=== PATIENT | female | born 1945 | race Two or more races ===

== ENCOUNTER 2024-09-23 14:14 | Inpatient (IN) | payer MEDICARE, OTHER ==
[~2024-09-23] VITALS: Ht 162.6 cm; Wt 120.1 kg
--- NOTE | 2024-09-23 14:26 | ED.PDOC ---
Altered Mental Status HPI Comments 79Y F presents to ED via EMS with chief complaint ALOC x today. Per EMS, pt has been experiencing worsening confusion today. Pt received call from PCP stating her UA showed a UTI and the culture showed that it was resistant to oral abx. Pt was referred to ED for IV abx. No other symptoms or history reported. Time Seen by MD: 14:20 Reviewed Notes: Nurses Notes, Heel Pricker Notes, Medications, Allergies Allergies: Coded Allergies: Codeine (Verified Allergy, Unknown, 09/23/24) Gabapentin (Verified Allergy, Unknown, 09/23/24) Uncoded Allergies: OPIATES (Allergy, Unknown, 09/23/24) Information Source: Patient, Emergency Med Personnel Mode of Arrival: EMS Brought in by: EMS Severity: Moderate Timing: Hours Duration: Since onset Prehospital treatment: None Quality: Confusion Recent: None History of: None Associated Signs and Symptoms: None Past Medical History PAST MEDICAL HISTORY: Unobtainable Surgical History: Unobtainable 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 Family History Family History: Unknown Social History Smoker: Non-Smoker Alcohol: Denies ETOH Use Drugs: Denies Drug Use Lives In: Home Constitutional: denies: chills, diaphoresis, fatigue, fever, malaise, sweats, weakness, others EENTM: denies: blurred vision, double vision, ear bleeding, ear discharge, ear drainage, ear pain, ear ringing, eye pain, eye redness, hearing loss, mouth pain, mouth swelling, nasal discharge, nose bleeding, nose congestion, nose pain, photophobia, tearing, throat pain, throat swelling, voice changes, others Respiratory: denies: cough, hemoptysis, orthopnea, SOB at rest, shortness of breath, SOB with excertion, stridor, wheezing, others Cardiovascular: denies: chest pain, dizzy spells, diaphoresis, Dyspnea on exertion, edema, irregular heart beat, left arm pain, lightheadedness, palpitations, PND, syncope, others Gastrointestinal: denies: abdomen distended, abdominal pain, blood streaked bowels, constipated, diarrhea, dysphagia, difficulty swallowing, hematemesis, melena, nausea, poor appetite, poor fluid intake, rectal bleeding, rectal pain, vomiting, others Genitourinary: denies: abnormal vagina bleeding, burning, dyspareunia, dysuria, flank pain, frequency, hematuria, incontinence, pain, , vagina discharge, urgency, others Neurological: reports: others (confused); denies: dizziness, fainting, headache, left sided numbness, left sided weakness, numbness, paresthesia, pre-existing deficit, right sided numbness, right sided weakness, seizure, speech problems, tingling, tremors, weakness Musculoskeletal: denies: back pain, gout, joint pain, joint swelling, muscle pain, muscle stiffness, neck pain, others Integumetry: denies: bruises, change in color, change in hair/nails, dryness, laceration, lesions, lumps, rash, wounds, others Allergic/Immunocompromised: denies: Difficulty Healing, Frequent Infections, Hives, Itching, others Hematologic/Lymphatic: denies: anemia, blood clots, easy bleeding, easy bruising, swollen glands, others Endocrine: denies: excessive hunger, excessive sweating, excessive thirst, excessive urination, flushing, intolerance to cold, intolerance to heat, unexplained weight gain, unexplained weight loss, others Psychiatric: denies: anxiety, bipolar disorder, depression, hopeless, panic disorder, schizophrenia, sleepless, suicidal, others All Other Systems: Reviewed and Negative Physical Exam General Appearance: No Apparent Distress, Normal, Other (confused) HEENT: Normal ENT Inspection, Pharynx Normal, TMs Normal Neck: Full Range of Motion, Non-Tender, Normal, Normal Inspection Respiratory: Chest Non-Tender, Lungs Clear, No Accessory Muscle Use, No Respiratory Distress, Normal Breath Sounds Cardiovascular: No Edema, No JVD, No Murmur, No Gallop, Normal Peripheral Pulses, Regular Rate/Rhythm Breast Exam: Deferred Gastrointestinal: No Organomegaly, Non Tender, No Pulsatile Mass, Normal Bowel Sounds, Soft Genitalia: Deferred Pelvic: Deferred Rectal: Deferred Extremities: No calf tenderness, Normal capillary refill, Normal inspection, Normal range of motion, Non-tender, No pedal edema Musculoskeletal : Apperance: Normal Neurologic: Alert, supervisor rubber covering II-XII nml as Tested, No Motor Deficits, Normal Affect, Normal Mood, No Sensory Deficits Cerebellar Function: NOT DONE Reflexes: NOT DONE Skin: Dry, Normal Color, Warm Lymphatic: No Adenopathy Was a procedure done? Was a procedure done?: No Differential Diagnosis (ALOC) Differential Diagnosis: Other (UTI) X-Ray, Labs, Meds, VS Vital Signs Date Time Temp Pulse Resp B/P (MAP) Pulse Ox O2 Delivery O2 Flow Rate FiO2 09/23/24 15:01 98.0 96 20 102/74 (83) 93 98.0 Lab Test 09/23/24 15:45 09/23/24 14:43 Range/Units White Blood Count 5.3 4.4-10.8 10^3/uL Red Blood Count 4.23 4.0-5.20 10^6/uL Hemoglobin 9.8 L 12.2-16.2 g/dL Hematocrit 33.6 L 36.0-46.0 % Mean Corpuscular Volume 79.5 L 80.0-100.0 fL Mean Corpuscular Hemoglobin 23.2 L 28.0-32.0 pg Mean Corpuscular Hemoglobin Concent 29.1 L 32.0-36.0 g/dL Red Cell Distribution Width 32.3 H 11.8-14.3 % Platelet Count 272 140-450 10^3/uL Mean Platelet Volume 8.1 6.9-10.8 fL Neutrophils (%) (Auto) 81.0 H 37.0-80.0 % Lymphocytes (%) (Auto) 8.8 L 10.0-50.0 % Monocytes (%) (Auto) 9.3 0.0-12.0 % Eosinophils (%) (Auto) 0.6 0.0-7.0 % Basophils (%) (Auto) 0.3 0.0-2.0 % Neutrophils # (Auto) 4.3 1.6-8.6 10 ^3/uL Lymphocytes # (Auto) 0.5 0.4-5.4 10 ^3/uL Monocytes # (Auto) 0.5 0-1.3 10 ^3/uL Eosinophils # (Auto) 0 0-0.8 10 ^3/uL Basophils # (Auto) 0 0-0.2 10 ^3/uL Nucleated Red Blood Cells 0.4 % Platelet Estimate Adequate Hypochromasia (manual) Moderate Anisocytosis (manual) Marked Microcytosis Slight Target Cells Moderate Tear Drop Cells Few Schistocytes Few Troponin I High Sensitivity 11 12 </=34 ng/L Sodium Level 137 136-145 mmol/L Potassium Level 5.7 *H 3.5-5.1 mmol/L Chloride Level 105 98-107 mmol/L Carbon Dioxide Level 24 20-31 mmol/L Anion Gap 8 5-15 Blood Urea Nitrogen 23 9-23 mg/dL Creatinine 1.46 H 0.550-1.02 mg/dL Glomerular Filtration Rate Calc 37 >90 mL/min BUN/Creatinine Ratio 15.8 10.0-20.0 Serum Glucose 75 74-106 mg/dL Lactic Acid Level 1.8 0.4-2.0 mmol/L Calcium Level 9.1 8.7-10.4 mg/dL B-Type Natriuretic Peptide 929.08 0-100 pg/mL Current Medications Medications (Trade) Dose Ordered Sig/Rj Route Start Time Stop Time Status Last Admin Sodium Bicarbonate 100 ml ONCE ONCE IV 09/23/24 16:00 09/23/24 16:33 DC 09/23/24 17:09 Calcium Gluconate/ Sodium Chloride 50 ml @ 100 mls/hr Q30M IV 09/23/24 16:00 09/23/24 16:59 DC 09/23/24 17:07 Dextrose 50 ml ONCE ONCE IV 09/23/24 16:00 09/23/24 16:33 DC 09/23/24 17:09 Insulin Human Regular (InsuLIN R) 10 units ONCE ONCE IV 09/23/24 16:00 09/23/24 16:33 DC 09/23/24 17:11 [place] [address] Ph: [phone] DIAGNOSTIC IMAGING Diagnostic Imaging Report : [id number] Signed PATIENT: LEESA ONEILL ACCT: [id number] UNIT: [id number] : 1945 LOC: ER ROOM / BED: / AGE / SEX: 79 / F ADM STATUS: REG ER SERVICE 1452 ORDERING PHYSICIAN: LATIA COHN MD PROCEDURE(s): CXRP - CHEST PORTABLE REASON: FEVER ORDER NUMBER(s): [id number], ACCESSION NUMBER(s): [id number] CHEST RADIOGRAPH Indication: FEVER Technique: Single frontal view of the chest was obtained COMPARISON: None FINDINGS: Lines and Tubes: None Lungs: Congestion Pleura: No effusion. No pneumothorax. Cardiomediastinal contours: Unremarkable Bones: Unremarkable IMPRESSION: Congestion ATED BY: LIAM GOEL MD DICTATED DATE/TIME: 09/23/241541 SIGNED BY: LIAM GOEL MD SIGNED DATE/TIME: 09/23/241541 CC: Time of 1ST Reevaluation: 14:50 Reevaluation 1ST: Unchanged Patient Education/Counseling: Diagnosis, Treatment Family Education/Counseling: No Family Present Departure 1 Departure Time of Disposition: 17:32 (Patient has a urinary tract infection that is sensitive to meropenem, Zosyn, ertapenem. Resistant to all other antibiotics and was tested against. We will start patient on Zosyn and admit patient for further workup) Impression: Primary Impression: Complicated UTI (urinary tract infection) Additional Impression: Metabolic encephalopathy Disposition: ADMITTED INPATIENT Admit to: Med Surg Condition: Serious Critical Care Note Critical Care Time?: Yes Critical care comment: Altered mental status Authorized and Performed by: Latia Cohn MD Total critical care time: Approximately 33 minutes Due to a high probability of clinically significant, life threatening deterioration, the patient required my highest level of preparedness to intervene emergently and I personally spent this critical care time directly and personally managing the patient. This critical care time included obtaining a history; examining the patient; pulse oximetry; ordering and review of studies; arranging urgent treatment with development of a management plan; evaluation of patient's response to treatment; frequent reassessment; and, discussions with other providers. This critical care time was performed to assess and manage the high probability of imminent, life-threatening deterioration that could result in multi-organ failure. It was exclusive of separately billable procedures and treating other patients and teaching time. Please see my other sections and the rest of the note for further information on patient assessment and treatment. Stability Stability form required: No Heart Score Heart Score: Heart Score Response (Comments) Value History N/A 0 EKG N/A 0 Age N/A 0 Risk Factors N/A 0 Troponin N/A 0 Total 0 I personally scribed for LATIA COHN MD ([email or web address]) on 09/23/24 at 14:26. Electronically submitted by Karyn Wheat ([facility]). I personally scribed for LATIA COHN MD ([facility] on 09/23/24 at 16:54. Electronically submitted by Karyn Wheat ([email or web address]). LATIA COHN MD Sep 23, 2024 14:26
[2024-09-23 15:00] VITALS: PULSE 83; RESP 14; O2SAT 95
[2024-09-23 15:24] LABS: Chloride 105 mmol/L (98-107); Sodium 137 mmol/L (136-145)
[2024-09-23 15:25] LABS: Anion Gap 8 (5-15); Carbon Dioxide 24 mmol/L (20-31)
[2024-09-23 15:26] LABS: Calcium 9.1 mg/dL (8.7-10.4)
[2024-09-23 15:30] LABS: BUN/Creatinine Ratio 15.8 (10.0-20.0); Blood Urea Nitrogen 23 mg/dL (9-23); Glucose 75 mg/dL (74-106)
[2024-09-23 15:40] LABS: Potassium 5.7 mmol/L (3.5-5.1)
--- NOTE | 2024-09-23 15:44 | DVH ---
CHEST RADIOGRAPH Indication: FEVER Technique: Single frontal view of the chest was obtained COMPARISON: None FINDINGS: Lines and Tubes: None Lungs: Congestion Pleura: No effusion. No pneumothorax. Cardiomediastinal contours: Unremarkable Bones: Unremarkable IMPRESSION: Congestion
[2024-09-23 16:10] LABS: Basophils # (auto) 0 10 ^3/uL (0-0.2); Basophils % (auto) 0.3 % (0.0-2.0); Eosinophils # (auto) 0 10 ^3/uL (0-0.8); Eosinophils % (auto) 0.6 % (0.0-7.0); Hemoglobin 9.8 g/dL (12.2-16.2); Lymphocytes # (auto) 0.5 10 ^3/uL (0.4-5.4); Lymphocytes % (auto) 8.8 % (10.0-50.0); Monocytes # (auto) 0.5 10 ^3/uL (0-1.3); Neutrophils # (auto) 4.3 10 ^3/uL (1.6-8.6); Nucleated Red Blood Cells % 0.4 %
[2024-09-23 16:13] LABS: Hematocrit 33.6 % (36.0-46.0); Mean Corpuscular Hemoglobin 23.2 pg (28.0-32.0); Mean Corpuscular Hgb Conc. 29.1 g/dL (32.0-36.0); Mean Corpuscular Volume 79.5 fL (80.0-100.0); Monocytes % (auto) 9.3 % (0.0-12.0); Platelet Count (auto) 272 10^3/uL (140-450); Red Blood Cells 4.23 10^6/uL (4.0-5.20); Red Cell Distribution Width 32.3 % (11.8-14.3); White Blood Cell 5.3 10^3/uL (4.4-10.8)
[2024-09-23 16:51] LABS: Anisocytosis Marked; Hypochromia Moderate; Platelet Estimate Adequate
[2024-09-23 16:52] LABS: Target Cell MODERATE; Tear Drop Cells FEW
[2024-09-23] MEDS: CALCIUM GLUC 1,000mg/50ml-NS 50 ML IV SCH (16:59)
[2024-09-23] MEDS: DEXTROSE (50%) 50ML SYRG IV ONE (17:09)
[2024-09-23] MEDS: SODIUM BICARB 8.4% 50Meq/50ml SYR Vial IV ONE (17:09)
[2024-09-23] MEDS: InsuLIN REG 1unit/0.01ml Soln (100units/ml) IV ONE (17:11)
[2024-09-23] MEDS: diphenhdrAMINE HCL 50 MG/1 ML VL IV ONE ×2 (17:44→17:46)
[2024-09-23] MEDS: PIPERACILLIN-TAZO 4.5GM 100 ML IV ONE (17:45)
[2024-09-23 19:47] VITALS: PULSE 84; RESP 16; O2SAT 99
[2024-09-23] MEDS: SODIUM CHLORIDE 0.9% 500 ML IV ONE (21:06)
--- NOTE | 2024-09-23 23:04 | DVHHPRES ---
History of Present Illness Resident Creating Document: LAURA NEVILLE RESIDENT History of Present Illness Patient is a 79-year-old female with unknown past medical history, who was brought in by ambulance due to patient experiencing increasing confusion over the last few days. According to the patient's daughter, patient was being treated for UTI on oral antibiotics, however, they received a call from patient's PCP earlier today on 09/23/2024 stating that patient has a resistant UTI not responding to oral antibiotics, requested patient to go to the nearest ER for IV antibiotic therapy. At the time of my assessment, patient is AO x2 and unable to provide accurate past medical history, past surgical history, social history or home medications. On review of systems patient does note fatigue, chills, shortness of breath, palpitations, nausea, vomiting and diarrhea. Past Medical History Unobtainable Past Surgical History Unobtainable Past Social History Unobtainable Review of Systems Constitutional: Yes: Chills, Malaise; No: Fever, Sweats, Weakness, Other Eyes: No: Pain, Vision change, Conjunctivae inflammation, Eyelid inflammation, Other, Redness ENT: No: Ear pain, Ear discharge, Nose pain, Nose discharge, Nose congestion, Mouth pain, Mouth swelling, Throat pain, Throat swelling, Other Respiratory: Shortness of breath; No: Cough, Dry, SOB with excertion, Wheezing, Hemoptysis, Pleuritic Pain, Sputum, Wheezing, Other Cardiovascular: Palpitations; No: Chest Pain, Orthopnea, Paroxysmal Noc. Dyspnea, Edema, Lt Headedness, Other Gastrointestinal: Nausea, Vomiting, Diarrhea; No: Abdominal Pain, Constipation, Melena, Hematochezia, Other Genitourinary: No Dysuria, No Frequency, No Incontinence, No Hematuria, No Retention, No Other Musculoskeletal: No: other, neck pain, shoulder pain, arm pain, back pain, hand pain, leg pain, foot pain Skin: No: Rash, Lesions, Jaundice, Bruising, Other Neurological: No: Weakness, Numbness, Incoordination, Change in speech, Confusion, Seizures, Other Allergies: Coded Allergies: Codeine (Verified Allergy, Unknown, 09/23/24) Gabapentin (Verified Allergy, Unknown, 09/23/24) Uncoded Allergies: OPIATES (Allergy, Unknown, 09/23/24) Exam Vital Signs Vital Signs Date Time Temp Pulse Resp B/P (MAP) Pulse Ox O2 Delivery O2 Flow Rate FiO2 09/23/24 20:00 93 09/23/24 19:47 98.4 16 95/64 (74) 99 98.4 09/23/24 15:00 Nasal Cannula* 2 28 General Appearance: Alert, Cooperative, No acute distress, Other (AO x2) HEENT: Atraumatic, PERRLA, EOMI Respiratory: Clear to auscultation, Normal air movement, Other (Decreased bilateral breath sounds) Cardiovascular: Regular rate, No murmurs Abdominal: Normal bowel sounds, No tenderness Extremities: Other (2+ lower extremity edema) Skin: No rashes Neuro: Normal speech Psych/Mental Status: Mood NL Labs/Xrays Labs Test 09/23/24 18:25 09/23/24 15:45 09/23/24 14:43 Range/Units Troponin I High Sensitivity 12 </=34 ng/L White Blood Count 5.3 4.4-10.8 10^3/uL Red Blood Count 4.23 4.0-5.20 10^6/uL Hemoglobin 9.8 L 12.2-16.2 g/dL Hematocrit 33.6 L 36.0-46.0 % Mean Corpuscular Volume 79.5 L 80.0-100.0 fL Mean Corpuscular Hemoglobin 23.2 L 28.0-32.0 pg Mean Corpuscular Hemoglobin Concent 29.1 L 32.0-36.0 g/dL Red Cell Distribution Width 32.3 H 11.8-14.3 % Platelet Count 272 140-450 10^3/uL Mean Platelet Volume 8.1 6.9-10.8 fL Neutrophils (%) (Auto) 81.0 H 37.0-80.0 % Lymphocytes (%) (Auto) 8.8 L 10.0-50.0 % Monocytes (%) (Auto) 9.3 0.0-12.0 % Eosinophils (%) (Auto) 0.6 0.0-7.0 % Basophils (%) (Auto) 0.3 0.0-2.0 % Neutrophils # (Auto) 4.3 1.6-8.6 10 ^3/uL Lymphocytes # (Auto) 0.5 0.4-5.4 10 ^3/uL Monocytes # (Auto) 0.5 0-1.3 10 ^3/uL Eosinophils # (Auto) 0 0-0.8 10 ^3/uL Basophils # (Auto) 0 0-0.2 10 ^3/uL Nucleated Red Blood Cells 0.4 % Platelet Estimate Adequate Hypochromasia (manual) Moderate Anisocytosis (manual) Marked Microcytosis Slight Target Cells Moderate Tear Drop Cells Few Schistocytes Few Sodium Level 137 136-145 mmol/L Potassium Level 5.7 *H 3.5-5.1 mmol/L Chloride Level 105 98-107 mmol/L Carbon Dioxide Level 24 20-31 mmol/L Anion Gap 8 5-15 Blood Urea Nitrogen 23 9-23 mg/dL Creatinine 1.46 H 0.550-1.02 mg/dL Glomerular Filtration Rate Calc 37 >90 mL/min BUN/Creatinine Ratio 15.8 10.0-20.0 Serum Glucose 75 74-106 mg/dL Lactic Acid Level 1.8 0.4-2.0 mmol/L Calcium Level 9.1 8.7-10.4 mg/dL B-Type Natriuretic Peptide 929.08 0-100 pg/mL Assessment/Plan Assessment/Plan Acute metabolic encephalopathy, improving Probable acute complicated UTI - CXR: Congestion - head CT: No acute intracranial abnormality - ordered serum ammonia - IV Zosyn - IV NS 500 cc bolus History of AFib, on Xarelto at home Secondary hypercoagulable state due to above Congestive heart failure can not be ruled out - therapeutic Lovenox b.i.d., currently holding - ordered serum BNP - ordered echocardiogram Anemia, likely microcytic with MCV 79.5; chronic versus blood loss - ordered stool occult blood - holding Lovenox - ordered CT abdomen pelvis - patient noted to have multiple bruises on bilateral lower extremities and bilateral upper extremities, however, unable to provide accurate history regarding any recent falls [place], hemodynamically mediated/VMN on possible CKD stage III Hyperkalemia due to above, now improved - renal USG: No hydronephrosis or other renal abnormality demonstrated - IV calcium gluconate - insulin dextrose, sodium bicarb Hyperbilirubinemia Hypoalbuminemia - ordered liver ultrasound - monitor Morbid obesity - counseled Goals of care: Full code Plan discussed with patient Plan discussed with Dr. Weems Plan discussed with: Patient, Other (RN) My Orders Orders - LAURA NEVILLE RESIDENT Procedure Category Date Status Time Admit ADMIT 09/23/24 Verified 22:56 Allergies MEGAN 09/23/24 Verified 22:56 Code Status CODE 09/23/24 Verified 22:56 Acetaminophen Tablet PHA 09/23/24 Verified (Tylenol Tablet) 23:00 Enoxaparin Sodium PHA 09/24/24 Verified (Lovenox) 10:00 Complete Blood Count LAB 09/24/24 Verified 04:00 Comprehensive LAB 09/24/24 Verified Metabolic Panel 04:00 Npo (Nothing By DIET 09/24/24 Verified Mouth) Diet Breakfast Pt Request For Service PT 09/23/24 Verified 22:56 * Swallow Request ST 09/23/24 Verified 22:56 Condition: Unstable MEGAN 09/23/24 Verified 22:56 Notify Md Of Changes MEGAN 09/23/24 Verified From Base 22:56 Electrocardigram EKG 09/23/24 Verified 22:[address] 09/23/24 Verified 22:56 Stool Occult Blood LAB 09/23/24 Verified 22:56 Echo 2d Mode Cardiac US 09/23/24 Verified DOP 22:56 Comprehensive LAB 09/23/24 Verified Metabolic Panel 22:56 Complete Blood Count LAB 09/23/24 Verified 22:56 Zosyn Extended PHA 09/24/24 Verified Infusion 06:00 Kidney US 09/23/24 Verified 22:56 Date of Service: Sep 23, 2024 Billing Provider: ZOHAIB WEEMS MD Common Visit Codes: 79531-VQSDIFH INP/OBS CARE (HIGH) Secondary Visit Codes: 29629-[id number] CARE PLAN 30 MINUTES LAURA NEVILLE RESIDENT Sep 23, 2024 23:04 ZOHAIB WEEMS MD Sep 24, 2024 19:03
[2024-09-23 23:36] LABS: Basophils # (auto) 0 10 ^3/uL (0-0.2); Basophils % (auto) 0.2 % (0.0-2.0); Eosinophils # (auto) 0 10 ^3/uL (0-0.8); Eosinophils % (auto) 0.4 % (0.0-7.0); Hematocrit 30.2 % (36.0-46.0); Hemoglobin 8.9 g/dL (12.2-16.2); Lymphocytes # (auto) 0.4 10 ^3/uL (0.4-5.4); Lymphocytes % (auto) 6.8 % (10.0-50.0); Mean Corpuscular Hemoglobin 23.1 pg (28.0-32.0); Mean Corpuscular Hgb Conc. 29.4 g/dL (32.0-36.0); Mean Corpuscular Volume 78.5 fL (80.0-100.0); Monocytes # (auto) 0.6 10 ^3/uL (0-1.3); Monocytes % (auto) 11.1 % (0.0-12.0); Neutrophils # (auto) 4.6 10 ^3/uL (1.6-8.6); Neutrophils % (auto) 81.5 % (37.0-80.0); Nucleated Red Blood Cells % 0.1 %; Platelet Count (auto) 284 10^3/uL (140-450); Red Blood Cells 3.85 10^6/uL (4.0-5.20); Red Cell Distribution Width 32.2 % (11.8-14.3); White Blood Cell 5.7 10^3/uL (4.4-10.8)
[2024-09-23 23:56] LABS: Alanine Aminotransferase 23 U/L (7-40); Alkaline Phosphatase 99 U/L (46-116); Anion Gap 6 (5-15); BUN/Creatinine Ratio 14.4 (10.0-20.0); Blood Urea Nitrogen 19 mg/dL (9-23); Calcium 9.3 mg/dL (8.7-10.4); Carbon Dioxide 30 mmol/L (20-31); Chloride 105 mmol/L (98-107); Potassium 4.5 mmol/L (3.5-5.1); Sodium 141 mmol/L (136-145)
[2024-09-24] VITALS (7 sets, daily range): BP systolic 86–118; BP diastolic 47–98; PULSE 70–86; RESP 16–20; TEMP 97.3–98.6; O2SAT 91–100
[2024-09-24 00:14] LABS: Albumin 2.9 g/dL (3.2-4.8); Aspartate Aminotransferase 46 U/L (13-40); Bilirubin, Total 1.9 mg/dL (0.2-1.0); Glucose 62 mg/dL (74-106); Total Protein 5.6 g/dL (5.7-8.2)
--- NOTE | 2024-09-24 00:20 | DVH ---
EXAM: CT HEAD WITHOUT CONTRAST INDICATION: ALOC TECHNIQUE: CT of the head without intravenous contrast. Radiation Dose : 1. Head: CT Dose: CTDI volume is 58 mGy. Dose-length product is 1142 mGy*cm The dose indicators for CT are the volume Computed Tomography (CT) Dose Index (CTDIvol) and the Dose Length Product (DLP), and are measured in units of mGy and mGy-cm, respectively. These indicators are not patient dose, but values generated from the CT scanner acquisition factors. The report includes radiation exposure data for exposures received during this examination. COMPARISON: None FINDINGS: There is no evidence of acute intracranial hemorrhage, extra-axial collection, mass effect, midline s hift, herniation or hydrocephalus. The ventricles, sulci and cisterns are age appropriate. The martin-white differentiation is intact. Patchy periventricular and subcortical white matter hypoattenuation is nonspecific but may be related to small vessel ischemic disease. The visualized paranasal sinuses and mastoid air cells are clear. The surrounding soft tissues and osseous structures are unremarkable. IMPRESSION: 1. No acute intracranial abnormality. Radiation optimization: All CT scans at this facility use at least one of these dose optimization reynaldo hniques: automated exposure control mA and/or kV adjustment per patient size (includes targeted exam s where dose is matched to clinical indication) or iterative reconstruction.
--- NOTE | 2024-09-24 00:25 | DVH ---
INDICATION: hydronephrosis TECHNIQUE: Multiple real-time sonographic images of the kidneys and bladder were obtained. COMPARISON: None FINDINGS: Right kidney measures approximately 9.2 cm in length and the left 9.1 cm. Both kidneys are within nor mal limits in size, contour, echogenicity, and cortical thickness. No hydronephrosis. Castillo catheter present in a non distended urinary bladder. IMPRESSION: No hydronephrosis or other renal abnormality demonstrated.
[2024-09-24 01:35] LABS: Anisocytosis Marked; Hypochromia Moderate; Target Cell MODERATE
[2024-09-24 01:36] LABS: Platelet Estimate Adequate
[2024-09-24 01:56] LABS: Urine Bacteria None Seen /hpf (None Seen)
[2024-09-24 02:43] LABS: Urine Blood 1+ /uL (Negative); Urine Clarity Clear (Clear); Urine Color Yellow (Yellow); Urine Protein, UAD TRACE (Negative); Urine Specific Gravity 1.035 (1.001-1.035); Urine Squamous Epithelial Cell FEW /hpf (<5); Urine Urobilinogen Normal (Negative); Urine pH 5.5 (5.0-9.0)
[2024-09-24 02:47] LABS: Urine WBC < 1 /HPF (0-5)
[2024-09-24] MEDS: PIPERACILLIN-TAZOB 3.375GM 100 ML IV SCH (05:56)
--- NOTE | 2024-09-24 08:08 | DVH ---
INDICATION: ELEVATED STAR TECHNIQUE: Multiple real-time sonographic images of the abdomen were obtained. COMPARISON: None FINDINGS: Evaluation technically limited by patient body habitus. The liver is homogenous in echogenicity. The liver measures 11.8 cm. No intrahepatic biliary ductal dilatation is noted. The gallbladder wall measures 0.2 cm and is unremarkable. No gallstones or sludge is seen. The com mon duct measures 0.5 cm and is unremarkable. No pericholecystic fluid is noted. Negative sonographic Randall's sign. The right kidney measures 8.5 cm. No hydronephrosis. The pancreas is not well visualized due to obscuration from bowel gas. The visualized portions of the IVC and aorta are grossly unremarkable. There are bilateral pleural effusions. Bilateral pleural effusions. IMPRESSION: 1. No acute sonographic abnormality in the right upper quadrant. 2. Bilateral pleural effusions.
--- NOTE | 2024-09-24 08:13 | DVH ---
CLINICAL INFORMATION: 79 years old, Female; rule out intraabdominal bleed. No other clinical informa tion provided. TECHNIQUE: Axial CT images of the abdomen and pelvis were obtained without IV contrast. Coronal and s agittal reformatted images were obtained, reviewed, and stored. Evaluation of the parenchymal organs is limited without IV contrast. Evaluation of the bowel and mesentery is limited without oral contras t. All CT scans at this medical facility are performed using dose modulation techniques as appropriat e to a performed exam including the following: Automated exposure control was utilized; adjustment of the MA and/or KV according to patient size; and use of iterative reconstruction technique. CTDIvol = 27.28 mGy DLP = 1447.1 mGy-cm COMPARISON: None FINDINGS: Lung bases: Moderate right pleural effusion with overlying atelectasis and/or consolidation. Small le ft pleural effusion with mild overlying atelectasis. Moderate cardiomegaly with small pericardial eff usion. Dense coronary artery calcification. Liver: Grossly unremarkable in its noncontrast enhanced appearance. No abnormal density or focal lesi on identified. Biliary: No calcified gallstones or biliary ductal dilatation. Spleen: Unremarkable. Pancreas: Atrophic pancreas. Adrenal glands: Unremarkable. No mass. Kidneys: No hydronephrosis. No renal or ureteral calculi. Aorta/Vascular: Moderate atherosclerotic calcification. No abdominal aortic aneurysm. Retroperitoneum: No lymphadenopathy. No retroperitoneal fluid collection to suggest hematoma. Bowel/mesentery: No small bowel obstruction. Appendix is visualized and appears unremarkable. Scatte red colonic diverticula without adjacent inflammatory changes to suggest diverticulitis. Pelvic organs: Grossly unremarkable. Bladder: Unremarkable. No mass. Abdominal wall: Diffuse anasarca. Bones: Chronic appearing compression fractures involving the superior endplates of the L2 and L4 vert ebral bodies with associated sclerosis. There is up to 30% loss of height associated with both compre ssion fractures. Bilateral total hip arthroplasties with associated beam hardening artifact which bhatia its evaluation of adjacent structures. IMPRESSION: 1. Moderate right pleural effusion with overlying atelectasis and/or consolidation. Small left pleura l effusion with overlying atelectasis. 2. Moderate cardiomegaly with small pericardial effusion dense coronary artery calcification. 3. No intra-abdominal fluid collection identified to suggest hematoma. 4. Scattered colonic diverticula without adjacent inflammatory changes to suggest diverticulitis. 5. Anasarca. 6. Chronic appearing compression fractures of the L2 and L4 vertebral bodies as described above. Valeria elate with clinical findings. If there is clinical concern for an acute component of the compression fractures, MRI could be obtained.
[2024-09-24 08:30] LABS: Basophils # (auto) 0 10 ^3/uL (0-0.2); Basophils % (auto) 0.3 % (0.0-2.0); Eosinophils # (auto) 0 10 ^3/uL (0-0.8); Eosinophils % (auto) 0.7 % (0.0-7.0); Hematocrit 30.6 % (36.0-46.0); Lymphocytes # (auto) 0.4 10 ^3/uL (0.4-5.4); Lymphocytes % (auto) 7.8 % (10.0-50.0); Mean Corpuscular Hemoglobin 23.2 pg (28.0-32.0); Mean Corpuscular Hgb Conc. 29.5 g/dL (32.0-36.0); Mean Corpuscular Volume 78.8 fL (80.0-100.0); Monocytes # (auto) 0.5 10 ^3/uL (0-1.3); Monocytes % (auto) 9.3 % (0.0-12.0); Neutrophils % (auto) 81.9 % (37.0-80.0); Nucleated Red Blood Cells % 0.3 %; Platelet Count (auto) 254 10^3/uL (140-450); Red Blood Cells 3.88 10^6/uL (4.0-5.20); White Blood Cell 4.9 10^3/uL (4.4-10.8)
[2024-09-24 08:45] LABS: Alanine Aminotransferase 25 U/L (7-40); Alkaline Phosphatase 101 U/L (46-116); Anion Gap 7 (5-15); BUN/Creatinine Ratio 17.1 (10.0-20.0); Blood Urea Nitrogen 21 mg/dL (9-23); Calcium 9.2 mg/dL (8.7-10.4); Carbon Dioxide 28 mmol/L (20-31); Chloride 105 mmol/L (98-107); Potassium 4.5 mmol/L (3.5-5.1); Sodium 140 mmol/L (136-145)
[2024-09-24 08:49] LABS: Albumin 2.9 g/dL (3.2-4.8); Aspartate Aminotransferase 52 U/L (13-40); Glucose 62 mg/dL (74-106); Total Protein 5.5 g/dL (5.7-8.2)
[2024-09-24 09:34] LABS: COVID19 ANTIGEN SOFIA FIA NEGATIVE (NEGATIVE); Rapid Influenza A Negative (Negative); Rapid Influenza B Negative (Negative)
[2024-09-24] MEDS ORDERED: ENOXAPARIN SOD 120 MG/0.8 ML SYRINGE SC SCH (10:00)
[2024-09-24] MEDS ORDERED: ENOXAPARIN SOD 40 MG/0.4 ML SYRINGE SC SCH (10:00)
--- NOTE | 2024-09-24 11:16 | DVHPNRES ---
Progress Note Date Seen: Sep 24, 2024 Resident Creating Document: JAIDEN RICE RESIDENT Has the PT tested + for MRSA If YES, has PT been informed?: No Medical Necessity Reason Pt with a Central, PICC or Fol: No Subjective Review of Systems This is a 79-year-old female with unknown past medical history, patient was brought by ambulance due to patient experiencing increasing confusion over the last few days. Per patient's daughter, patient was being treated for UTI and was taking oral antibiotics however they received a call from patient's PCP earlier today on 09/23/2024 stating that the patient has a resistant UTI not responding to oral antibiotics and requested to low to the nearest ER for IV antibiotic therapy. Upon admission, the patient was alert but disoriented unable to provide accurate past medical history, social or surgical history. Upon my examination, patient was alert and disoriented. Patient was having severe bilateral peripheral edema extending to bilateral hips, 3+ pitting edema and anasarca even involving the abdomen. Initial chest x-ray showed mild pulmonary congestion, CT scan of the head was performed and came back unremarkable. We performed an abdominal CT scan which showed moderate right- sided pleural effusion and small left-sided pleural effusion associated with anasarca. Stool bacterial culture, blood culture and urine culture were ordered. Echocardiogram was ordered as well. Patient was admitted for further assessment and management. Patient seen and examined at bedside. Patient was alert but disoriented not able to provide a pertinent medical history. Grandson was hold at [phone] unable to talk to him. Upon my examination, the patient was having severe bilateral peripheral edema extending to bilateral hips, 3+ pitting edema involving also the abdomen. Start the patient on IV furosemide [address] scan of the chest due to severe right-sided pleural effusion to completely rule out pneumonia. We will try to contact family once again. ROS unable to obtain due to patient being disoriented Objective vital signs Vital Sign Date Time Temp Pulse Resp B/P (MAP) Pulse Ox O2 Delivery O2 Flow Rate FiO2 09/24/24 08:00 81 09/24/24 07:45 97.6 16 122/70 (87) 100 97.6 09/24/24 07:35 Nasal Cannula* 4 36 Total Intake and Output 09/23/24 09/23/24 09/24/24 15:00 23:00 07:00 Intake Total 100 ml Balance 100 ml medications Current Medications Medications Dose Ordered Sig/Rj Route Start Time Stop Time Status Last Admin Dose Admin Acetaminophen 325 mg Q4HP PRN PO 09/23/24 23:00 Piperacillin Sod/ Tazobactam Sod 100 ml @ 25 mls/hr Q8HR IV 09/24/24 06:00 09/24/24 05:56 25 MLS/HR Enoxaparin Sodium 110 mg Q12HR SC 09/24/24 10:00 Hold Furosemide 40 mg BIDD IV 09/24/24 18:00 Examination Physical Examination General: Patient alert but disoriented. HEENT: Normocephalic, atraumatic, moist mucous membranes Respiratory/pulmonary: There are bilateral crackles on both lung marie with decreased breath sounds significantly in the right lower lobe. No wheezes at this time. Cardiovascular: Normal heart sounds S1 and S2 with no associated murmurs Abdomen: Abdomen nondistended, there is no pain to palpation in any of the abdominal quadrants, no palpable masses. There is anasarca with abdominal edema. Extremities: There is severe bilateral peripheral edema extending to both hips, 3+ pitting edema. Peripheral Pulses: 3+ Radial (R). 3+ Radial (L). 3+ Dorsalis pedis (R). 3+ Dorsalis pedis(L) Skin: No rashes or pruritus, there is no sacral edema present at this time. Neurological: Patient seems disoriented and not providing coherent story. laboratory and microbiology Laboratory Tests 09/24/24 08:15 Test 09/24/24 08:15 Range/Units Serum Glucose 62 L 74-106 mg/dL Problem List/Assessment/Plan Problem List/Assessment/Plan Assessment/Plan Acute metabolic encephalopathy likely in the setting of sepsis -Ammonia was elevated at 33 -start lactulose 30cc daily -Correct underlying infection, currently on IV Zosyn Sepsis due to UTI due to multi drug resistant microorganism -daughter states that received a call from her PCP regarding urine culture showing a multidrug resistant microorganism requiring IV antibiotic -Ordered UA, Urine cultures -discontinue zosyn -Start meropenem -Awaiting for cultures with specific microoganism History of AFib, on Xarelto at home -therapeutic Lovenox b.i.d., currently holding -ordered serum BNP, came back at 995 -ordered echocardiogram, pending -Start furosemide 40mg IV BID Acute on chronic microcytic hypochromic anemia -ordered stool occult blood -holding Lovenox -Ordered iron panel and ferritin -ordered CT abdomen pelvis which is showing moderate right-sided pleural effusion and small left-sided pleural effusion associated with anasarca [place], hemodynamically mediated/VMN on possible CKD stage III Hyperkalemia due to above, now improved -renal USG: No hydronephrosis or other renal abnormality demonstrated Hyperbilirubinemia Hypoalbuminemia -ordered liver ultrasound which showed no sonographic abnormalities in the right upper quadrant -monitor Morbid obesity -personal financial counselor on lifestyle modifications and diet Goals of care discussed with the patient and daughter at bedside for >25min, FULL CODE Plan discussed with Dr. Carias Plan discussed with: Patient, Daughter My Orders My Orders Orders - JAIDEN RICE Procedure Category Date Status Time Urine Bacterial TANYA 09/24/24 In Process Culture 06:51 Stool Occult Blood LAB 09/24/24 Logged 06:52 Stool Wbc LAB 09/24/24 Logged 06:52 Stool Bacterial TANYA 09/24/24 Logged Culture 06:52 Furosemide Injection PHA 09/24/24 In Process (Lasix Injection) 18:[address] 09/24/24 Taken 09:31 Free T4 (Free LAB 09/24/24 Transmitted Thyroxine) 10:58 Date of Service: Sep 24, 2024 Billing Provider: ZHOAIB CARIAS MD Common Visit Codes: [id number] INP/OBS CARE(HIGH) JAIDEN RICE RESIDENT Sep 24, 2024 11:16 ZOHAIB CARIAS MD Sep 24, 2024 19:24
--- NOTE | 2024-09-24 11:18 | DVH ---
Procedure: CT CHEST WITHOUT CONTRAST Reason for study/Clinical History: PLEURAL EFFUSIONS/ PNA Comparison Study: None available at time of dictation. Exam Date: 09/24/2024 09:36 AM TECHNIQUE: Multidetector CT of the chest was performed from the lung apices to the upper abdomen with out the use of intravenous contract. Axial, coronal and sagittal multiplanar reformats were performed . Radiation Dose Information: CT Dose: CTDI volume is 29.85 mGy. Dose-length product is 1003.43 mGy*cm The dose indicators for CT are the volume Computed Tomography (CT) Dose Index (CTDIvol) and the Dose Length Product (DLP), and are measured in units of mGy and mGy-cm, respectively. These indicators are not patient dose, but values generated from the CT scanner acquisition factors. The report includes radiation exposure data for exposures received during this examination. FINDINGS: Lower neck: Normal thyroid. Lungs: Large right pleural effusion. Small left pleural effusion. Increased interstitial opacities. Heart/Vascular Structures: Cardiomegaly. Coronary artery calcifications. Lymph Nodes: No adenopathy Pleura: No pleural effusion or significant pneumothorax. Musculoskeletal: No acute osseous abnormality. Soft tissues: Normal. Upper abdomen: Limited portions of the upper abdomen are unremarkable. IMPRESSION: Cardiomegaly with CHF. Large right pleural effusion. Small left pleural effusion. Radiation optimization: All CT scans at this facility use at least one of these dose optimization reynaldo hniques: automated exposure control mA and/or kV adjustment per patient size (includes targeted exam s where dose is matched to clinical indication) or iterative reconstruction.
[2024-09-24 12:48] LABS: % Iron Saturation 8.8 % (15-50)
[2024-09-24 13:23] LABS: INR 1.42 (0.9-1.15); Partial Thromboplastin Time 31.9 SEC (24.5-34.5); Prothrombin Time 14.5 sec (9.3-11.8)
[2024-09-24] MEDS: ACETAMINOPHEN 325 MG TAB PO PRN (13:30)
[2024-09-24] MEDS: LEVOTHYROXINE SODIUM 50 MCG TAB PO SCH (13:30)
[2024-09-24] MEDS: LACTULOSE 20Gm/30ML SOLN PO SCH (14:22)
[2024-09-24] MEDS: MEROPENEM 1GM IVPB 50 ML IV SCH (14:22)
[2024-09-24] MEDS ORDERED: COEN400C8 OR (15:40)
[2024-09-24] MEDS ORDERED: ASCO500W PO (15:40)
[2024-09-24] MEDS ORDERED: LEVO112T4 PO (15:40)
[2024-09-24] MEDS ORDERED: LORA-1123 PO (15:40)
[2024-09-24] MEDS ORDERED: CHOL135C10 OR (15:40)
[2024-09-24] MEDS ORDERED: OMEG-20 PO (15:40)
[2024-09-24] MEDS ORDERED: MAGN400S25 PO (15:40)
[2024-09-24] MEDS ORDERED: BUDE1AER16 IN (15:40)
[2024-09-24] MEDS ORDERED: POTA-36 PO (15:40)
[2024-09-24] MEDS ORDERED: ACET250T20 PO (15:40)
[2024-09-24] MEDS ORDERED: FLAX100024 PO (15:40)
[2024-09-24] MEDS ORDERED: MELO7.5T7 PO (15:40)
[2024-09-24] MEDS ORDERED: DIGO0.12 PO (15:40)
[2024-09-24] MEDS ORDERED: RIVA20TA PO (15:40)
[2024-09-24] MEDS ORDERED: CYAN100060 PO (15:40)
[2024-09-24] MEDS ORDERED: FURO20TA3 PO (15:40)
[2024-09-24] MEDS ORDERED: BISA10SU45 RE (15:40)
[2024-09-24] MEDS ORDERED: IPRAAER6 IN (15:40)
[2024-09-24] MEDS ORDERED: CRAN600T OR (15:40)
[2024-09-24] MEDS ORDERED: [UNRECOGNIZED DRUG - CODE] PO (15:40)
[2024-09-24] MEDS ORDERED: CALC-509 PO (15:40)
[2024-09-24 15:56] LABS: Band Neutrophils % (manual) 0; Basophils % (manual) 0 (0.0-2.0); Blast Cells 0; Eosinophils % (manual) 0 (0-7); Metamyelocytes % 0; Myelocytes % 0; Promyelocytes % 0; Reactive Lymphocytes 0
--- NOTE | 2024-09-24 16:11 | DVH ---
CHEST RADIOGRAPH Indication: POST THORACENTESIS Technique: Single frontal view of the chest was obtained COMPARISON: XY CHEST PORTABLE on DOS: 09/23/24 FINDINGS: Lines and Tubes: None Lungs: Clear Pleura: No effusion. No pneumothorax. Cardiomediastinal contours: Unremarkable Bones: Unremarkable IMPRESSION: No appreciable pneumothorax.
[2024-09-24 16:40] LABS: Body Fluid Red Blood Cells 93 CUMM (0-2000); Body Fluid White Blood Cells 290 CUMM (0-200)
--- NOTE | 2024-09-24 16:42 | DVH ---
PROCEDURE: ULTRASOUND GUIDED THORACENTESIS USING TEMPORARY CATHETER HISTORY: 79 Female with requiring thoracentesis. DOCUMENTATION: Informed consent was obtained and a procedural time out was performed. TECHNIQUE: Ultrasound was used to locate the right pleural fluid collection with an image archived in the PACS. The skin over the right posterior hemithorax was sterilely prepped, draped, and infiltrate d with 1% lidocaine. Under real time ultrasound guidance, the right pleural space was accessed with a 19-gauge Yueh needle and connected to Vacutainers. The Yueh catheter was advanced, the needle was re moved and the temporary catheter was advanced and connected to the Vacutainer. Approximately 1.05 lit ers of right fluid was removed. The temporary catheter was removed and sterile dressings were applied . FINDINGS: Ultrasound demonstrates a right pleural effusion. Imaging confirms the needle tip within th e fluid. IMPRESSION: SUCCESSFUL ULTRASOUND GUIDED THORACENTESIS. Performed by Dr. James.
[2024-09-24] MEDS ORDERED: FUROSEMIDE 40 MG/4 ML VIAL IV SCH (18:00)
[2024-09-24] MEDS: ALBUMIN 25% 100 ML IV ONE (18:04)
[2024-09-24 18:16] LABS: Platelet Count (auto) 245 10^3/uL (140-450)
[2024-09-24 18:17] LABS: Anisocytosis Moderate; Lymphocytes % (manual) 11 (10.0-50.0); Monocytes % (manual) 9 (0-12); Platelet Estimate Adequate
[2024-09-24 18:18] LABS: Hypochromia Moderate; Large Platelets FEW; Stomatocytes Few
[2024-09-24 18:19] LABS: Target Cell MODERATE
[2024-09-25] VITALS (8 sets, daily range): BP systolic 87–155; BP diastolic 42–85; PULSE 64–98; RESP 16–20; TEMP 97.1–98.9; O2SAT 93–98
[2024-09-25 08:27] LABS: Basophils # (auto) 0.1 10 ^3/uL (0-0.2); Basophils % (auto) 1.4 % (0.0-2.0); Eosinophils # (auto) 0 10 ^3/uL (0-0.8); Eosinophils % (auto) 0.7 % (0.0-7.0); Hematocrit 30.2 % (36.0-46.0); Hemoglobin 8.6 g/dL (12.2-16.2); Lymphocytes # (auto) 0.5 10 ^3/uL (0.4-5.4); Lymphocytes % (auto) 8.7 % (10.0-50.0); Mean Corpuscular Hemoglobin 23.5 pg (28.0-32.0); Mean Corpuscular Hgb Conc. 28.5 g/dL (32.0-36.0); Mean Corpuscular Volume 82.6 fL (80.0-100.0); Monocytes # (auto) 0.6 10 ^3/uL (0-1.3); Monocytes % (auto) 11.1 % (0.0-12.0); Neutrophils # (auto) 4.1 10 ^3/uL (1.6-8.6); Neutrophils % (auto) 78.1 % (37.0-80.0); Nucleated Red Blood Cells % 0.6 %; Platelet Count (auto) 215 10^3/uL (140-450); Red Blood Cells 3.66 10^6/uL (4.0-5.20); Red Cell Distribution Width 31.9 % (11.8-14.3); White Blood Cell 5.3 10^3/uL (4.4-10.8)
[2024-09-25 08:28] LABS: Chloride 104 mmol/L (98-107); Potassium 4.6 mmol/L (3.5-5.1); Sodium 140 mmol/L (136-145)
[2024-09-25 08:29] LABS: Anion Gap 8 (5-15); Calcium 9.3 mg/dL (8.7-10.4); Carbon Dioxide 28 mmol/L (20-31)
[2024-09-25 08:34] LABS: BUN/Creatinine Ratio 15.3 (10.0-20.0); Blood Urea Nitrogen 21 mg/dL (9-23)
[2024-09-25 08:36] LABS: Glucose 68 mg/dL (74-106)
[2024-09-25 09:04] LABS: Anisocytosis Slight; Hypochromia Moderate; Target Cell MODERATE
[2024-09-25 09:05] LABS: Platelet Estimate Adequate
[2024-09-25 13:07] LABS: Protein, Body Fluid 1.9 g/dL (.)
[2024-09-25] MEDS: HALOPERIDOL 1 MG TAB PO ONE (13:53)
--- NOTE | 2024-09-25 13:55 | DVHPNRES ---
Progress Note Date Seen: Sep 25, 2024 Resident Creating Document: JAIDEN RICE RESIDENT Has the PT tested + for MRSA If YES, has PT been informed?: No Medical Necessity Reason Pt with a Central, PICC or Fol: No Subjective Review of Systems This is a 79-year-old female with unknown past medical history, patient was brought by ambulance due to patient experiencing increasing confusion over the last few days. Per patient's daughter, patient was being treated for UTI and was taking oral antibiotics however they received a call from patient's PCP earlier today on 09/23/2024 stating that the patient has a resistant UTI not responding to oral antibiotics and requested to low to the nearest ER for IV antibiotic therapy. Upon admission, the patient was alert but disoriented unable to provide accurate past medical history, social or surgical history. Upon my examination, patient was alert and disoriented. Patient was having severe bilateral peripheral edema extending to bilateral hips, 3+ pitting edema and anasarca even involving the abdomen. Initial chest x-ray showed mild pulmonary congestion, CT scan of the head was performed and came back unremarkable. We performed an abdominal CT scan which showed moderate right- sided pleural effusion and small left-sided pleural effusion associated with anasarca. Stool bacterial culture, blood culture and urine culture were ordered. Echocardiogram was ordered as well. Patient was admitted for further assessment and management. Patient seen and examined at bedside. The patient is alert and slightly more oriented in person but not in place or time. Per family, they think that she is very near to her baseline mentallywise but still disoriented. Patient had a panic attack and odd thoughts "that they are trying to poison her" we gave one dose of haloperidol since she was agitated and ripped her IVs. We place a consult for tele psych and physical therapy. We will continue IV meropenem at this time since the patient is having E coli with ESBL in the urine culture when they did as an outpatient. Preliminary urine culture at this hospitalization is showing no growth so far. We will continue antibiotics at this time and wait for psych evaluation. ROS unable to obtain due to patient is slightly disoriented. Objective vital signs Vital Sign Date Time Temp Pulse Resp B/P (MAP) Pulse Ox O2 Delivery O2 Flow Rate FiO2 09/25/24 09:00 97.9 90 18 155/83 (107) 95 97.9 09/25/24 08:00 Nasal Cannula* 2 28 Total Intake and Output 09/24/24 09/24/24 09/25/24 15:00 23:00 07:00 Intake Total 236 ml 275 ml Output Total 400 ml 175 ml Balance -164 ml 100 ml medications Current Medications Medications Dose Ordered Sig/Rj Route Start Time Stop Time Status Last Admin Dose Admin Acetaminophen 325 mg Q4HP PRN PO 09/23/24 23:00 09/24/24 20:13 325 MG Enoxaparin Sodium 110 mg Q12HR SC 09/24/24 10:00 Hold Lactulose 30 ml DAILY PO 09/24/24 16:00 09/25/24 10:39 30 ML Meropenem 50 ml @ 17 mls/hr Q12HR IV 09/24/24 12:30 09/25/24 10:39 17 MLS/HR Levothyroxine Sodium 75 mcg QAM@0600 PO 09/26/24 06:00 Examination Physical Examination General: Patient alert but disoriented. HEENT: Normocephalic, atraumatic, moist mucous membranes Respiratory/pulmonary: There are bilateral crackles on both lung marie with decreased breath sounds significantly in the right lower lobe. No wheezes at this time. Cardiovascular: Normal heart sounds S1 and S2 with no associated murmurs Abdomen: Abdomen nondistended, there is no pain to palpation in any of the abdominal quadrants, no palpable masses. There is anasarca with abdominal edema. Extremities: There is severe bilateral peripheral edema extending to both hips, 3+ pitting edema. Peripheral Pulses: 3+ Radial (R). 3+ Radial (L). 3+ Dorsalis pedis (R). 3+ Dorsalis pedis(L) Skin: No rashes or pruritus, there is no sacral edema present at this time. Neurological: Patient seems disoriented and not providing coherent story. laboratory and microbiology Laboratory Tests 09/25/24 07:07 Test 09/25/24 07:07 Range/Units Serum Glucose 68 L 74-106 mg/dL Microbiology Date/Time Source Procedure Growth Status 09/24/24 15:30 Pleural Fluid Gram Stain - Final Resulted 09/24/24 15:30 Pleural Fluid Aerobic Culture - Preliminary Resulted 09/24/24 01:45 Voided Urine Urine Culture - Preliminary Resulted 09/23/24 14:43 Blood Blood Culture - Preliminary NO GROWTH AFTER 24 HOURS OF INCUBATION. Resulted Problem List/Assessment/Plan Problem List/Assessment/Plan Assessment/Plan Acute metabolic encephalopathy likely in the setting of sepsis -Ammonia was elevated at 33 -Continue lactulose 30cc daily -Correct underlying infection, currently on IV Meropenem Sepsis due to UTI due to multi drug resistant microorganism -daughter states that received a call from her PCP regarding urine culture showing a multidrug resistant microorganism requiring IV antibiotic -Urine cultures as outpatient showed E.coli ESBL -Ordered UA, Urine cultures -Continue meropenem -Prelim cultures showing no growth so far History of AFib, on Xarelto at home -therapeutic Lovenox b.i.d., currently holding -ordered serum BNP, came back at 995 -ordered echocardiogram, pending -Continue furosemide 40mg IV BID Acute on chronic microcytic hypochromic anemia -ordered stool occult blood -holding Lovenox -Ordered iron panel and ferritin -ordered CT abdomen pelvis which is showing moderate right-sided pleural effusion and small left-sided pleural effusion associated with anasarca [place], hemodynamically mediated/VMN on possible CKD stage III Hyperkalemia due to above, now improved -renal USG: No hydronephrosis or other renal abnormality demonstrated Hyperbilirubinemia Hypoalbuminemia -ordered liver ultrasound which showed no sonographic abnormalities in the right upper quadrant -monitor Morbid obesity -primary counselor on lifestyle modifications and diet We have extensive discussion of >40min regarding patients care and plan Goals of care discussed with the patient and daughter at bedside for >25min, FULL CODE Plan discussed with Dr. Weems Plan discussed with: Patient, Daughter, Other My Orders My Orders Orders - JAIDEN IRCE Procedure Category Date Status Time Levothyroxine Tablet PHA 09/26/24 In Process (Synthroid Tablet) 06:00 Pt Request For Service PT 09/25/24 Logged 12:49 *Tele Psych Consult CONS 09/25/24 Transmitted 13:33 JAIDEN RICE RESIDENT Sep 25, 2024 13:55
--- NOTE | 2024-09-25 18:07 | DVHINCON2 ---
Date of Service if different f: Sep 25, 2024 Consultation ([facility]) Consulting Physician: NINA LANDON MD Labs Laboratory Tests Test 09/23/24 14:43 09/23/24 15:45 09/23/24 18:25 09/23/24 23:21 Lactic Acid Level 1.8 mmol/L (0.4-2.0) Tear Drop Cells Few Troponin I High Sensitivity 12 ng/L (</=34) Schistocytes Few Test 09/24/24 01:45 09/24/24 06:52 09/24/24 08:15 09/24/24 08:30 Urine Color Yellow (Yellow) Urine Clarity Clear (Clear) Urine pH 5.5 (5.0-9.0) Urine Specific [place] 1.035 (1.001-1.035) Urine Protein Trace (Negative) Urine Ketones Negative (Negative) Urine Blood 1+ /uL (Negative) Urine Nitrite Negative (Negative) Urine Bilirubin Negative (Negative) Urine Urobilinogen Normal mg/dL (Negative) Urine Leukocyte Esterase Negative /uL (Negative) Urine RBC 29 /hpf (0 - 4) Urine Microscopic WBC < 1 /HPF (0-5) Urine Squamous Epithelial Cells Few /hpf (<5) Urine Calcium Oxalate Crystals Few (None Seen) Urine Bacteria None seen /hpf (None Seen) Urine Glucose Normal mg/dL (Normal) Differential Total Cells Counted 100.0 (100) Neutrophils % (Manual) 80 (37.0-80.0) Band Neutrophils % (Manual) 0 Lymphocytes % (Manual) 11 (10.0-50.0) Monocytes % (Manual) 9 (0-12) Eosinophils % (Manual) 0 (0-7) Basophils % (Manual) 0 (0.0-2.0) Metamyelocytes % (manual) 0 Myelocytes % (Manual) 0 Promyelocytes % (Manual) 0 Blast Cells % (Manual) 0 Reactive Lymphocytes 0 Large Platelets Few Microcytosis Slight Stomatocytes Few Prothrombin Time 14.5 sec (9.3-11.8) Prothromb Time International Ratio 1.42 (0.9-1.15) Activated Partial Thromboplast Time 31.9 SEC (24.5-34.5) Iron Level 31 ug/dL (50-170) Total Iron Binding Capacity 354 ug/dL (250-425) Percent Iron Saturation 8.8 % (15-50) Ferritin 97.6 ng/mL (10-291) Total Bilirubin 2.0 mg/dL (0.2-1.0) Aspartate Amino Transf (AST/SGOT) 52 U/L (13-40) Alanine Aminotransferase (ALT/SGPT) 25 U/L (7-40) Alkaline Phosphatase 101 U/L (46-116) Ammonia 33 umol/L (11-32) B-Type Natriuretic Peptide 995.41 pg/mL (0-100) Total Protein 5.5 g/dL (5.7-8.2) Albumin 2.9 g/dL (3.2-4.8) Carcinoembryonic Antigen 4.39 ng/mL (<=5.0) Vitamin B12 Level 2466 pg/mL (211-911) Thyroid Stimulating Hormone (TSH) 14.28 uIU/mL (0.55-4.78) Free Thyroxine (T4) Calculated 0.77 ng/dL (0.89-1.76) Influenza Type A Antigen Negative (Negative) Influenza Type B Antigen Negative (Negative) SARS-CoV-2 Antigen (Rapid) Negative (NEGATIVE) Test 09/24/24 15:30 09/24/24 17:57 09/24/24 18:40 09/25/24 07:07 Body Fluid Source Pleural fluid Body Fluid pH 8.0 Body Fluid WBC (Manual) 290 CUMM (0-200) Body Fluid RBC (Manual) 93 CUMM (0-2000) Body Fluid Mononuclear Cells 25 % Body Fluid Polymorphonuclear Cells 75 % (0-25) Body Fluid Glucose 88 mg/dL (.) Body Fluid Total Protein 1.9 g/dL (.) Body Fluid Lactate Dehydrogenase 110 IU/L (.) White Blood Count 5.3 10^3/uL (4.4-10.8) Red Blood Count 3.66 10^6/uL (4.0-5.20) Hemoglobin 8.6 g/dL (12.2-16.2) Hematocrit 30.2 % (36.0-46.0) Mean Corpuscular Volume 82.6 fL (80.0-100.0) Mean Corpuscular Hemoglobin 23.5 pg (28.0-32.0) Mean Corpuscular Hemoglobin Concent 28.5 g/dL (32.0-36.0) Red Cell Distribution Width 31.9 % (11.8-14.3) Platelet Count 215 10^3/uL (140-450) Mean Platelet Volume 6.6 fL (6.9-10.8) Neutrophils (%) (Auto) 78.1 % (37.0-80.0) Lymphocytes (%) (Auto) 8.7 % (10.0-50.0) Monocytes (%) (Auto) 11.1 % (0.0-12.0) Eosinophils (%) (Auto) 0.7 % (0.0-7.0) Basophils (%) (Auto) 1.4 % (0.0-2.0) Neutrophils # (Auto) 4.1 10 ^3/uL (1.6-8.6) Lymphocytes # (Auto) 0.5 10 ^3/uL (0.4-5.4) Monocytes # (Auto) 0.6 10 ^3/uL (0-1.3) Eosinophils # (Auto) 0 10 ^3/uL (0-0.8) Basophils # (Auto) 0.1 10 ^3/uL (0-0.2) Nucleated Red Blood Cells 0.6 % Platelet Estimate Adequate Hypochromasia (manual) Moderate Anisocytosis (manual) Slight Target Cells Moderate Sodium Level 140 mmol/L (136-145) Potassium Level 4.6 mmol/L (3.5-5.1) Chloride Level 104 mmol/L (98-107) Carbon Dioxide Level 28 mmol/L (20-31) Anion Gap 8 (5-15) Blood Urea Nitrogen 21 mg/dL (9-23) Creatinine 1.37 mg/dL (0.550-1.02) Glomerular Filtration Rate Calc 40 mL/min (>90) BUN/Creatinine Ratio 15.3 (10.0-20.0) Serum Glucose 68 mg/dL (74-106) Calcium Level 9.3 mg/dL (8.7-10.4) Microbiology Date/Time Source Procedure Growth Status 09/24/24 15:30 Pleural Fluid Gram Stain - Final Resulted 09/24/24 15:30 Pleural Fluid Aerobic Culture - Preliminary Resulted 09/24/24 01:45 Voided Urine Urine Culture - Preliminary Resulted 09/23/24 14:43 Blood Blood Culture - Preliminary NO GROWTH AFTER 48 HOURS OF INCUBATION. Resulted Appetite: Fair Appearance: Stated age, Groomed Psychomotor activity: Agitated Behavioral: Uncooperative, Impulsive Eye contact: Limited Speech: Pressured, Confused Affect: Mood Congruent Mood: Depressed, Dysphoric Thought processes: Preservative Suicidal ideations: Present (passive) Homicidal ideations: Absent Orientation: Person, Place, Confused Memory intact: Poor Intellect: Marginal Abstractability: [place] Concentration: Limited Attention: Limited Judgement: Limited Insight: Limited Vitals Vital Signs Date Time Temp Pulse Resp B/P (MAP) Pulse Ox O2 Delivery O2 Flow Rate FiO2 09/25/24 16:45 97.3 95 18 93/47 (62) 93 97.3 09/25/24 08:00 Nasal Cannula* 2 28 Current medications Current Medications Medications Dose Ordered Sig/Rj Route Start Time Stop Time Status Last Admin Dose Admin Acetaminophen 325 mg Q4HP PRN PO 09/23/24 23:00 09/24/24 20:13 325 MG Enoxaparin Sodium 110 mg Q12HR SC 09/24/24 10:00 Hold Lactulose 30 ml DAILY PO 09/24/24 16:00 09/25/24 10:39 30 ML Meropenem 50 ml @ 17 mls/hr Q12HR IV 09/24/24 12:30 09/25/24 10:39 17 MLS/HR Levothyroxine Sodium 75 mcg QAM@0600 PO 09/26/24 06:00 Enoxaparin Sodium 40 mg DAILY SC 09/26/24 10:00 UNV Treatment plan discussed: Family Medication adjusted: Yes Diagnosis: unspecified mood disorder, delirium r/o dementia Plan : patient reports suicidal thoughts, no plan reported but depressed and tearful on exam Recommend 1:1 sitter for safety and re-evaluation Recommend zoloft 25mg, 1 tab po daily for mood History of Present Illness Reason for Consult : per report, asking for family that have HPI : This is 79-year-old female presents here for evaluation of resistant UTI and treatment. Patient was evaluated via telepsychiatry with family at bedside. Patient was labile on exam. She had periods of being calm while son fed her snacks and then yelling and crying that she wants to and be with Lisa. Per family, daughter, Lisa one year ago via accident and patient is still grieving. Family does report frequent UTI and this being here usually behavior with UTIs. She reports admission here due to fall and not UTI. per family, pt did have a fall and behavior also changed with fall, she is more confused and trouble with remembering. She could not recall current date. Patient reports mood as "not very good" at times. She reports feeling depressed and was tearful on exam. She reports thoughts to and go be with daughter. She did not report any plan or intent but also replies "who knows." she refused to elaborate. Family denies reports of suicidal ideation in the past. She denies homicidal thoughts. She denies auditory/visual hallucinations or paranoid thoughts. She did not answer about sleeping pattern. Appetite is intact per family. Past Psychiatric History : Per family, no hx of psych admissions, holds or suicide attempts. She did seek therapy after daughter's passing but no current outpatient follow up. Family denies trials of psychotropic medications in the past. Past Medical History : family denies Social History : She lives with family. No known family history. No known substance use history. ZITA SANTIAGO DNP Sep 25, 2024 18:07
[2024-09-25] MEDS: SODIUM CHLORIDE 0.9% 1,000 ML IV ONE (21:23)
[2024-09-26] VITALS (8 sets, daily range): BP systolic 93–115; BP diastolic 49–99; PULSE 72–125; RESP 16–20; TEMP 97.4–98.6; O2SAT 88–99
[2024-09-26] MEDS: LEVOTHYROXINE SODIUM 25 MCG TAB PO SCH (05:35)
[2024-09-26 08:07] LABS: AFP Serum Tumor Marker 1.8 ng/mL (0.0-9.2); Cancer Antigen (CA) 125 57.1 U/mL (0.0-38.1); Cancer Antigen (CA) 15-3 31.5 U/mL (0.0-25.0); Carbohydrate Antigen 19-9 22 U/mL (0-35)
[2024-09-26] MEDS ORDERED: ENOXAPARIN SOD 40 MG/0.4 ML SYRINGE SC SCH (10:00)
--- NOTE | 2024-09-26 13:19 | DVHPN2 ---
Subjective The patient is seen and examined at bedside. Complain of severe pain. Patient had multiple wounds and just had bandage and dressing change Reviewed: Care Plan, H&P, Labs, Medications, Previous Orders, Radiology Changes from previous H/P or p: No Changes Eyes: No Pain, No Vision change, No Conjunctivae inflammation, No Eyelid inflammation, No Other, No Redness ENT: No Ear pain, No Ear discharge, No Nose pain, No Nose discharge, No Nose congestion, No Mouth pain, No Mouth swelling, No Throat pain, No Throat swelling, No Other Cardiovascular: No Chest Pain; Palpitations; No Orthopnea, No Paroxysmal Noc. Dyspnea, No Edema, No Lt Headedness, No Other Respiratory: No Cough, No Dry; Shortness of breath; No SOB with excertion, No Wheezing, No Hemoptysis, No Pleuritic Pain, No Sputum, No Other Gastrointestinal: Nausea, Vomiting; No Abdominal Pain; Diarrhea; No Constipation, No Melena, No Hematochezia, No Other Genitourinary: No Dysuria, No Frequency, No Incontinence, No Hematuria, No Retention, No Other Musculoskeletal: No other, No neck pain, No shoulder pain, No arm pain, No back pain, No hand pain, No leg pain, No foot pain Skin: No Rash, No Lesions, No Jaundice, No Bruising, No Other Objective Vitals Vital Signs Date Time Temp Pulse Resp B/P (MAP) Pulse Ox O2 Delivery O2 Flow Rate FiO2 09/26/24 08:00 81 18 97 Nasal Cannula* 2 28 09/26/24 05:00 97.7 102/61 (75) 97.7 Intake/Output Intake and Output 09/26/24 07:00 Intake Total 621 ml Output Total 375 ml Balance 246 ml Intake Oral 504 ml IV Total 117 ml Output Urine Total 375 ml Medications Current Medications Medications Dose Ordered Sig/Rj Route Start Time Stop Time Status Last Admin Dose Admin Acetaminophen 325 mg Q4HP PRN PO 09/23/24 23:00 09/26/24 10:33 325 MG Enoxaparin Sodium 110 mg Q12HR SC 09/24/24 10:00 Hold Lactulose 30 ml DAILY PO 09/24/24 16:00 09/25/24 10:39 30 ML Meropenem 50 ml @ 17 mls/hr Q12HR IV 09/24/24 12:30 09/26/24 10:23 17 MLS/HR Levothyroxine Sodium 75 mcg QAM@0600 PO 09/26/24 06:00 Laboratory Results Laboratory Tests 09/25/24 07:07 Urinalysis Test 09/24/24 01:45 Urine Color Yellow (Yellow) Urine Clarity Clear (Clear) Urine pH 5.5 (5.0-9.0) Urine Specific [place] 1.035 (1.001-1.035) Urine Protein Trace (Negative) H Urine Ketones Negative (Negative) Urine Blood 1+ /uL (Negative) H Urine Nitrite Negative (Negative) Urine Bilirubin Negative (Negative) Urine Urobilinogen Normal mg/dL (Negative) Urine Leukocyte Esterase Negative /uL (Negative) Urine RBC 29 /hpf (0 - 4) Urine Microscopic WBC < 1 /HPF (0-5) Urine Squamous Epithelial Cells Few /hpf (<5) Urine Calcium Oxalate Crystals Few (None Seen) Urine Bacteria None seen /hpf (None Seen) Urine Glucose Normal mg/dL (Normal) Microbiology Microbiology Date/Time Source Procedure Growth Status 09/24/24 15:30 Pleural Fluid Gram Stain - Final Resulted 09/24/24 15:30 Pleural Fluid Aerobic Culture - Preliminary Resulted 09/24/24 01:45 Voided Urine Urine Culture - Final Complete 09/23/24 14:43 Blood Blood Culture - Preliminary NO GROWTH AFTER 48 HOURS OF INCUBATION. Resulted Assessment/Plan Assessment/Plan Acute metabolic encephalopathy likely in the setting of sepsis -Ammonia was elevated at 33 -Continue lactulose 30cc daily -Correct underlying infection, currently on IV Meropenem Sepsis due to UTI due to multi drug resistant microorganism -daughter states that received a call from her PCP regarding urine culture showing a multidrug resistant microorganism requiring IV antibiotic -Urine cultures as outpatient showed E.coli ESBL -Ordered UA, Urine cultures -Continue meropenem -Prelim cultures showing no growth so far History of AFib, on Xarelto at home -therapeutic Lovenox b.i.d., currently holding -ordered serum BNP, came back at 995 -ordered echocardiogram, pending -Continue furosemide 40mg IV BID Acute on chronic microcytic hypochromic anemia -ordered stool occult blood -holding Lovenox -Ordered iron panel and ferritin -ordered CT abdomen pelvis which is showing moderate right-sided pleural effusion and small left-sided pleural effusion associated with anasarca [place], hemodynamically mediated/VMN on possible CKD stage III Hyperkalemia due to above, now improved -renal USG: No hydronephrosis or other renal abnormality demonstrated Hyperbilirubinemia Hypoalbuminemia -ordered liver ultrasound which showed no sonographic abnormalities in the right upper quadrant -monitor Morbid obesity -scholarship counselor on lifestyle modifications and diet Severe pain Agree with morphine and [place] today. Severe protein calorie malnutrition Recommend supplement such as boost, patient declined. Anxiety We will give Ativan 1 mg IV q.4 PRN for anxious This medical document was created using an electronic medical record system with [employer] direct computerized dictation system. Although this document has been carefully reviewed, there may still be some phonetic and typographical errors. These areas are purely typographical due to imperfections of the software programs, and do not reflect any compromise in the patient's medical care. Plan discussed with: Patient, Daughter, Son Date of Service: Sep 26, 2024 Billing Provider: EZEKIEL ROGERS MD Common Visit Codes: [id number] INP/OBS CARE(HIGH) EZEKIEL ROGERS MD Sep 26, 2024 13:19
[2024-09-26] MEDS: SERTRALINE HCL 50 MG TAB PO SCH (16:05)
[2024-09-26] MEDS: LORazepam 2MG/ML-1ML VIAL IV PRN (16:05)
[2024-09-26 19:06] LABS: CA 27.29 37.4 U/mL (0.0-38.6)
[2024-09-27] VITALS (9 sets, daily range): BP systolic 100–124; BP diastolic 42–104; PULSE 86–115; RESP 15–20; TEMP 97.2–97.8; O2SAT 92–100
[2024-09-27 06:43] LABS: Basophils # (auto) 0 10 ^3/uL (0-0.2); Basophils % (auto) 0.8 % (0.0-2.0); Eosinophils # (auto) 0 10 ^3/uL (0-0.8); Lymphocytes # (auto) 0.5 10 ^3/uL (0.4-5.4); Mean Corpuscular Hemoglobin 23.8 pg (28.0-32.0); Monocytes # (auto) 0.8 10 ^3/uL (0-1.3); Neutrophils # (auto) 4.1 10 ^3/uL (1.6-8.6); Neutrophils % (auto) 74.3 % (37.0-80.0); Nucleated Red Blood Cells % 0.4 %; White Blood Cell 5.5 10^3/uL (4.4-10.8)
[2024-09-27 06:44] LABS: Eosinophils % (auto) 0.8 % (0.0-7.0); Hematocrit 30.1 % (36.0-46.0); Hemoglobin 8.7 g/dL (12.2-16.2); Lymphocytes % (auto) 9.5 % (10.0-50.0); Mean Corpuscular Hgb Conc. 28.8 g/dL (32.0-36.0); Mean Corpuscular Volume 82.6 fL (80.0-100.0); Monocytes % (auto) 14.6 % (0.0-12.0); Platelet Count (auto) 196 10^3/uL (140-450); Red Blood Cells 3.65 10^6/uL (4.0-5.20); Red Cell Distribution Width 32.6 % (11.8-14.3)
[2024-09-27 06:49] LABS: Anion Gap 6 (5-15); Carbon Dioxide 28 mmol/L (20-31); Chloride 104 mmol/L (98-107); Potassium 4.8 mmol/L (3.5-5.1); Sodium 138 mmol/L (136-145)
[2024-09-27 06:50] LABS: Calcium 9.6 mg/dL (8.7-10.4)
[2024-09-27 06:55] LABS: BUN/Creatinine Ratio 15.7 (10.0-20.0); Blood Urea Nitrogen 20 mg/dL (9-23); Glucose 90 mg/dL (74-106)
--- NOTE | 2024-09-27 13:59 | DVHPNRES ---
Progress Note Date Seen: Sep 27, 2024 Resident Creating Document: JAIDEN RICE RESIDENT Has the PT tested + for MRSA If YES, has PT been informed?: No Medical Necessity Reason Pt with a Central, PICC or Fol: No Subjective Review of Systems This is a 79-year-old female with unknown past medical history, patient was brought by ambulance due to patient experiencing increasing confusion over the last few days. Per patient's daughter, patient was being treated for UTI and was taking oral antibiotics however they received a call from patient's PCP earlier today on 09/23/2024 stating that the patient has a resistant UTI not responding to oral antibiotics and requested to low to the nearest ER for IV antibiotic therapy. Upon admission, the patient was alert but disoriented unable to provide accurate past medical history, social or surgical history. Upon my examination, patient was alert and disoriented. Patient was having severe bilateral peripheral edema extending to bilateral hips, 3+ pitting edema and anasarca even involving the abdomen. Initial chest x-ray showed mild pulmonary congestion, CT scan of the head was performed and came back unremarkable. We performed an abdominal CT scan which showed moderate right- sided pleural effusion and small left-sided pleural effusion associated with anasarca. Stool bacterial culture, blood culture and urine culture were ordered. Echocardiogram was ordered as well. Patient was admitted for further assessment and management. Patient seen and examined at bedside. Patient was sleepy this morning, but alert, slightly disoriented as previously. Tele psych was consulted for odd thoughts which recommended to start the patient on sertraline 25 mg daily. Patient mental status still same as before, for sure periods of time patient is alert and responding to questions pertinently but then start fluctuating or talking about random topics. We will continue IV meropenem for UTI due to E coli ESBL. We will hold any anticoagulants or antiplatelet agents since the patient hemoglobin has been chronically low. Patient we will be scheduled for inferior vena cava filter placement tomorrow. ROS Constitutional: Denies weight loss, fever and chills. HEENT: Denies changes in vision and hearing. Respiratory: Denies shortness of breath and cough Cardiovascular: Denies chest discomfort or palpitations GI: Denies abdominal pain, nausea, vomiting and diarrhea. : Denies dysuria and urinary frequency. Musculoskeletal: Denies myalgias and joint pain Skin: Denies rash and pruritus. Neurological: Denies dizziness, headache, vision or hearing problems Objective vital signs Vital Sign Date Time Temp Pulse Resp B/P (MAP) Pulse Ox O2 Delivery O2 Flow Rate FiO2 09/27/24 09:00 97.5 106 15 103/66 (78) 99 97.5 09/26/24 20:00 Nasal Cannula* 2 28 Total Intake and Output 09/26/24 09/26/24 09/27/24 15:00 23:00 07:00 Intake Total 558 ml 820 ml 350 ml Output Total 300 ml 120 ml Balance 558 ml 520 ml 230 ml medications Current Medications Medications Dose Ordered Sig/Rj Route Start Time Stop Time Status Last Admin Dose Admin Acetaminophen 325 mg Q4HP PRN PO 09/23/24 23:00 09/26/24 15:07 325 MG Enoxaparin Sodium 110 mg Q12HR SC 09/24/24 10:00 Hold Lactulose 30 ml DAILY PO 09/24/24 16:00 09/25/24 10:39 30 ML Meropenem 50 ml @ 17 mls/hr Q12HR IV 09/24/24 12:30 09/27/24 10:31 17 MLS/HR Levothyroxine Sodium 75 mcg QAM@0600 PO 09/26/24 06:00 09/27/24 05:22 75 MCG Lorazepam 0.5 mg Q4HPRN PRN IV 09/26/24 15:00 09/26/24 20:34 0.5 MG Sertraline HCl 25 mg DAILY PO 09/26/24 15:29 09/27/24 10:36 25 MG Examination Physical Examination General: Patient alert but disoriented. HEENT: Normocephalic, atraumatic, moist mucous membranes Respiratory/pulmonary: There are bilateral crackles on both lung marie with decreased breath sounds significantly in the right lower lobe. No wheezes at this time. Cardiovascular: Normal heart sounds S1 and S2 with no associated murmurs Abdomen: Abdomen nondistended, there is no pain to palpation in any of the abdominal quadrants, no palpable masses. There is anasarca with abdominal edema. Extremities: There is severe bilateral peripheral edema extending to both hips, 3+ pitting edema. Peripheral Pulses: 3+ Radial (R). 3+ Radial (L). 3+ Dorsalis pedis (R). 3+ Dorsalis pedis(L) Skin: No rashes or pruritus, there is no sacral edema present at this time. Neurological: Patient seems disoriented and not providing coherent story. laboratory and microbiology Laboratory Tests 09/27/24 06:12 Test 09/27/24 06:12 Range/Units Serum Glucose 90 74-106 mg/dL Microbiology Date/Time Source Procedure Growth Status 09/24/24 15:30 Pleural Fluid Gram Stain - Final Resulted 09/24/24 15:30 Pleural Fluid Aerobic Culture - Preliminary Resulted 09/24/24 01:45 Voided Urine Urine Culture - Final Complete 09/23/24 14:43 Blood Blood Culture - Preliminary NO GROWTH AFTER 72 HOURS OF INCUBATION. Resulted Problem List/Assessment/Plan Problem List/Assessment/Plan Assessment/Plan Acute metabolic encephalopathy likely in the setting of sepsis -Ammonia was elevated at 33 -Continue lactulose 30cc daily -Correct underlying infection, currently on IV Meropenem Sepsis due to UTI due to multi drug resistant microorganism -daughter states that received a call from her PCP regarding urine culture showing a multidrug resistant microorganism requiring IV antibiotic -Urine cultures as outpatient showed E.coli ESBL -Ordered UA, Urine cultures, both came back showing no evidence of growth. -Continue meropenem -urine culture showing no growth at more than 48 hours. History of AFib, on Xarelto at home -therapeutic Lovenox b.i.d., currently holding -ordered serum BNP, came back at 995 -ordered echocardiogram, pending -hold Lasix at this time due to low blood pressure. -IR consulted for inferior vena cava filter placement, tomorrow Acute on chronic microcytic hypochromic anemia -ordered stool occult blood -holding Lovenox -Ordered iron panel and ferritin -ordered CT abdomen pelvis which is showing moderate right-sided pleural effusion and small left-sided pleural effusion associated with anasarca -IR consulted for inferior vena cava filter placement, tomorrow -CA-125 came back elevated [place], hemodynamically mediated/VMN on possible CKD stage III Hyperkalemia due to above, now improved -renal USG: No hydronephrosis or other renal abnormality demonstrated Hyperbilirubinemia Hypoalbuminemia -ordered liver ultrasound which showed no sonographic abnormalities in the right upper quadrant -monitor Morbid obesity -certified credit counselor on lifestyle modifications and diet We have extensive discussion of >30min regarding patients care and plan Goals of care discussed with the patient and daughter at bedside for >25min, FULL CODE Plan discussed with Dr. Santiago Plan discussed with: Patient, Daughter, Other Dietary Evaluation Review Comments: 1) MVI 1 tab daily 2) Continue liberalizing diet 3) ensure enlive 240ml BID & sj 1 pk BID(ordered per protocol) 4) Continue current plan of care Expected Outcomes/Goals: PO intake meet 75% estimated needs Fu 3-5 days Date of Service: Sep 27, 2024 Billing Provider: EZEKIEL SANTIAGO MD Common Visit Codes: [id number] INP/OBS CARE(HIGH) JAIDEN RICE RESIDENT Sep 27, 2024 13:59 EZEKIEL SANTIAGO MD Sep 28, 2024 11:05
[2024-09-28] VITALS (12 sets, daily range): BP systolic 92–140; BP diastolic 54–95; PULSE 62–113; RESP 12–20; TEMP 96.3–98; O2SAT 85–99
[2024-09-28] MEDS: DEXTROSE 50% SYRINGE 50 ML IV ONE (03:05)
[2024-09-28] MEDS: DEXTROSE (25%) 10 ML SYRG IV ONE (03:23)
[2024-09-28 07:36] LABS: INR 1.58 (0.9-1.15); Partial Thromboplastin Time 30.2 SEC (24.5-34.5)
--- NOTE | 2024-09-28 10:09 | DVHPNRES ---
Progress Note Date Seen: Sep 28, 2024 Resident Creating Document: JAIDEN RICE RESIDENT Has the PT tested + for MRSA If YES, has PT been informed?: No Medical Necessity Reason Pt with a Central, PICC or Fol: No Subjective Review of Systems This is a 79-year-old female with unknown past medical history, patient was brought by ambulance due to patient experiencing increasing confusion over the last few days. Per patient's daughter, patient was being treated for UTI and was taking oral antibiotics however they received a call from patient's PCP earlier today on 09/23/2024 stating that the patient has a resistant UTI not responding to oral antibiotics and requested to low to the nearest ER for IV antibiotic therapy. Upon admission, the patient was alert but disoriented unable to provide accurate past medical history, social or surgical history. Upon my examination, patient was alert and disoriented. Patient was having severe bilateral peripheral edema extending to bilateral hips, 3+ pitting edema and anasarca even involving the abdomen. Initial chest x-ray showed mild pulmonary congestion, CT scan of the head was performed and came back unremarkable. We performed an abdominal CT scan which showed moderate right- sided pleural effusion and small left-sided pleural effusion associated with anasarca. Stool bacterial culture, blood culture and urine culture were ordered. Echocardiogram was ordered as well. Patient was admitted for further assessment and management. Patient seen and examined at bedside. Patient was sleepy this morning not responding to many questions at this time. Patient looks tired and weak but overall is hemodynamically stable. Tele psych saw the patient and recommended starting the patient on sertraline 25 mg daily. Spoke with family for 20 minutes regarding patient care and plan of inferior vena cava filter placement today. Patient will go to the OR for IVC filter placement today in the afternoon. CA 125 came back slightly elevated but other tumor markers came back negative. We will continue IV meropenem for UTI due to E coli ESBL. Patient needs to do physical therapy. ROS (patient has slightly underlying dementia) Constitutional: Denies weight loss, fever and chills. HEENT: Denies changes in vision and hearing. Respiratory: Denies shortness of breath and cough Cardiovascular: Denies chest discomfort or palpitations GI: Denies abdominal pain, nausea, vomiting and diarrhea. : Denies dysuria and urinary frequency. Musculoskeletal: Denies myalgias and joint pain Skin: Denies rash and pruritus. Neurological: Denies dizziness, headache, vision or hearing problems Objective vital signs Vital Sign Date Time Temp Pulse Resp B/P (MAP) Pulse Ox O2 Delivery O2 Flow Rate FiO2 09/28/24 08:39 96.4 81 20 92/67 (75) 96 96.4 09/27/24 20:00 Nasal Cannula* 1 24 Total Intake and Output 09/27/24 09/27/24 09/28/24 15:00 23:00 07:00 Intake Total 50 ml 117 ml 208 ml Output Total 150 ml 300 ml Balance 50 ml -33 ml -92 ml medications Current Medications Medications Dose Ordered Sig/Rj Route Start Time Stop Time Status Last Admin Dose Admin Acetaminophen 325 mg Q4HP PRN PO 09/23/24 23:00 09/26/24 15:07 325 MG Enoxaparin Sodium 110 mg Q12HR SC 09/24/24 10:00 Hold Lactulose 30 ml DAILY PO 09/24/24 16:00 09/25/24 10:39 30 ML Meropenem 50 ml @ 17 mls/hr Q12HR IV 09/24/24 12:30 09/27/24 21:13 17 MLS/HR Levothyroxine Sodium 75 mcg QAM@0600 PO 09/26/24 06:00 09/27/24 05:22 75 MCG Lorazepam 0.5 mg Q4HPRN PRN IV 09/26/24 15:00 09/26/24 20:34 0.5 MG Sertraline HCl 25 mg DAILY PO 09/26/24 15:29 09/27/24 10:36 25 MG Examination Physical Examination General: Patient alert but disoriented. HEENT: Normocephalic, atraumatic, moist mucous membranes Respiratory/pulmonary: There are bilateral crackles on both lung marie with decreased breath sounds significantly in the right lower lobe. No wheezes at this time. Cardiovascular: Normal heart sounds S1 and S2 with no associated murmurs Abdomen: Abdomen nondistended, there is no pain to palpation in any of the abdominal quadrants, no palpable masses. There is anasarca with abdominal edema. Extremities: There is severe bilateral peripheral edema extending to both hips, 3+ pitting edema. Peripheral Pulses: 3+ Radial (R). 3+ Radial (L). 3+ Dorsalis pedis (R). 3+ Dorsalis pedis(L) Skin: No rashes or pruritus, there is no sacral edema present at this time. Neurological: Patient seems disoriented and not providing coherent story. laboratory and microbiology Laboratory Tests 09/27/24 06:12 Test 09/27/24 06:12 Range/Units Serum Glucose 90 74-106 mg/dL Microbiology Date/Time Source Procedure Growth Status 09/24/24 15:30 Pleural Fluid Gram Stain - Final Resulted 09/24/24 15:30 Pleural Fluid Aerobic Culture - Preliminary Resulted 09/24/24 01:45 Voided Urine Urine Culture - Final Complete 09/23/24 14:43 Blood Blood Culture - Preliminary NO GROWTH AFTER 72 HOURS OF INCUBATION. Resulted Problem List/Assessment/Plan Problem List/Assessment/Plan Assessment/Plan Acute metabolic encephalopathy likely in the setting of sepsis -Ammonia was elevated at 33 -Continue lactulose 30cc daily -Correct underlying infection, currently on IV Meropenem Sepsis due to UTI due to multi drug resistant microorganism -daughter states that received a call from her PCP regarding urine culture showing a multidrug resistant microorganism requiring IV antibiotic -Urine cultures as outpatient showed E.coli ESBL -Ordered UA, Urine cultures, both came back showing no evidence of growth. -Continue meropenem -urine culture showing no growth at more than 48 hours. History of AFib, on Xarelto at home -therapeutic Lovenox b.i.d., currently holding -ordered serum BNP, came back at 995 -ordered echocardiogram, pending -Start furosemide 20mg daily po -IR consulted for inferior vena cava filter placement which will be done today Acute on chronic microcytic hypochromic anemia -ordered stool occult blood -holding Lovenox -Ordered iron panel and ferritin -ordered CT abdomen pelvis which is showing moderate right-sided pleural effusion and small left-sided pleural effusion associated with anasarca -IR consulted for inferior vena cava filter placement today 09/28/24 -CA-125 came back elevated [place], hemodynamically mediated/VMN on possible CKD stage III Hyperkalemia due to above, now improved -renal USG: No hydronephrosis or other renal abnormality demonstrated Hyperbilirubinemia Hypoalbuminemia -ordered liver ultrasound which showed no sonographic abnormalities in the right upper quadrant -monitor Morbid obesity -counsellors on lifestyle modifications and diet We have extensive discussion of >30min regarding patients care and plan Goals of care discussed with the patient and daughter at bedside for >25min, FULL CODE Plan discussed with Dr. Carias Plan discussed with: Patient, Daughter, Other My Orders My Orders Orders - JAIDEN RICE Procedure Category Date Status Time Complete Blood Count LAB 09/28/24 Logged 04:00 Basic Metabolic Panel LAB 09/28/24 Logged 04:00 Dietary Evaluation Review Comments: 1) MVI 1 tab daily 2) Continue liberalizing diet 3) ensure enlive 240ml BID & sj 1 pk BID(ordered per protocol) 4) Continue current plan of care Expected Outcomes/Goals: PO intake meet 75% estimated needs Fu 3-5 days Date of Service: Sep 28, 2024 Billing Provider: ZOHAIB CARIAS MD Common Visit Codes: [id number] INP/OBS CARE(MOD) JAIDEN RICE RESIDENT Sep 28, 2024 10:09 ZOHAIB CARIAS MD Sep 28, 2024 16:50
[2024-09-28] MEDS: FUROSEMIDE 20 MG TAB PO ONE (10:30)
--- NOTE | 2024-09-28 11:55 | ECG ---
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
[2024-09-28] MEDS: IODIXANOL 320MG/ML 100ML BTL IV ONE (12:13)
[2024-09-28] MEDS: fentaNYL CITRATE 100 MCG/2 ML VL ONE (13:34)
[2024-09-28] MEDS: LIDOCAINE 2%HCL (LOCAL ANESTH.) INJ 20ML MDV ONE (13:35)
[2024-09-28] MEDS: MIDAZOLAM HCL 2MG/2ML 2ml VIAL (1mg/ml) ONE (13:35)
--- NOTE | 2024-09-28 14:48 | DVH ---
XY INFERIOR VENA CAVA FILTER, HISTORY: 79 F with history of A. Fib on anticoagulation and chronic anemia with high risk for develop ing DVT and complications with bleeding. Here for a prophylatic IVC filter placement so that she will be taken off anticoagulation medication. PROCEDURE: Informed consent was obtained. The patient was placed on the fluoroscopic table in supine position. The right groin was prepped with chlorhexidine which was allowed to dry and draped in the u sual sterile fashion. Time out was performed. Following administration of 1% local lidocaine, the com mon femoral vein was accessed with a micropuncture set under ultrasound guidance, and an image docume nting patency sent to PACS. A 6 Mong[place] sheath was placed into the upper iliac vein. A cavogram was pe rformed and the level of the renal veins were identified. The sheath was exchanged for a 9.6 Mong[place]ian i ntroducer sheath, and a Bard G2 Fiona IVC filter was deployed in an infrarenal location. The introdu cer sheath was removed and the venotomy closed with manual compression. Post-deployment image was obt ained. No immediate complication was identified. DAP 1130 FLUOROSCOPY TIME: 1.3 minutes. CONTRAST USED: 25 mL Isovue 300. SEDATION: Dr. Nomi James was personally responsible for the administration of moderate sedation during the procedure performed, including the use of an independent trained observer who had no other duties during the procedure. The drugs utilized were IV fentanyl and versed (see nursing log for details). The total time of supervision by the attending physician was approximately 40 minutes. FINDINGS: There is a patent single IVC visualized without intraluminal filling defect. No renal venou s anomaly is noted. Post-procedure image demonstrates good positioning of the IVC filter in an infrar enal position. IMPRESSION: Infrarenal IVC filter placement. PLAN: Consideration should be made for removal of this retrievable filter after and if medical necess ity for caval filtration is no longer present. If we in IR are unable to contact the patient in a annalee [place] fashion, please contact our office, and we will attempt to arrange for filter retrieval at the ea rliest convenience.
[2024-09-28 16:00] LABS: Hematocrit 32.4 % (36.0-46.0); Hemoglobin 9.6 g/dL (12.2-16.2); Mean Corpuscular Hemoglobin 24.2 pg (28.0-32.0); Mean Corpuscular Hgb Conc. 29.6 g/dL (32.0-36.0); Mean Corpuscular Volume 81.8 fL (80.0-100.0); Platelet Count (auto) 227 10^3/uL (140-450); Red Blood Cells 3.96 10^6/uL (4.0-5.20); White Blood Cell 7.5 10^3/uL (4.4-10.8)
[2024-09-28 16:05] LABS: Chloride 106 mmol/L (98-107); Sodium 140 mmol/L (136-145)
[2024-09-28 16:06] LABS: Anion Gap 6 (5-15); Calcium 9.6 mg/dL (8.7-10.4); Carbon Dioxide 28 mmol/L (20-31)
[2024-09-28 16:11] LABS: BUN/Creatinine Ratio 22.5 (10.0-20.0); Glucose 77 mg/dL (74-106)
[2024-09-28 16:15] LABS: Red Cell Distribution Width 33.3 % (11.8-14.3)
[2024-09-28 16:16] LABS: Blood Urea Nitrogen 25 mg/dL (9-23); Potassium 5.3 mmol/L (3.5-5.1)
[2024-09-28 16:17] LABS: Basophils % (manual) 0 (0.0-2.0); Blast Cells 0; Eosinophils % (manual) 0 (0-7); Metamyelocytes % 0; Myelocytes % 0; Promyelocytes % 0; Reactive Lymphocytes 0
[2024-09-28 17:09] LABS: Band Neutrophils % (manual) 3; Lymphocytes % (manual) 14 (10.0-50.0); Monocytes % (manual) 9 (0-12); Platelet Estimate Adequate
[2024-09-28 17:10] LABS: Anisocytosis Marked; Hypochromia Slight; Target Cell FEW; Tear Drop Cells FEW
[2024-09-29] VITALS (7 sets, daily range): BP systolic 113–135; BP diastolic 62–88; PULSE 66–102; RESP 18–19; TEMP 98.2–98.6; O2SAT 95–98
[2024-09-29] MEDS: DEXTROSE (25%) 10 ML SYRG IV ONE (02:30)
[2024-09-29] MEDS: DEXTROSE (50%) 50ML SYRG IV ONE (04:43)
--- NOTE | 2024-09-29 07:57 | DVHDSRES ---
Discharge Summary Date of Admission Resident Creating Document: JAIDEN RICE RESIDENT Sep 23, 2024 at 22:56 Date of Discharge: Sep 29, 2024 Admitting Diagnosis Urinary tract infection and altered level of consciousness Wounds: No wounds present at this time. Labs/Diagnostic Data: Laboratory Results Test 09/29/24 03:31 09/28/24 15:39 09/28/24 07:04 09/27/24 06:12 POC Glucose 57 mg/dl (70-106) White Blood Count 7.5 10^3/uL (4.4-10.8) Red Blood Count 3.96 10^6/uL (4.0-5.20) Hemoglobin 9.6 g/dL (12.2-16.2) Hematocrit 32.4 % (36.0-46.0) Mean Corpuscular Volume 81.8 fL (80.0-100.0) Mean Corpuscular Hemoglobin 24.2 pg (28.0-32.0) Mean Corpuscular Hemoglobin Concent 29.6 g/dL (32.0-36.0) Red Cell Distribution Width 33.3 % (11.8-14.3) Platelet Count 227 10^3/uL (140-450) Mean Platelet Volume 8.1 fL (6.9-10.8) Neutrophils (%) (Auto) % (37.0-80.0) Lymphocytes (%) (Auto) % (10.0-50.0) Monocytes (%) (Auto) % (0.0-12.0) Basophils (%) (Auto) % (0.0-2.0) Neutrophils # (Auto) 10 ^3/uL (1.6-8.6) Lymphocytes # (Auto) 10 ^3/uL (0.4-5.4) Monocytes # (Auto) 10 ^3/uL (0-1.3) Differential Total Cells Counted 100.0 (100) Neutrophils % (Manual) 74 (37.0-80.0) Band Neutrophils % (Manual) 3 Lymphocytes % (Manual) 14 (10.0-50.0) Monocytes % (Manual) 9 (0-12) Eosinophils % (Manual) 0 (0-7) Basophils % (Manual) 0 (0.0-2.0) Metamyelocytes % (manual) 0 Myelocytes % (Manual) 0 Promyelocytes % (Manual) 0 Blast Cells % (Manual) 0 Reactive Lymphocytes 0 Platelet Estimate Adequate Hypochromasia (manual) Slight Anisocytosis (manual) Marked Target Cells Few Tear Drop Cells Few Schistocytes Few Sodium Level 140 mmol/L (136-145) Potassium Level 5.3 mmol/L (3.5-5.1) Chloride Level 106 mmol/L (98-107) Carbon Dioxide Level 28 mmol/L (20-31) Anion Gap 6 (5-15) Blood Urea Nitrogen 25 mg/dL (9-23) Creatinine 1.11 mg/dL (0.550-1.02) Glomerular Filtration Rate Calc 51 mL/min (>90) BUN/Creatinine Ratio 22.5 (10.0-20.0) Serum Glucose 77 mg/dL (74-106) Calcium Level 9.6 mg/dL (8.7-10.4) Ammonia 36 umol/L (11-32) Prothrombin Time 16.0 sec (9.3-11.8) Prothrombin Time INR 1.58 (0.9-1.15) Activated Partial Thromboplast Time 30.2 SEC (24.5-34.5) Eosinophils (%) (Auto) 0.8 % (0.0-7.0) Eosinophils # (Auto) 0 10 ^3/uL (0-0.8) Basophils # (Auto) 0 10 ^3/uL (0-0.2) Nucleated Red Blood Cells 0.4 % Test 09/24/24 18:40 09/24/24 17:57 09/24/24 15:30 09/24/24 08:30 Tumor Marker Alpha Fetoprotein 1.8 ng/mL (0.0-9.2) CA 15-3 Antigen 31.5 U/mL (0.0-25.0) CA 19-9 Antigen 22 U/mL (0-35) CA 27.29 37.4 U/mL (0.0-38.6) CA 125 Antigen 57.1 U/mL (0.0-38.1) Body Fluid Source Pleural fluid Body Fluid pH 8.0 Body Fluid WBC (Manual) 290 CUMM (0-200) Body Fluid RBC (Manual) 93 CUMM (0-2000) Body Fluid Mononuclear Cells 25 % Body Fluid Polymorphonuclear Cells 75 % (0-25) Body Fluid Glucose 88 mg/dL (.) Body Fluid Total Protein 1.9 g/dL (.) Body Fluid Lactate Dehydrogenase 110 IU/L (.) Influenza Type A Antigen Negative (Negative) Influenza Type B Antigen Negative (Negative) SARS-CoV-2 Antigen (Rapid) Negative (NEGATIVE) Test 09/24/24 08:15 09/24/24 06:52 09/24/24 01:45 09/23/24 18:25 Large Platelets Few Microcytosis Slight Stomatocytes Few Iron Level 31 ug/dL (50-170) Total Iron Binding Capacity 354 ug/dL (250-425) Percent Iron Saturation 8.8 % (15-50) Ferritin 97.6 ng/mL (10-291) Total Bilirubin 2.0 mg/dL (0.2-1.0) Aspartate Amino Transferase (AST) 52 U/L (13-40) Alanine Aminotransferase (ALT) 25 U/L (7-40) Alkaline Phosphatase 101 U/L (46-116) B-Type Natriuretic Peptide 995.41 pg/mL (0-100) Total Protein 5.5 g/dL (5.7-8.2) Albumin 2.9 g/dL (3.2-4.8) Carcinoembryonic Antigen 4.39 ng/mL (<=5.0) Vitamin B12 Level 2466 pg/mL (211-911) Thyroid Stimulating Hormone (TSH) 14.28 uIU/mL (0.55-4.78) Free Thyroxine (T4) Calculated 0.77 ng/dL (0.89-1.76) Urine Color Yellow (Yellow) Urine Clarity Clear (Clear) Urine pH 5.5 (5.0-9.0) Urine Specific [place] 1.035 (1.001-1.035) Urine Protein Trace (Negative) Urine Ketones Negative (Negative) Urine Blood 1+ /uL (Negative) Urine Nitrite Negative (Negative) Urine Bilirubin Negative (Negative) Urine Urobilinogen Normal mg/dL (Negative) Urine Leukocyte Esterase Negative /uL (Negative) Urine RBC 29 /hpf (0 - 4) Urine Microscopic WBC < 1 /HPF (0-5) Urine Squamous Epithelial Cells Few /hpf (<5) Urine Calcium Oxalate Crystals Few (None Seen) Urine Bacteria None seen /hpf (None Seen) Urine Glucose Normal mg/dL (Normal) Troponin I High Sensitivity 12 ng/L (</=34) Test 4/16/25 14:43 Lactic Acid Level 1.8 mmol/L (0.4-2.0) Other Laboratory Tests 09/28/24 15:39 Brief Hx & Hospital Course: This is a 79-year-old female with unknown past medical history, patient was brought by ambulance due to patient experiencing increasing confusion over the last few days. Per patient's daughter, patient was being treated for UTI and was taking oral antibiotics however they received a call from patient's PCP earlier today on 09/23/2024 stating that the patient has a resistant UTI not responding to oral antibiotics and requested to low to the nearest ER for IV antibiotic therapy. Upon admission, the patient was alert but disoriented unable to provide accurate past medical history, social or surgical history. Upon my examination, patient was alert and disoriented. Patient was having severe bilateral peripheral edema extending to bilateral hips, 3+ pitting edema and anasarca even involving the abdomen. Initial chest x-ray showed mild pulmonary congestion, CT scan of the head was performed and came back unremarkable. We performed an abdominal CT scan which showed moderate right- sided pleural effusion and small left-sided pleural effusion associated with anasarca. Stool bacterial culture, blood culture and urine culture were ordered. Echocardiogram was ordered as well. The patient was started on IV meropenem for E coli ESBL. Patient seems to have an underlying degree of dementia which was acknowledged by family but they still think the patient is still more delirium and confused compared to her baseline. We did a tele psych consult for which they considered that the patient had severe depression associated with panic attacks and started the patient on sertraline 25 mg daily. Patient still seems confused which at this point looks more like dementia but has been trying to work with physical therapy. We placed a midline to be able to send the patient with IV meropenem 1 g q.8 hours for 10 additional days to SNF for IV antibiotic and physical therapy. MRI of the abdomen was unable to be performed due to difficulty and inability of patient lying completely flat. Patient might need to do an MRI of the abdomen as an outpatient in one week to rule out any possible source of malignancy. Patient and family agreed with the plan. ROS Constitutional: Denies weight loss, fever and chills. HEENT: Denies changes in vision and hearing. Respiratory: Denies shortness of breath and cough Cardiovascular: Denies chest discomfort or palpitations GI: Denies abdominal pain, nausea, vomiting and diarrhea. : Denies dysuria and urinary frequency. Musculoskeletal: Denies myalgias and joint pain Skin: Denies rash and pruritus. Neurological: Denies dizziness, headache, vision or hearing problems Physical Examination General: Patient alert but disoriented. HEENT: Normocephalic, atraumatic, moist mucous membranes Respiratory/pulmonary: There are bilateral crackles on both lung marie with decreased breath sounds significantly in the right lower lobe. No wheezes at this time. Cardiovascular: Normal heart sounds S1 and S2 with no associated murmurs Abdomen: Abdomen nondistended, there is no pain to palpation in any of the abdominal quadrants, no palpable masses. There is anasarca with abdominal edema. Extremities: There is severe bilateral peripheral edema extending to both hips, 3+ pitting edema. Peripheral Pulses: 3+ Radial (R). 3+ Radial (L). 3+ Dorsalis pedis (R). 3+ Dorsalis pedis(L) Skin: No rashes or pruritus, there is no sacral edema present at this time. Neurological: Patient seems disoriented and not providing coherent story. Consults/Reason for consult N/A Operations or Procedures CHEST RADIOGRAPH Indication: FEVER Technique: Single frontal view of the chest was obtained COMPARISON: None FINDINGS: Lines and Tubes: None Lungs: Congestion Pleura: No effusion. No pneumothorax. Cardiomediastinal contours: Unremarkable Bones: Unremarkable IMPRESSION: Congestion EXAM: CT HEAD WITHOUT CONTRAST INDICATION: ALOC TECHNIQUE: CT of the head without intravenous contrast. Radiation Dose : 1. Head: CT Dose: CTDI volume is 58 mGy. Dose-length product is 1142 mGy*cm The dose indicators for CT are the volume Computed Tomography (CT) Dose Index (CTDIvol) and the Dose Length Product (DLP), and are measured in units of mGy and mGy-cm, respectively. These indicators are not patient dose, but values generated from the CT scanner acquisition factors. The report includes radiation exposure data for exposures received during this examination. COMPARISON: None FINDINGS: There is no evidence of acute intracranial hemorrhage, extra-axial collection, mass effect, midline shift, herniation or hydrocephalus. The ventricles, sulci and cisterns are age appropriate. The martin-white differentiation is intact. Patchy periventricular and subcortical white matter hypoattenuation is nonspecific but may be related to small vessel ischemic disease. The visualized paranasal sinuses and mastoid air cells are clear. The surrounding soft tissues and osseous structures are unremarkable. IMPRESSION: 1. No acute intracranial abnormality. INDICATION: hydronephrosis TECHNIQUE: Multiple real-time sonographic images of the kidneys and bladder were obtained. COMPARISON: None FINDINGS: Right kidney measures approximately 9.2 cm in length and the left 9.1 cm. Both kidneys are within normal limits in size, contour, echogenicity, and cortical thickness. No hydronephrosis. Castillo catheter present in a non distended urinary bladder. IMPRESSION: No hydronephrosis or other renal abnormality demonstrated. PROCEDURE: ULTRASOUND GUIDED THORACENTESIS USING TEMPORARY CATHETER HISTORY: 79 Female with requiring thoracentesis. DOCUMENTATION: Informed consent was obtained and a procedural time out was performed. TECHNIQUE: Ultrasound was used to locate the right pleural fluid collection with an image archived in the PACS. The skin over the right posterior hemithorax was sterilely prepped, draped, and infiltrated with 1% lidocaine. Under real time ultrasound guidance, the right pleural space was accessed with a 19-gauge Yueh needle and connected to Vacutainers. The Yueh catheter was advanced, the needle was removed and the temporary catheter was advanced and connected to the Vacutainer. Approximately 1.05 liters of right fluid was removed. The temporary catheter was removed and sterile dressings were applied. FINDINGS: Ultrasound demonstrates a right pleural effusion. Imaging confirms the needle tip within the fluid. IMPRESSION: SUCCESSFUL ULTRASOUND GUIDED THORACENTESIS. INDICATION: ELEVATED STAR TECHNIQUE: Multiple real-time sonographic images of the abdomen were obtained. COMPARISON: None FINDINGS: Evaluation technically limited by patient body habitus. The liver is homogenous in echogenicity. The liver measures 11.8 cm. No intrahepatic biliary ductal dilatation is noted. The gallbladder wall measures 0.2 cm and is unremarkable. No gallstones or sludge is seen. The common duct measures 0.5 cm and is unremarkable. No pericholecystic fluid is noted. Negative sonographic Randall's sign. The right kidney measures 8.5 cm. No hydronephrosis. The pancreas is not well visualized due to obscuration from bowel gas. The visualized portions of the IVC and aorta are grossly unremarkable. There are bilateral pleural effusions. Bilateral pleural effusions. IMPRESSION: 1. No acute sonographic abnormality in the right upper quadrant. 2. Bilateral pleural effusions. CLINICAL INFORMATION: 79 years old, Female; rule out intraabdominal bleed. No other clinical information provided. TECHNIQUE: Axial CT images of the abdomen and pelvis were obtained without IV contrast. Coronal and sagittal reformatted images were obtained, reviewed, and stored. Evaluation of the parenchymal organs is limited without IV contrast. Evaluation of the bowel and mesentery is limited without oral contrast. All CT scans at this medical facility are performed using dose modulation techniques as appropriate to a performed exam including the following: Automated exposure control was utilized; adjustment of the MA and/or KV according to patient size; and use of iterative reconstruction technique. CTDIvol = 27.28 mGy DLP = 1447.1 mGy-cm COMPARISON: None FINDINGS: Lung bases: Moderate right pleural effusion with overlying atelectasis and/or consolidation. Small left pleural effusion with mild overlying atelectasis. Moderate cardiomegaly with small pericardial effusion. Dense coronary artery calcification. Liver: Grossly unremarkable in its noncontrast enhanced appearance. No abnormal density or focal lesion identified. Biliary: No calcified gallstones or biliary ductal dilatation. Spleen: Unremarkable. Pancreas: Atrophic pancreas. Adrenal glands: Unremarkable. No mass. Kidneys: No hydronephrosis. No renal or ureteral calculi. Aorta/Vascular: Moderate atherosclerotic calcification. No abdominal aortic aneurysm. Retroperitoneum: No lymphadenopathy. No retroperitoneal fluid collection to suggest hematoma. Bowel/mesentery: No small bowel obstruction. Appendix is visualized and appears unremarkable. Scattered colonic diverticula without adjacent inflammatory changes to suggest diverticulitis. Pelvic organs: Grossly unremarkable. Bladder: Unremarkable. No mass. Abdominal wall: Diffuse anasarca. Bones: Chronic appearing compression fractures involving the superior endplates of the L2 and L4 vertebral bodies with associated sclerosis. There is up to 30% loss of height associated with both compression fractures. Bilateral total hip arthroplasties with associated beam hardening artifact which limits evaluation of adjacent structures. IMPRESSION: 1. Moderate right pleural effusion with overlying atelectasis and/or consolidation. Small left pleural effusion with overlying atelectasis. 2. Moderate cardiomegaly with small pericardial effusion dense coronary artery calcification. 3. No intra-abdominal fluid collection identified to suggest hematoma. 4. Scattered colonic diverticula without adjacent inflammatory changes to suggest diverticulitis. 5. Anasarca. 6. Chronic appearing compression fractures of the L2 and L4 vertebral bodies as described above. Correlate with clinical findings. If there is clinical concern for an acute component of the compression fractures, MRI could be obtained. Procedure: CT CHEST WITHOUT CONTRAST Reason for study/Clinical History: PLEURAL EFFUSIONS/ PNA Comparison Study: None available at time of dictation. Exam Date: 09/24/2024 09:36 AM TECHNIQUE: Multidetector CT of the chest was performed from the lung apices to the upper abdomen without the use of intravenous contract. Axial, coronal and sagittal multiplanar reformats were performed. Radiation Dose Information: CT Dose: CTDI volume is 29.85 mGy. Dose-length product is 1003.43 mGy*cm The dose indicators for CT are the volume Computed Tomography (CT) Dose Index (CTDIvol) and the Dose Length Product (DLP), and are measured in units of mGy and mGy-cm, respectively. These indicators are not patient dose, but values generated from the CT scanner acquisition factors. The report includes radiation exposure data for exposures received during this examination. FINDINGS: Lower neck: Normal thyroid. Lungs: Large right pleural effusion. Small left pleural effusion. Increased interstitial opacities. Heart/Vascular Structures: Cardiomegaly. Coronary artery calcifications. Lymph Nodes: No adenopathy Pleura: No pleural effusion or significant pneumothorax. Musculoskeletal: No acute osseous abnormality. Soft tissues: Normal. Upper abdomen: Limited portions of the upper abdomen are unremarkable. IMPRESSION: Cardiomegaly with CHF. Large right pleural effusion. Small left pleural effusion. Procedure: CT CHEST WITHOUT CONTRAST Reason for study/Clinical History: PLEURAL EFFUSIONS/ PNA Comparison Study: None available at time of dictation. Exam Date: 09/24/2024 09:36 AM TECHNIQUE: Multidetector CT of the chest was performed from the lung apices to the upper abdomen without the use of intravenous contract. Axial, coronal and sagittal multiplanar reformats were performed. Radiation Dose Information: CT Dose: CTDI volume is 29.85 mGy. Dose-length product is 1003.43 mGy*cm The dose indicators for CT are the volume Computed Tomography (CT) Dose Index (CTDIvol) and the Dose Length Product (DLP), and are measured in units of mGy and mGy-cm, respectively. These indicators are not patient dose, but values generated from the CT scanner acquisition factors. The report includes radiation exposure data for exposures received during this examination. FINDINGS: Lower neck: Normal thyroid. Lungs: Large right pleural effusion. Small left pleural effusion. Increased interstitial opacities. Heart/Vascular Structures: Cardiomegaly. Coronary artery calcifications. Lymph Nodes: No adenopathy Pleura: No pleural effusion or significant pneumothorax. Musculoskeletal: No acute osseous abnormality. Soft tissues: Normal. Upper abdomen: Limited portions of the upper abdomen are unremarkable. IMPRESSION: Cardiomegaly with CHF. Large right pleural effusion. Small left pleural effusion. XY INFERIOR VENA CAVA FILTER, HISTORY: 79 F with history of A. Fib on anticoagulation and chronic anemia with high risk for developing DVT and complications with bleeding. Here for a prophylatic IVC filter placement so that she will be taken off anticoagulation medication. PROCEDURE: Informed consent was obtained. The patient was placed on the fluoroscopic table in supine position. The right groin was prepped with chlorhexidine which was allowed to dry and draped in the usual sterile fashion. Time out was performed. Following administration of 1% local lidocaine, the common femoral vein was accessed with a micropuncture set under ultrasound guidance, and an image documenting patency sent to PACS. A 6 [place] sheath was placed into the upper iliac vein. A cavogram was performed and the level of the renal veins were identified. The sheath was exchanged for a 9.6 [place] introducer sheath, and a Bard G2 Sebastian IVC filter was deployed in an infrarenal location. The introducer sheath was removed and the venotomy closed with manual compression. Post-deployment image was obtained. No immediate complication was identified. DAP 1130 FLUOROSCOPY TIME: 1.3 minutes. CONTRAST USED: 25 mL Isovue 300. SEDATION: Dr. Nomi James was personally responsible for the administration of moderate sedation during the procedure performed, including the use of an independent trained observer who had no other duties during the procedure. The drugs utilized were IV fentanyl and versed (see nursing log for details). The total time of supervision by the attending physician was approximately 40 minutes. FINDINGS: There is a patent single IVC visualized without intraluminal filling defect. No renal venous anomaly is noted. Post-procedure image demonstrates good positioning of the IVC filter in an infrarenal position. IMPRESSION: Infrarenal IVC filter placement. PLAN: Consideration should be made for removal of this retrievable filter after and if medical necessity for caval filtration is no longer present. If we in IR are unable to contact the patient in a timely fashion, please contact our office, and we will attempt to arrange for filter retrieval at the earliest convenience. Condition at Discharge: Stable Final Diagnosis/Problems List Acute metabolic encephalopathy likely in the setting of sepsis Sepsis due to UTI due to multi drug resistant microorganism History of AFib, on Xarelto at home Acute on chronic microcytic hypochromic anemia [place], hemodynamically mediated/VMN on possible CKD stage III Hyperkalemia due to above, now improved Hyperbilirubinemia Hypoalbuminemia Morbid obesity Discharge Disposition: Long-Term Facility Discharge Instruct/Medications Diet: Cardiac 2g Na,low cholest, Renal Activity: No Restrictions, As Tolerated Follow Up/Referral: F/U with her PCP in 1 week Medications: IV meropenem 1gr Q8hrs for 10 days cont rest of medications per paperwork. Discharge Statement: "Patient was advised to return to the ER or call 911 if any headaches, dizziness, shortness of breath, chest pain, abdominal pain, bleeding, fevers, or worsening of medical condition. Patient was counseled about treatment plan, medications, possible side effects, patientverbalized understanding. All questions were answered to the best of my ability. This discharge took greater then 30 minutes in planning, reviewing documentation, counseling the patient, and discussing with other team members." ASSESSMENT ASSESSMENT Assessment Acute metabolic encephalopathy likely in the setting of sepsis Sepsis due to UTI due to multi drug resistant microorganism History of AFib, on Xarelto at home Acute on chronic microcytic hypochromic anemia [place], hemodynamically mediated/VMN on possible CKD stage III Hyperkalemia due to above, now improved Hyperbilirubinemia Hypoalbuminemia Morbid obesity Date of Service: Sep 29, 2024 Billing Provider: ZOHAIB CARIAS MD Common Visit Codes: 10236-FUL/OBS DISCH DAY >30min JAIDEN RICE RESIDENT Sep 29, 2024 07:57 ZOHAIB CARIAS MD Sep 29, 2024 21:17
[2024-09-29 08:17] LABS: Basophils # (auto) 0 10 ^3/uL (0-0.2); Eosinophils # (auto) 0.1 10 ^3/uL (0-0.8); Hemoglobin 8.2 g/dL (12.2-16.2); Neutrophils # (auto) 4.4 10 ^3/uL (1.6-8.6); Nucleated Red Blood Cells % 0.4 %; White Blood Cell 5.8 10^3/uL (4.4-10.8)
[2024-09-29 08:19] LABS: Basophils % (auto) 0.4 % (0.0-2.0); Eosinophils % (auto) 1.3 % (0.0-7.0); Hematocrit 27.6 % (36.0-46.0); Lymphocytes # (auto) 0.6 10 ^3/uL (0.4-5.4); Lymphocytes % (auto) 9.8 % (10.0-50.0); Mean Corpuscular Hemoglobin 24.1 pg (28.0-32.0); Mean Corpuscular Hgb Conc. 29.9 g/dL (32.0-36.0); Mean Corpuscular Volume 80.7 fL (80.0-100.0); Monocytes # (auto) 0.7 10 ^3/uL (0-1.3); Monocytes % (auto) 12.7 % (0.0-12.0); Neutrophils % (auto) 75.8 % (37.0-80.0); Platelet Count (auto) 174 10^3/uL (140-450); Red Blood Cells 3.42 10^6/uL (4.0-5.20)
[2024-09-29 08:21] LABS: Red Cell Distribution Width 33.5 % (11.8-14.3)
[2024-09-29 08:26] LABS: Anion Gap 4 (5-15); Carbon Dioxide 30 mmol/L (20-31); Potassium 4.8 mmol/L (3.5-5.1); Sodium 141 mmol/L (136-145)
[2024-09-29 08:27] LABS: Calcium 9.3 mg/dL (8.7-10.4)
[2024-09-29 08:32] LABS: BUN/Creatinine Ratio 22.7 (10.0-20.0); Blood Urea Nitrogen 22 mg/dL (9-23); Glucose 78 mg/dL (74-106)
[2024-09-29 08:35] LABS: Chloride 107 mmol/L (98-107)
--- NOTE | 2024-09-29 08:57 | ECG ---
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
[2024-09-29] MEDS: MORPHINE SULFATE INJ 2 MG/ml SYRG IV ONE (09:36)
[2024-09-29 09:55] LABS: Platelet Estimate Adequate
[2024-09-29 09:56] LABS: Anisocytosis Moderate; Hypochromia Slight; Target Cell MANY
[2024-09-29] MEDS: FUROSEMIDE 20 MG TAB PO SCH (13:34)
== END 2024-09-29 18:41 | DRG 871 ==
LOC: EDBD 14:14 → ER 14:28 → OVERFLOW 22:56 → TELE-WESTW 09-24 09:50
PROVIDERS: ADMIT Internal Medicine; ATTEND Emergency Medicine
PROC: 05HA33Z Insertion of Infusion Device into Left Brachial Vein, Percutaneous Approach (ICD-10-PCS; 2024-09-23)
PROC: B54NZZA Ultrasonography of Left Upper Extremity Veins, Guidance (ICD-10-PCS; 2024-09-23)
PROC: 0W993ZZ Drainage of Right Pleural Cavity, Percutaneous Approach (ICD-10-PCS; 2024-09-24)
PROC: 06H03DZ Insertion of Intraluminal Device into Inferior Vena Cava, Percutaneous Approach (ICD-10-PCS; principal; 2024-09-28)
PROC: 05HB33Z Insertion of Infusion Device into Right Basilic Vein, Percutaneous Approach (ICD-10-PCS; 2024-09-28)
PROC: B54MZZA Ultrasonography of Right Upper Extremity Veins, Guidance (ICD-10-PCS; 2024-09-28)
DX: A41.9 Sepsis, unspecified organism (principal); E43 Unspecified severe protein-calorie malnutrition; G93.41 Metabolic encephalopathy; N17.0 Acute kidney failure with tubular necrosis; J90 Pleural effusion, not elsewhere classified; D68.59 Other primary thrombophilia; N39.0 Urinary tract infection, site not specified; Z16.24 Resistance to multiple antibiotics; Z68.41 Body mass index [BMI] 40.0-44.9, adult; E87.5 Hyperkalemia; I50.9 Heart failure, unspecified; E88.09 Other disorders of plasma-protein metabolism, not elsewhere classified; Z20.822 Contact with and (suspected) exposure to COVID-19; D50.9 Iron deficiency anemia, unspecified; E66.01 Morbid (severe) obesity due to excess calories; F39 Unspecified mood [affective] disorder; N18.30 Chronic kidney disease, stage 3 unspecified; I48.91 Unspecified atrial fibrillation; F41.9 Anxiety disorder, unspecified; E80.6 Other disorders of bilirubin metabolism; Z79.01 Long term (current) use of anticoagulants; Z88.5 Allergy status to narcotic agent
CPT/HCPCS: 32555; 36415; 37619; 70450; 71045; 71250; 74176; 76705; 76775; 76942; 80048; 80053; 81001; 82105; 82140; 82378; 82607; 82728; 82962; 83540; 83550; 83605; 83880; 83986; 84439; 84443; 84484; 85007; 85025; 85027; 85610; 85730; 86300; 86301; 86304; 86850; 86900; 86901; 87040; 87070; 87086; 87205; 87426; 87804; 89051; 92610; 93005; 93306; 96374; 96375; 97110; 97163; 97530; 99152; 99291; C1894; G0378; J1815; J2185; J2250; J2543; P9047; Q9967

== ENCOUNTER 2024-10-08 19:22 | Inpatient (IN) | payer MEDICARE, OTHER ==
[~2024-10-08] VITALS: Ht 165.1 cm; Wt 116.3 kg
[~2024-10-08 19:22] MED LIST: ACET250T20 PO; ASCO500W PO; BISA10SU45 RE; BUDE1AER16 IN; CALC-509 PO; CHOL135C10 OR; COEN400C8 OR; CRAN600T OR; CYAN100060 PO; DIGO0.12 PO; FLAX100024 PO; FURO20TA3 PO; IPRAAER6 IN; LEVO112T4 PO; LORA-1123 PO; MAGN400S25 PO; MELO7.5T7 PO; OMEG-20 PO; POTA-36 PO; RIVA20TA PO; [UNRECOGNIZED DRUG - CODE] PO
--- NOTE | 2024-10-08 19:41 | ED.PDOC ---
History of Present Illness HPI Comments 79-year-old female who came to ER via EMS for nosebleeding. Patient was picked up at [facility]. Patient recently discharged here last September 29, 2024 and was diagnosed with 1. Acute metabolic encephalopathy likely in the setting of sepsis, 2. Sepsis due to UTI due to multi drug resistant microorganism, 3. Hi story of AFib, on Xarelto at home , 4. Acute on chronic microcytic hypochromic anemia, 5. [place], hemodynamically mediated/VMN on possible CKD stage III, 6. Hyperkalemia due to above, now improved, 7. Hyperbilirubinemia, 8. Hypoalbuminemia, 9. Morbid obesity Patient brought here today, because caregivers noted bleeding at her nose, gums, and midline. Patient appears confused at this time of care, and no further information could be taken from her at this time Chief Complaint: Nosebleeding Time Seen by MD: 19:38 Allergies: Coded Allergies: Ceftriaxone (Verified Allergy, Mild, ITCHING, 10/09/24) Codeine (Verified Allergy, Unknown, 09/23/24) Gabapentin (Verified Allergy, Unknown, 09/23/24) Uncoded Allergies: adhesive tape (Allergy, Intermediate, 10/08/24) OPIATES (Adverse Reaction, Unknown, 10/08/24) patient becomes lethargic. Home Meds Reported Medications Ipratropium-Albuterol (COMBIVENT RESPIMAT) Respimat Aer, 1 IN, AER 09/24/24 Budesonide-Formoterol Fumarate (Breyna 160-4.5 Mcg/Act) 1 Aer Aer, 1 AER IN, AER 09/24/24 Magnesium Hydroxide (Milk Of Magnesia) 400 Mg/5 Ml Mckayla, 400 MG PO, ML 09/24/24 Bisacodyl (Dulcolax) 10 Mg Sup, 70 MG RE, SUPP 09/24/24 Digoxin (Digoxin) 125 Mcg Tab, 125 MCG PO, TAB 09/24/24 Meloxicam (Meloxicam) 7.5 Mg Tab, 1 TAB PO DAILY, #30 TAB 2 Refills 09/24/24 Cranberry Extract (CRANBERRY) 600 Mg Tab, 600 MG OR, TAB 09/24/24 Flaxseed (Linseed) (Flax Seed Oil 1000 mg) 1 Cap Cap, 1 CAP PO, CAP 09/24/24 [place]-3 Fatty Acids (FISH OIL) 1,000 Mg Cap, 1000 MG PO, CAP 09/24/24 Ascorbic Acid (Acerola C 500) 500 Mg Waf, 500 MG PO, MISC 09/24/24 Calcium Carbonate-Cholecalcife (Calcium 500 + D 500-200 mg-Unit) 1 Tab Tab, 1 TAB PO, TAB 09/24/24 Acetazolamide (Acetazolamide) 250 Mg Tab, 500 MG PO Q6HR for 30 Days, MG 0 Refills 09/24/24 Cyanocobalamin (B-12) 1,000 Mcg Enedelia, 1000 MCG PO, ENEDELIA 09/24/24 Valerian Extract (Valerian Root) 500 Mg Cap, 500 MG PO, CAP 09/24/24 Coenzyme Q10 (Ubidecarenone) (COQ-10) 400 Mg Cap, 300 MG OR, CAP 09/24/24 Lorazepam (Lorazepam) 1 Mg Tab, 1 MG PO, TAB 09/24/24 Potassium Chloride (POTASSIUM CHLORIDE CR) 10 Meq Tb, 10 MEQ PO, TAB 09/24/24 Furosemide (Furosemide) 20 Mg Tab, 20 MG PO DAILY for 30 Days, MG 09/24/24 Rivaroxaban (XARELTO) 20 Mg Tab, 1 TAB PO DAILY, #30 TAB 11 Refills 09/24/24 Choline Fenofibrate (FENOFIBRIC ACID DR) 135 Mg Cap, 135 MG OR, CAP 09/24/24 Levothyroxine Sodium (Levothyroxine Sodium) 112 Mcg Tab, 112 MCG PO QAM for 30 Days, MCG 09/24/24 Past Medical History PAST MEDICAL HISTORY: Pt Confused Surgical History: Pt Confused 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 Family History Family History: Pt Confused Social History Smoker: Pt Confused Alcohol: Pt Confused Drugs: Pt Confused [place] In: [place] Constitutional: denies: chills, diaphoresis, fatigue, fever, malaise, sweats, weakness, others EENTM: reports: nose bleeding; denies: blurred vision, double vision, ear bleeding, ear discharge, ear drainage, ear pain, ear ringing, eye pain, eye redness, hearing loss, mouth pain, mouth swelling, nasal discharge, nose congestion, nose pain, photophobia, tearing, throat pain, throat swelling, voice changes, others Respiratory: denies: cough, hemoptysis, orthopnea, SOB at rest, shortness of breath, SOB with excertion, stridor, wheezing, others Cardiovascular: denies: chest pain, dizzy spells, diaphoresis, Dyspnea on exertion, edema, irregular heart beat, left arm pain, lightheadedness, palpitations, PND, syncope, others Gastrointestinal: denies: abdomen distended, abdominal pain, blood streaked bowels, constipated, diarrhea, dysphagia, difficulty swallowing, hematemesis, melena, nausea, poor appetite, poor fluid intake, rectal bleeding, rectal pain, vomiting, others Genitourinary: denies: abnormal vagina bleeding, burning, dyspareunia, dysuria, flank pain, frequency, hematuria, incontinence, pain, , vagina discharge, urgency, others Neurological: denies: dizziness, fainting, headache, left sided numbness, left sided weakness, numbness, paresthesia, pre-existing deficit, right sided numbness, right sided weakness, seizure, speech problems, tingling, tremors, weakness, others Musculoskeletal: denies: back pain, gout, joint pain, joint swelling, muscle pain, muscle stiffness, neck pain, others Integumetry: denies: bruises, change in color, change in hair/nails, dryness, laceration, lesions, lumps, rash, wounds, others Allergic/Immunocompromised: denies: Difficulty Healing, Frequent Infections, Hives, Itching, others Hematologic/Lymphatic: denies: anemia, blood clots, easy bleeding, easy bruising, swollen glands, others Endocrine: denies: excessive hunger, excessive sweating, excessive thirst, excessive urination, flushing, intolerance to cold, intolerance to heat, unexplained weight gain, unexplained weight loss, others Psychiatric: denies: anxiety, bipolar disorder, depression, hopeless, panic disorder, schizophrenia, sleepless, suicidal, others Physical Exam General Appearance: No Apparent Distress, Normal HEENT: Pharynx Normal, TMs Normal, Other (Epistaxis, controlled at this time) Neck: Full Range of Motion, Non-Tender, Normal, Normal Inspection Respiratory: Chest Non-Tender, Lungs Clear, No Accessory Muscle Use, No Respiratory Distress, Normal Breath Sounds Cardiovascular: No Edema, No JVD, No Murmur, No Gallop, Normal Peripheral Pulses, Regular Rate/Rhythm Breast Exam: Deferred Gastrointestinal: No Organomegaly, Non Tender, No Pulsatile Mass, Normal Bowel Sounds, Soft Genitalia: Deferred Pelvic: Deferred Rectal: Deferred Extremities: No calf tenderness, Normal capillary refill, Normal inspection, Normal range of motion, Non-tender, No pedal edema Musculoskeletal : Apperance: Normal Neurologic: Alert, document control supervisor II-XII nml as Tested, No Motor Deficits, Normal Affect, Normal Mood, No Sensory Deficits Cerebellar Function: Normal Reflexes: Normal Skin: Dry, Normal Color, Warm Lymphatic: No Adenopathy Was a procedure done? Was a procedure done?: No EKG EKG : Pulse Rate (adult): 68 Cardiac Rhythm: NSR Comments Supraventricular bigeminy Differential Dx Considerations may include: Anemia, electrolyte imbalance, epistaxis, anxiety X-Ray, Labs, Meds, VS Vital Signs Date Time Temp Pulse Resp B/P (MAP) Pulse Ox O2 Delivery O2 Flow Rate FiO2 10/08/24 21:02 75 10/08/24 20:25 77 22 90 Nasal Cannula* 2 28 10/08/24 20:24 98.7 89 16 89 98.7 10/08/24 19:41 68 10/08/24 19:35 68 10/08/24 19:32 98.8 78 16 117/68 (84) 99 98.8 Lab Test 10/08/24 22:00 10/08/24 21:17 10/08/24 19:50 Range/Units Urine Color Yellow Yellow Urine Clarity Turbid H Clear Urine pH 5.5 5.0-9.0 Urine Specific [place] 1.023 1.001-1.035 Urine Protein Trace H Negative Urine Ketones Trace Negative Urine Blood Negative Negative /uL Urine Nitrite Negative Negative Urine Bilirubin Negative Negative Urine Urobilinogen Normal Negative mg/dL Urine Leukocyte Esterase 1+ Negative /uL Urine RBC <1 0 - 4 /hpf Urine Microscopic WBC 13 H 0-5 /HPF Urine Squamous Epithelial Cells Few <5 /hpf Urine Calcium Oxalate Crystals Few None Seen Urine Bacteria Few H None Seen /hpf Urine Hyaline Casts Mod 0 - 2 /lpf Urine Mucus Few None Seen Urine Glucose Normal Normal mg/dL Troponin I High Sensitivity 11 12 </=34 ng/L White Blood Count 3.7 L 4.4-10.8 10^3/uL Red Blood Count 4.19 4.0-5.20 10^6/uL Hemoglobin 10.2 L 12.2-16.2 g/dL Hematocrit 34.7 L 36.0-46.0 % Mean Corpuscular Volume 82.6 80.0-100.0 fL Mean Corpuscular Hemoglobin 24.2 L 28.0-32.0 pg Mean Corpuscular Hemoglobin Concent 29.3 L 32.0-36.0 g/dL Red Cell Distribution Width 33.9 H 11.8-14.3 % Platelet Count 162 140-450 10^3/uL Mean Platelet Volume 8.2 6.9-10.8 fL Neutrophils (%) (Auto) 37.0-80.0 % Lymphocytes (%) (Auto) 10.0-50.0 % Monocytes (%) (Auto) 0.0-12.0 % Basophils (%) (Auto) 0.0-2.0 % Neutrophils # (Auto) 1.6-8.6 10 ^3/uL Lymphocytes # (Auto) 0.4-5.4 10 ^3/uL Monocytes # (Auto) 0-1.3 10 ^3/uL Differential Total Cells Counted 100.0 100 Neutrophils % (Manual) 64 37.0-80.0 Band Neutrophils % (Manual) 0 Lymphocytes % (Manual) 17 10.0-50.0 Monocytes % (Manual) 18 H 0-12 Eosinophils % (Manual) 1 0-7 Basophils % (Manual) 0 0.0-2.0 Metamyelocytes % (manual) 0 Myelocytes % (Manual) 0 Promyelocytes % (Manual) 0 Blast Cells % (Manual) 0 Reactive Lymphocytes 0 Platelet Estimate Adequate Hypochromasia (manual) Slight Anisocytosis (manual) Marked Target Cells Many Stomatocytes Few Prothrombin Time 15.7 H 9.3-11.8 sec Prothrombin Time INR 1.55 H 0.9-1.15 Activated Partial Thromboplast Time 36.2 H 24.5-34.5 SEC Sodium Level 149 H 136-145 mmol/L Potassium Level 4.2 3.5-5.1 mmol/L Chloride Level 103 98-107 mmol/L Carbon Dioxide Level > 40 *H 20-31 mmol/L Anion Gap 5.92745 5-15 Blood Urea Nitrogen 10 9-23 mg/dL Creatinine 0.69 0.550-1.02 mg/dL Glomerular Filtration Rate Calc 89 >90 mL/min BUN/Creatinine Ratio 14.5 10.0-20.0 Serum Glucose 97 74-106 mg/dL Lactic Acid Level 2.0 0.4-2.0 mmol/L Calcium Level 9.2 8.7-10.4 mg/dL Microbiology Date/Time Source Procedure Growth Status 10/08/24 19:50 Blood Blood Culture - Preliminary NO GROWTH AFTER 24 HOURS OF INCUBATION. Resulted 10/08/24 19:40 Blood Blood Culture - Preliminary NO GROWTH AFTER 24 HOURS OF INCUBATION. Resulted Time of 1ST Reevaluation: 19:38 Reevaluation 1ST: Unchanged Patient Education/Counseling: Diagnosis, Treatment Family Education/Counseling: No Family Present Departure 1 Departure Time of Disposition: 05:44 (Patient with a acute metabolic encephalopathy. We will admit patient for further workup) Impression: Primary Impression: Acute metabolic encephalopathy Disposition: ADMITTED INPATIENT Admit to: Med Surg Condition: Serious Critical Care Note Critical Care Time?: Yes Critical care comment: Altered mental status Authorized and Performed by: Latia Cohn MD Total critical care time: Approximately 39 minutes Due to a high probability of clinically significant, life threatening deterioration, the patient required my highest level of preparedness to intervene emergently and I personally spent this critical care time directly and personally managing the patient. This critical care time included obtaining a history; examining the patient; pulse oximetry; ordering and review of studies; arranging urgent treatment with development of a management plan; evaluation of patient's response to treatment; frequent reassessment; and, discussions with other providers. This critical care time was performed to assess and manage the high probability of imminent, life-threatening deterioration that could result in multi-organ failure. It was exclusive of separately billable procedures and treating other patients and teaching time. Please see my other sections and the rest of the note for further information on patient assessment and treatment. Stability Stability form required: No Heart Score Heart Score: Heart Score Response (Comments) Value History N/A 0 EKG N/A 0 Age N/A 0 Risk Factors N/A 0 Troponin N/A 0 Total 0 I personally scribed for LATIA COHN MD ([email or web address]) on 10/08/24 at 19:41. Electronically submitted by Angel Jerry ([email or web address]). LATIA COHN MD October 08, 2024 19:41
[2024-10-08 20:04] LABS: Mean Corpuscular Hemoglobin 24.2 pg (28.0-32.0); Red Blood Cells 4.19 10^6/uL (4.0-5.20); White Blood Cell 3.7 10^3/uL (4.4-10.8)
[2024-10-08 20:06] LABS: Hematocrit 34.7 % (36.0-46.0); Hemoglobin 10.2 g/dL (12.2-16.2); Mean Corpuscular Hgb Conc. 29.3 g/dL (32.0-36.0); Mean Corpuscular Volume 82.6 fL (80.0-100.0); Platelet Count (auto) 162 10^3/uL (140-450)
[2024-10-08 20:07] LABS: Red Cell Distribution Width 33.9 % (11.8-14.3)
[2024-10-08 20:09] LABS: Band Neutrophils % (manual) 0; Basophils % (manual) 0 (0.0-2.0); Blast Cells 0; Metamyelocytes % 0; Myelocytes % 0; Promyelocytes % 0; Reactive Lymphocytes 0
[2024-10-08 20:21] LABS: Chloride 103 mmol/L (98-107); Potassium 4.2 mmol/L (3.5-5.1)
[2024-10-08] MEDS: HALOPERIDOL LACTATE 5 MG/ML INJ VIAL IM ONE (20:21)
[2024-10-08] MEDS: HALOPERIDOL LACTATE 5 MG/ML INJ VIAL ONE (20:21)
[2024-10-08 20:22] LABS: Calcium 9.2 mg/dL (8.7-10.4)
[2024-10-08 20:24] LABS: INR 1.55 (0.9-1.15); Partial Thromboplastin Time 36.2 SEC (24.5-34.5); Prothrombin Time 15.7 sec (9.3-11.8)
[2024-10-08 20:25] VITALS: PULSE 77; RESP 22; O2SAT 90
[2024-10-08 20:27] LABS: BUN/Creatinine Ratio 14.5 (10.0-20.0); Blood Urea Nitrogen 10 mg/dL (9-23); Glucose 97 mg/dL (74-106)
[2024-10-08 20:32] LABS: Anion Gap 5.99999 (5-15); Sodium 149 mmol/L (136-145)
[2024-10-08 20:40] LABS: Carbon Dioxide > 40 mmol/L (20-31)
--- NOTE | 2024-10-08 20:57 | DVH ---
CHEST RADIOGRAPH Indication: weakness Technique: Single frontal view of the chest was obtained Comparison: XY CHEST PORTABLE on DOS: 09/24/24, XY CHEST PORTABLE on DOS: 09/23/24 FINDINGS: Lines and Tubes: None Lungs: Bilateral perihilar infiltrates with involvement right upper lobe and left lower lobe Pleura: No effusion. No pneumothorax. Cardiomediastinal contours: Unremarkable Bones: No acute osseous abnormality. IMPRESSION: 1. Bilateral perihilar infiltrates with involvement of the right upper lobe and left lower lobe.
[2024-10-08 21:12] LABS: Lymphocytes % (manual) 17 (10.0-50.0); Monocytes % (manual) 18 (0-12)
[2024-10-08 21:13] LABS: Anisocytosis Marked; Eosinophils % (manual) 1 (0-7); Hypochromia Slight; Platelet Estimate Adequate; Stomatocytes Few
[2024-10-08 21:14] LABS: Target Cell MANY
[2024-10-08] MEDS ORDERED: NITROGLYCERIN 0.4 MG SL TAB SL PRN (22:30)
[2024-10-08] MEDS ORDERED: ONDANSETRON HCL 4 MG/2 ML VIAL IV PRN (22:30)
[2024-10-08] MEDS ORDERED: MORPHINE SULFATE INJ 2 MG/ml SYRG IV PRN (22:30)
[2024-10-08] MEDS ORDERED: ACETAMINOPHEN 325 MG TAB PO PRN (22:30)
--- NOTE | 2024-10-08 22:34 | DVHHP2 ---
Patient Family History: Patient reports no known family medical history. Allergies: Coded Allergies: Codeine (Verified Allergy, Unknown, 09/23/24) Gabapentin (Verified Allergy, Unknown, 09/23/24) Uncoded Allergies: OPIATES (Allergy, Unknown, 09/23/24) Home Meds Reported Medications Ipratropium-Albuterol (COMBIVENT RESPIMAT) Respimat Aer, 1 IN, AER 09/24/24 Budesonide-Formoterol Fumarate (Breyna 160-4.5 Mcg/Act) 1 Aer Aer, 1 AER IN, AER 09/24/24 Magnesium Hydroxide (Milk Of Magnesia) 400 Mg/5 Ml Mckayla, 400 MG PO, ML 09/24/24 Bisacodyl (Dulcolax) 10 Mg Sup, 70 MG RE, SUPP 09/24/24 Digoxin (Digoxin) 125 Mcg Tab, 125 MCG PO, TAB 09/24/24 Meloxicam (Meloxicam) 7.5 Mg Tab, 1 TAB PO DAILY, #30 TAB 2 Refills 09/24/24 Cranberry Extract (CRANBERRY) 600 Mg Tab, 600 MG OR, TAB 09/24/24 Flaxseed (Linseed) (Flax Seed Oil 1000 mg) 1 Cap Cap, 1 CAP PO, CAP 09/24/24 [place]-3 Fatty Acids (FISH OIL) 1,000 Mg Cap, 1000 MG PO, CAP 09/24/24 Ascorbic Acid (Acerola C 500) 500 Mg Waf, 500 MG PO, MISC 09/24/24 Calcium Carbonate-Cholecalcife (Calcium 500 + D 500-200 mg-Unit) 1 Tab Tab, 1 TAB PO, TAB 09/24/24 Acetazolamide (Acetazolamide) 250 Mg Tab, 500 MG PO Q6HR for 30 Days, MG 0 Refills 09/24/24 Cyanocobalamin (B-12) 1,000 Mcg Enedelia, 1000 MCG PO, ENEDELIA 09/24/24 Valerian Extract (Valerian Root) 500 Mg Cap, 500 MG PO, CAP 09/24/24 Coenzyme Q10 (Ubidecarenone) (COQ-10) 400 Mg Cap, 300 MG OR, CAP 09/24/24 Lorazepam (Lorazepam) 1 Mg Tab, 1 MG PO, TAB 09/24/24 Potassium Chloride (POTASSIUM CHLORIDE CR) 10 Meq Tb, 10 MEQ PO, TAB 09/24/24 Furosemide (Furosemide) 20 Mg Tab, 20 MG PO DAILY for 30 Days, MG 09/24/24 Rivaroxaban (XARELTO) 20 Mg Tab, 1 TAB PO DAILY, #30 TAB 11 Refills 09/24/24 Choline Fenofibrate (FENOFIBRIC ACID DR) 135 Mg Cap, 135 MG OR, CAP 09/24/24 Levothyroxine Sodium (Levothyroxine Sodium) 112 Mcg Tab, 112 MCG PO QAM for 30 Days, MCG 09/24/24 Current Medications Current Medications Medications (Trade) Dose Ordered Sig/Rj Route PRN Reason Start Time Stop Time Status Last Admin Acetaminophen (Tylenol Tablet) 325 mg Q4HP PRN PO MILD PAIN (1-3 PAIN SCALE) 10/08/24 22:30 UNV Acetaminophen/ Hydrocodone Bitart ([place] 5/325MG Tab) 1 tab Q4HP PRN PO MODERATE PAIN (4-6 PAIN SCALE) 10/08/24 22:30 UNV Ondansetron HCl (Zofran) 4 mg Q4HP PRN IV NAUSEA / VOMITING 10/08/24 22:30 UNV Nitroglycerin (Ntrostat Sublingual) 0.4 mg Q5MINP PRN SL FOR CHEST PAIN 10/08/24 22:30 UNV Morphine Sulfate 2 mg Q30M PRN IV FOR CHEST PAIN 10/08/24 22:30 UNV Vital Signs Vital Signs Date Time Temp Pulse Resp B/P (MAP) Pulse Ox O2 Delivery O2 Flow Rate FiO2 10/08/24 20:25 77 22 90 Nasal Cannula* 2 28 10/08/24 20:24 98.7 98.7 10/08/24 19:32 117/68 (84) Results Labs Test 10/08/24 22:00 10/08/24 21:17 10/08/24 19:50 Range/Units Troponin I High Sensitivity 11 </=34 ng/L White Blood Count 3.7 L 4.4-10.8 10^3/uL Red Blood Count 4.19 4.0-5.20 10^6/uL Hemoglobin 10.2 L 12.2-16.2 g/dL Hematocrit 34.7 L 36.0-46.0 % Mean Corpuscular Volume 82.6 80.0-100.0 fL Mean Corpuscular Hemoglobin 24.2 L 28.0-32.0 pg Mean Corpuscular Hemoglobin Concent 29.3 L 32.0-36.0 g/dL Red Cell Distribution Width 33.9 H 11.8-14.3 % Platelet Count 162 140-450 10^3/uL Mean Platelet Volume 8.2 6.9-10.8 fL Neutrophils (%) (Auto) 37.0-80.0 % Lymphocytes (%) (Auto) 10.0-50.0 % Monocytes (%) (Auto) 0.0-12.0 % Basophils (%) (Auto) 0.0-2.0 % Neutrophils # (Auto) 1.6-8.6 10 ^3/uL Lymphocytes # (Auto) 0.4-5.4 10 ^3/uL Monocytes # (Auto) 0-1.3 10 ^3/uL Differential Total Cells Counted 100.0 100 Neutrophils % (Manual) 64 37.0-80.0 Band Neutrophils % (Manual) 0 Lymphocytes % (Manual) 17 10.0-50.0 Monocytes % (Manual) 18 H 0-12 Eosinophils % (Manual) 1 0-7 Basophils % (Manual) 0 0.0-2.0 Metamyelocytes % (manual) 0 Myelocytes % (Manual) 0 Promyelocytes % (Manual) 0 Blast Cells % (Manual) 0 Reactive Lymphocytes 0 Platelet Estimate Adequate Hypochromasia (manual) Slight Anisocytosis (manual) Marked Target Cells Many Stomatocytes Few Prothrombin Time 15.7 H 9.3-11.8 sec Prothrombin Time INR 1.55 H 0.9-1.15 Activated Partial Thromboplast Time 36.2 H 24.5-34.5 SEC Sodium Level 149 H 136-145 mmol/L Potassium Level 4.2 3.5-5.1 mmol/L Chloride Level 103 98-107 mmol/L Carbon Dioxide Level > 40 *H 20-31 mmol/L Anion Gap 5.00969 5-15 Blood Urea Nitrogen 10 9-23 mg/dL Creatinine 0.69 0.550-1.02 mg/dL Glomerular Filtration Rate Calc 89 >90 mL/min BUN/Creatinine Ratio 14.5 10.0-20.0 Serum Glucose 97 74-106 mg/dL Lactic Acid Level 2.0 0.4-2.0 mmol/L Calcium Level 9.2 8.7-10.4 mg/dL Primary Diagnosis Subjective: Chief Complaint Epistaxis (nosebleed) History of Present Illness Mrs. Ackerman, a patient with a history of persistent atrial fibrillation on Xarelto, chronic kidney disease stage 3, and recent hospitalization for sepsis, presents with epistaxis. She was transferred from [facility] to [facility] for evaluation of a nosebleed. The patient was recently discharged from [facility] where she was diagnosed with acute metabolic encephalopathy due to sepsis caused by a multidrug-resistant organism. During the current evaluation, she was found to have slight anemia and slight hypernatremia. The patient also has a history of hyperkalemia associated with her chronic kidney disease. At present, Mrs. Ackerman is confused, which limits the ability to obtain a detailed history. Her recent medical interactions include the evaluation by an ER doctor at [facility] for the nosebleed. The patient's current condition appears to be complicated by acute anemia due to acute blood loss from the epistaxis. Medical History Mrs. Ackerman has a history of persistent atrial fibrillation requiring chronic anticoagulation. She also has chronic kidney disease stage 3 and a history of hyperkalemia. The patient was recently discharged from [facility], where she was diagnosed with acute metabolic encephalopathy due to sepsis from a multidrug-resistant organism. Additionally, she has a history of anemia. Social History The patient's social history is limited due to their current confused state. According to available records, the patient has no history of smoking or drinking alcohol. Objective: N/A Assessment & Plan: Mrs. Ackerman, a patient with a history of persistent atrial fibrillation on anticoagulation, chronic kidney disease stage 3, and recent discharge for sepsis, presented from [facility] with epistaxis. Epistaxis Assessment: Patient presented with nose bleed (epistaxis) from [facility]. The patient has a history of chronic anticoagulation with Xarelto for atrial fibrillation, which likely contributes to the bleeding risk. Recent hospitalization for sepsis may have further compromised the patient's overall health status. Plan: - Admit patient to the hospital for further management and observation - Repeat CBC and BMP Acute anemia due to acute blood loss Assessment: Patient found to have slight anemia on initial evaluation, likely secondary to the acute blood loss from epistaxis. This is particularly concerning given the patient's history of chronic anemia and recent sepsis. Plan: - Monitor hemoglobin levels with repeat CBC Atrial fibrillation, persistent Assessment: Patient has a history of persistent atrial fibrillation and is on chronic anticoagulation with Xarelto. The current epistaxis raises concerns about the safety of continued anticoagulation. Plan: - Consult cardiology for evaluation regarding continuation of anticoagulation Hypernatremia Assessment: Patient found to have slight hypernatremia on initial evaluation. This electrolyte imbalance may be related to the patient's chronic kidney disease or recent sepsis. Plan: - Observe and monitor sodium levels Resolving sepsis Assessment: Patient was recently discharged from [facility] with a diagnosis of acute metabolic encephalopathy due to sepsis, caused by a multidrug-resistant organism. The patient's current confused state may be related to residual effects of the sepsis or metabolic derangements. Plan: - Continue to monitor for signs of recurrent infection - Assess mental status regularly Plan discussed with: Patient BRIAN MANRIQUEZ MD October 08, 2024 22:34
[2024-10-08 22:36] LABS: Urine Bacteria FEW /hpf (None Seen); Urine Blood Negative /uL (Negative); Urine Clarity Turbid (Clear); Urine Color Yellow (Yellow); Urine Hyaline Cast MOD /lpf (0 - 2); Urine Mucus FEW (None Seen); Urine Protein, UAD TRACE (Negative); Urine Specific Gravity 1.023 (1.001-1.035); Urine Squamous Epithelial Cell FEW /hpf (<5); Urine Urobilinogen Normal (Negative); Urine WBC 13 /HPF (0-5); Urine pH 5.5 (5.0-9.0)
[2024-10-09] VITALS (8 sets, daily range): BP systolic 95–117; BP diastolic 42–74; PULSE 60–82; RESP 15–18; TEMP 97.7; O2SAT 95–100
[2024-10-09] MEDS: HYDROcodone-ACET 5/325MG TAB PO PRN (00:48)
--- NOTE | 2024-10-09 06:26 | ECG ---
[facility] Test Date: 2024-10-08 Test Time: 19:35:32 Pat Name: LEESA ONEILL Department: ED Room: [address] [place] [address] A Gender: F Scheduling Manager: YF : 1945 Requested By: LATIA MUNOZ Order Number: [id number] Reading MD: Campbell Pfeiffer Measurements Intervals Landing Rate: 68 P: 0 WV: 184 QRS: 40 QRSD: 95 T: -84 QT: 512 QTc: 545 Interpretive Statements Sinus rhythm Supraventricular bigeminy Low voltage, extremity and precordial leads Nonspecific T abnormalities, lateral leads Prolonged QT interval Electronically Signed On 10-09-2024 9:22:38 PDT by Campbell Pfeiffer Please click the below link to view image of tracing.
--- NOTE | 2024-10-09 07:11 | DVHINCON2 ---
Date of service: October 09, 2024 History of Present Illness HPI Patient is a 79 year old female who was transferred from [facility]. She was transferred for nosebleed. Does have old history of atrial fibrillation and is on Xarelto as outpatient. She is confused and not source of history. Cardiology was involved for cardiac aspects of care and questioning if the anticoagulation needs to be continued. It seems that the patient was recently in the hospital with encephalopathy/sepsis. Information was obtained by reviewing the chart and communicating with staff. There is no report of chest pain. There is no report of hypotension. Home Meds Reported Medications Ipratropium-Albuterol (COMBIVENT RESPIMAT) Respimat Aer, 1 IN, AER 09/24/24 Budesonide-Formoterol Fumarate (Breyna 160-4.5 Mcg/Act) 1 Aer Aer, 1 AER IN, AER 09/24/24 Magnesium Hydroxide (Milk Of Magnesia) 400 Mg/5 Ml Mckayla, 400 MG PO, ML 09/24/24 Bisacodyl (Dulcolax) 10 Mg Sup, 70 MG RE, SUPP 09/24/24 Digoxin (Digoxin) 125 Mcg Tab, 125 MCG PO, TAB 09/24/24 Meloxicam (Meloxicam) 7.5 Mg Tab, 1 TAB PO DAILY, #30 TAB 2 Refills 09/24/24 Cranberry Extract (CRANBERRY) 600 Mg Tab, 600 MG OR, TAB 09/24/24 Flaxseed (Linseed) (Flax Seed Oil 1000 mg) 1 Cap Cap, 1 CAP PO, CAP 09/24/24 Napoleon-3 Fatty Acids (FISH OIL) 1,000 Mg Cap, 1000 MG PO, CAP 09/24/24 Ascorbic Acid (Acerola C 500) 500 Mg Waf, 500 MG PO, MISC 09/24/24 Calcium Carbonate-Cholecalcife (Calcium 500 + D 500-200 mg-Unit) 1 Tab Tab, 1 TAB PO, TAB 09/24/24 Acetazolamide (Acetazolamide) 250 Mg Tab, 500 MG PO Q6HR for 30 Days, MG 0 Refills 09/24/24 Cyanocobalamin (B-12) 1,000 Mcg Lory, 1000 MCG PO, LORY 09/24/24 Valerian Extract (Valerian Root) 500 Mg Cap, 500 MG PO, CAP 09/24/24 Coenzyme Q10 (Ubidecarenone) (COQ-10) 400 Mg Cap, 300 MG OR, CAP 09/24/24 Lorazepam (Lorazepam) 1 Mg Tab, 1 MG PO, TAB 09/24/24 Potassium Chloride (POTASSIUM CHLORIDE CR) 10 Meq Tb, 10 MEQ PO, TAB 09/24/24 Furosemide (Furosemide) 20 Mg Tab, 20 MG PO DAILY for 30 Days, MG 09/24/24 Rivaroxaban (XARELTO) 20 Mg Tab, 1 TAB PO DAILY, #30 TAB 11 Refills 09/24/24 Choline Fenofibrate (FENOFIBRIC ACID DR) 135 Mg Cap, 135 MG OR, CAP 09/24/24 Levothyroxine Sodium (Levothyroxine Sodium) 112 Mcg Tab, 112 MCG PO QAM for 30 Days, MCG 09/24/24 Past Medical History Others Past medical history includes morbid obesity, atrial fibrillation, anemia, CKD, hypothyroidism, depression, GERD, hyperlipidemia, diverticulosis, moderate aortic stenosis and heart failure. She was recently in the hospital. Encephalopathy/sepsis. She was recently treated for urosepsis Patient Family History: Patient reports no known family medical history. Review of Systems All Other Systems As the patient is confused, she can not provide review of systems/social h istory/family history H&P Exam Vital Signs Vital Signs Date Time Temp Pulse Resp B/P (MAP) Pulse Ox O2 Delivery O2 Flow Rate FiO2 10/09/24 06:00 98.4 67 16 98 98.4 10/08/24 22:42 141/82 (101) 10/08/24 20:25 Nasal Cannula* 2 28 General Appeara: Well developed, Obese Eye Exam: bilateral eye PERRL Mouth: Normal Inspection Pulmonary/Respiratory: Rhonci Cardiovascular/Chest: Systolic murmur, Irregularly irregular Peripheral Pulses: 2+ carotid (R), 2+ carotid (L), 2+ femoral (R), 2+ femoral (L), 2+ dorsalis pedis (R), 2+ dorsalis pedis (L), 2+ Radial (R), 2+ Radial (L) Abdominal Exam: Normal bowel sounds, Soft Labs/Xrays Labs Test 10/08/24 22:49 10/08/24 22:00 10/08/24 19:50 Range/Units Troponin I High Sensitivity 12 </=34 ng/L Urine Color Yellow Yellow Urine Clarity Turbid H Clear Urine pH 5.5 5.0-9.0 Urine Specific [place] 1.023 1.001-1.035 Urine Protein Trace H Negative Urine Ketones Trace Negative Urine Blood Negative Negative /uL Urine Nitrite Negative Negative Urine Bilirubin Negative Negative Urine Urobilinogen Normal Negative mg/dL Urine Leukocyte Esterase 1+ Negative /uL Urine RBC <1 0 - 4 /hpf Urine Microscopic WBC 13 H 0-5 /HPF Urine Squamous Epithelial Cells Few <5 /hpf Urine Calcium Oxalate Crystals Few None Seen Urine Bacteria Few H None Seen /hpf Urine Hyaline Casts Mod 0 - 2 /lpf Urine Mucus Few None Seen Urine Glucose Normal Normal mg/dL White Blood Count 3.7 L 4.4-10.8 10^3/uL Red Blood Count 4.19 4.0-5.20 10^6/uL Hemoglobin 10.2 L 12.2-16.2 g/dL Hematocrit 34.7 L 36.0-46.0 % Mean Corpuscular Volume 82.6 80.0-100.0 fL Mean Corpuscular Hemoglobin 24.2 L 28.0-32.0 pg Mean Corpuscular Hemoglobin Concent 29.3 L 32.0-36.0 g/dL Red Cell Distribution Width 33.9 H 11.8-14.3 % Platelet Count 162 140-450 10^3/uL Mean Platelet Volume 8.2 6.9-10.8 fL Neutrophils (%) (Auto) 37.0-80.0 % Lymphocytes (%) (Auto) 10.0-50.0 % Monocytes (%) (Auto) 0.0-12.0 % Basophils (%) (Auto) 0.0-2.0 % Neutrophils # (Auto) 1.6-8.6 10 ^3/uL Lymphocytes # (Auto) 0.4-5.4 10 ^3/uL Monocytes # (Auto) 0-1.3 10 ^3/uL Differential Total Cells Counted 100.0 100 Neutrophils % (Manual) 64 37.0-80.0 Band Neutrophils % (Manual) 0 Lymphocytes % (Manual) 17 10.0-50.0 Monocytes % (Manual) 18 H 0-12 Eosinophils % (Manual) 1 0-7 Basophils % (Manual) 0 0.0-2.0 Metamyelocytes % (manual) 0 Myelocytes % (Manual) 0 Promyelocytes % (Manual) 0 Blast Cells % (Manual) 0 Reactive Lymphocytes 0 Platelet Estimate Adequate Hypochromasia (manual) Slight Anisocytosis (manual) Marked Target Cells Many Stomatocytes Few Prothrombin Time 15.7 H 9.3-11.8 sec Prothrombin Time INR 1.55 H 0.9-1.15 Activated Partial Thromboplast Time 36.2 H 24.5-34.5 SEC Sodium Level 149 H 136-145 mmol/L Potassium Level 4.2 3.5-5.1 mmol/L Chloride Level 103 98-107 mmol/L Carbon Dioxide Level > 40 *H 20-31 mmol/L Anion Gap 5.57222 5-15 Blood Urea Nitrogen 10 9-23 mg/dL Creatinine 0.69 0.550-1.02 mg/dL Glomerular Filtration Rate Calc 89 >90 mL/min BUN/Creatinine Ratio 14.5 10.0-20.0 Serum Glucose 97 74-106 mg/dL Lactic Acid Level 2.0 0.4-2.0 mmol/L Calcium Level 9.2 8.7-10.4 mg/dL Assessment/Plan Plan Patient is a 79 year old female who was transferred from [facility]. She was transferred for nosebleed. Does have old history of atrial fibrillation and is on Xarelto as outpatient. She is confused and not source of history. Cardiology was involved for cardiac aspects of care and questioning if the anticoagulation needs to be continued. It seems that the patient was recently in the hospital with encephalopathy/sepsis. Information was obtained by reviewing the chart and communicating with staff. There is no report of chest pain. There is no report of hypotension. Obese lady. Lying flat in bed. Not in acute distress. No active nosebleed at the time of evaluation. Mucosa is pink and wet. Not using accessory muscles of breathing. Scattered rhonchi in the lungs is heard. No rales. Cardiac: Irregular, no thrill. Systolic murmur 2/6 in the apex is heard. Abdomen is soft. There is no gross mass/hepatomegaly. Extremities reveal 1+ edema bilaterally. Past medical history includes morbid obesity, atrial fibrillation, anemia, CKD, hypothyroidism, depression, GERD, hyperlipidemia, diverticulosis, moderate aortic stenosis and heart failure. She was recently in the hospital. Encephalopathy/sepsis. She was recently treated for urosepsis. Echocardiogram of September 24, 2024 had revealed ejection fraction of 40-45%, moderate aortic stenosis and mild tricuspid regurgitation. Hemoglobin: 10.2 Creatinine: 0.69 Potassium: 4.2 Troponin (high sensitive): Chest x-ray reported: IMPRESSION: 1. Bilateral perihilar infiltrates with involvement of the right upper lobe and left lower lobe. EKG revealed atrial fibrillation with moderate ventricular response Tele reveals atrial fibrillation with moderate ventricular response Patient is a 79-year-old female who presented with nosebleed. It seems that the nosebleed has been mostly secondary to patient's probing on it (as per nurse). Does have baseline history of atrial fibrillation and heart failure. Recognizing comorbidities, CHADS-VASc score is high and long-term full anticoagulation is advised to prevent CVA and embolic problems. At this point, as the patient was having nosebleed, you can hold anticoagulation. Patient is somewhat confused and encephalopathy can be considered. Nosebleed Atrial fibrillation, chronic Heart failure, diastolic Valvular heart disease Moderate aortic stenosis Encephalopathy Morbid obesity Hypothyroidism Hyperlipidemia Cardiac suggestion for management: Manage on telemetry Follow-up electrolytes and kidney function tests and correct abnormalities Long-term continuation of anticoagulation is advised. Presently, you can hold anticoagulation until resolution of the nosebleed Guideline directed medical therapy for systolic heart failure is advised Consider Entresto at this point Imaging of the brain (CT of the head) is advised Neurology evaluation for encephalopathy is suggested Request for TSH Further evaluation and management depends on the above and clinical course Thank you for consultation A total of 75 minutes was spent reviewing the patient record, examining the patient, making a diagnostic and therapeutic plan, discussing this plan with medical personnel, following up on diagnostic studies and following the patient for clinical stability excluding any and all procedures. At least 50% of this time was spent in direct, [id number] contact. Thank you for allowing me to participate in this patient's care. Further recommendations will depend on patient's clinical course. Please do not hesitate to contact me if you have any questions or concerns. This medical document was created using electronic medical record system with [employer] dictation system. Although this document has been carefully reviewed, there may still be some phonetic and typographical errors. These areas are purely typographical due to the imperfection of the software programs, and do not reflect any compromise in the patient's medical care. Plan discussed with: Other (nurse) BRETT PROCTOR MD October 09, 2024 07:11
[2024-10-09 07:16] LABS: Basophils # (auto) 0 10 ^3/uL (0-0.2); Eosinophils # (auto) 0.1 10 ^3/uL (0-0.8); Hemoglobin 9.4 g/dL (12.2-16.2); Lymphocytes # (auto) 0.6 10 ^3/uL (0.4-5.4); Mean Corpuscular Hemoglobin 24.1 pg (28.0-32.0); Monocytes # (auto) 0.6 10 ^3/uL (0-1.3); Neutrophils # (auto) 2.1 10 ^3/uL (1.6-8.6); Nucleated Red Blood Cells % 0.2 %
[2024-10-09 07:22] LABS: Basophils % (auto) 0.9 % (0.0-2.0); Eosinophils % (auto) 1.9 % (0.0-7.0); Hematocrit 31.4 % (36.0-46.0); Lymphocytes % (auto) 18.6 % (10.0-50.0); Mean Corpuscular Volume 80.4 fL (80.0-100.0); Monocytes % (auto) 17.7 % (0.0-12.0); Neutrophils % (auto) 60.9 % (37.0-80.0); Platelet Count (auto) 131 10^3/uL (140-450); Red Cell Distribution Width 34.4 % (11.8-14.3); White Blood Cell 3.4 10^3/uL (4.4-10.8)
[2024-10-09 07:32] LABS: Alanine Aminotransferase 18 U/L (7-40); Alkaline Phosphatase 75 U/L (46-116); BUN/Creatinine Ratio 16.1 (10.0-20.0); Blood Urea Nitrogen 10 mg/dL (9-23); Chloride 103 mmol/L (98-107); Glucose 75 mg/dL (74-106); Potassium 4.1 mmol/L (3.5-5.1)
[2024-10-09 07:43] LABS: Albumin 2.6 g/dL (3.2-4.8); Anion Gap 5.99999 (5-15); Aspartate Aminotransferase 53 U/L (13-40); Bilirubin, Total 1.3 mg/dL (0.2-1.0); Calcium 8.2 mg/dL (8.7-10.4); Sodium 149 mmol/L (136-145)
[2024-10-09 07:49] LABS: Carbon Dioxide > 40 mmol/L (20-31)
[2024-10-09 08:18] LABS: Anisocytosis Marked; Hypochromia Slight; Platelet Estimate Decreased
[2024-10-09 08:19] LABS: Stomatocytes Moderate
[2024-10-09 08:21] LABS: Target Cell MANY
--- NOTE | 2024-10-09 09:01 | DVH ---
CT HEAD WITHOUT CONTRAST INDICATION: ALOC : 79 old Female ALOC EXAM DATE: 10/09/2024 08:21 AM COMPARISON: CT HEAD WITHOUT CONTRAST on DOS: 09/23/24 RADIATION DOSE: CTDIvol: 47 mGy, DLP: 1010 mGy*cm PROCEDURE: CT scans of the head were obtained from the vertex to the skull base. Sagittal and coronal reconstructions were provided. All CT scans at this medical facility are performed using dose modulation techniques as appropriate t o a performed exam including the following: Automated exposure control was utilized; adjustment of th e MA and/or KV according to patient size; and use of iterative reconstruction technique. FINDINGS: There is sulcal and ventricular prominence. The brainshows normal morphology and martin-whi te matter differentiation, without intracranial hemorrhage, extra-axial fluid collection, mass effect or acute large vessel infarct. The ventricles are normal in size. The basal cisterns are patent. The skull and visible facial bones are intact. The paranasal sinuses, mastoid air cells and middle ear c avities are well-aerated. The soft tissues of the scalp are unremarkable. IMPRESSION: No acute intracranial abnormality.
[2024-10-09] MEDS: SACUBITRIL-VALSARTAN 24mg/26mg TAB PO SCH (10:00)
[2024-10-09] MEDS ORDERED: ENOXAPARIN SOD 100 MG/1 ML SYRINGE SC SCH (10:00)
--- NOTE | 2024-10-09 11:01 | DVHPN2 ---
Progress Note - Dictate Date Seen: October 09, 2024 Medical Necessity Reason Pt with a Central, PICC or Fol: No vital signs Vital Sign Date Time Temp Pulse Resp B/P (MAP) Pulse Ox O2 Delivery O2 Flow Rate FiO2 10/09/24 10:00 63 16 96 10/09/24 07:30 Nasal Cannula* 2 28 10/09/24 07:30 96.8 96.8 10/08/24 22:42 141/82 (101) medications Current Medications Medications Dose Ordered Sig/Rj Route Start Time Stop Time Status Last Admin Dose Admin Acetaminophen 325 mg Q4HP PRN PO 10/08/24 22:30 Acetaminophen/ Hydrocodone Bitart 1 tab Q4HP PRN PO 10/08/24 22:30 10/09/24 00:48 1 TAB Ondansetron HCl 4 mg Q4HP PRN IV 10/08/24 22:30 Nitroglycerin 0.4 mg Q5MINP PRN SL 10/08/24 22:30 Morphine Sulfate 2 mg Q30M PRN IV 10/08/24 22:30 Haloperidol Lactate 5 mg [id number] PRN IM 10/09/24 04:15 Sacubitril/ Valsartan 1 tab BID PO 10/09/24 10:00 UNV Enoxaparin Sodium 120 mg DAILY SC 10/09/24 10:00 UNV Digoxin 0.125 mg DAILY@LUNCH PO 10/09/24 12:00 UNV Levothyroxine Sodium 112 mcg QAM PO 10/10/24 07:00 UNV objective General Appearance: alert, no distress HEENT: EOMI, PERRLA, normal external inspect of ears, no icterus, no nasal drainage Neck: no carotid bruit, no jugular venous distention (JVD), no lymphadenopathy Chest: normal thorax Respiratory: clear to auscultation, normal air movement Cardiovascular: regular rate and rhythm, no diastolic murmur, no jugular venous distention (JVD), no rub, no systolic murmur Abdominal: soft, no hepatomegaly, no mass, no splenomegaly, no tenderness Genitourinary: grossly normal external Musculoskeletal: no joint tenderness, no swelling Extremities: normal pulses, no calf tenderness, no clubbing, no cyanosis, no edema Skin: no bruising, no jaundice, no rash Neurological: alert, No focal deficit laboratory and microbiology Laboratory Tests 10/09/24 06:58 Test 10/09/24 06:58 Range/Units Serum Glucose 75 74-106 mg/dL Problem List 1. Acute hypoxic respiratory failure Supplemental O2 2. Acute blood loss from epistaxis Medication, monitoring 3. Hypernatremia Medication, monitoring 4. PNA Medication, monitoring 5. Persistent atrial fibrillation Monitor EKG 6. Chronic anticoagulation on Xarelto Monitoring 7. Recent history of sepsis due to UTI with MDRO Repeat urinalysis 8. hyperbilirubinemia CMP Assessment/Plan Subjective: Patient is awake and alert. Objective: Patient was recently admitted for sepsis due to UTI. On this admission, patient was found to have community-acquired pneumonia. Patient is chronically anticoagulated with Xarelto and developed epistaxis, for which she came to the emergency room. She experienced acute hypoxic respiratory failure, most likely related to pneumonia and epistaxis. She is now on 2L nasal cannula. Plan: Continue MedNeb treatments and IV antibiotics. Wean off O2 as tolerated. Pulmonary consult. Plan discussed with: Patient, Other PARK MORTON NP October 09, 2024 11:01
[2024-10-09] MEDS: cefTRIAXone 1GM/50ML D5W 50 ML IV SCH (11:31)
[2024-10-09] MEDS: diphenhdrAMINE HCL 50 MG/1 ML VL ONE (11:58)
[2024-10-09] MEDS: diphenhdrAMINE HCL 50 MG/1 ML VL IV ONE (11:59)
[2024-10-09] MEDS: DIGOXIN 0.125 MG TAB PO SCH (12:00)
[2024-10-09] MEDS: AZITHROMYCIN 500MG/ 250ML 250 ML IV SCH (12:00)
[2024-10-09] MEDS: IPRATROPIUM BROM 0.5 MG/2.5ML INH SOL NEB SCH (12:00)
[2024-10-09] MEDS: HALOPERIDOL LACTATE 5 MG/ML INJ VIAL IM PRN (12:20)
[2024-10-09] MEDS: ENOXAPARIN SOD 120 MG/0.8 ML SYRINGE SC SCH (22:00)
[2024-10-10] VITALS (14 sets, daily range): BP systolic 84–102; BP diastolic 33–67; PULSE 63–80; RESP 16–20; TEMP 97.7–97.9; O2SAT 93–100
[2024-10-10] MEDS: ALBUTEROL SULF 2.5 MG/0.5ML(0.5%) NEB SOLN NEB PRN (06:26)
[2024-10-10] MEDS: LEVOTHYROXINE SODIUM 112 MCG TAB PO SCH (06:32)
--- NOTE | 2024-10-10 11:08 | DVHPN2 ---
Progress Note - Dictate Date Seen: October 10, 2024 Medical Necessity Reason Pt with a Central, PICC or Fol: No vital signs Vital Sign Date Time Temp Pulse Resp B/P (MAP) Pulse Ox O2 Delivery O2 Flow Rate FiO2 10/10/24 06:37 74 18 100 10/10/24 06:33 Nasal Cannula* 2 28 10/09/24 21:00 117/74 (88) 10/09/24 17:30 97.7 97.7 Total Intake and Output 10/09/24 10/09/24 10/10/24 15:00 23:00 07:00 Intake Total 600 ml Output Total 450 ml 175 ml Balance -450 ml 425 ml medications Current Medications Medications Dose Ordered Sig/Rj Route Start Time Stop Time Status Last Admin Dose Admin Acetaminophen 325 mg Q4HP PRN PO 10/08/24 22:30 Acetaminophen/ Hydrocodone Bitart 1 tab Q4HP PRN PO 10/08/24 22:30 10/09/24 13:39 1 TAB Ondansetron HCl 4 mg Q4HP PRN IV 10/08/24 22:30 Nitroglycerin 0.4 mg Q5MINP PRN SL 10/08/24 22:30 Morphine Sulfate 2 mg Q30M PRN IV 10/08/24 22:30 Haloperidol Lactate 5 mg [id number] PRN IM 10/09/24 04:15 10/09/24 12:20 5 MG Sacubitril/ Valsartan 1 tab BID PO 10/09/24 10:00 10/10/24 09:38 1 TAB Enoxaparin Sodium 120 mg DAILY SC 10/09/24 10:00 UNV Digoxin 0.125 mg DAILY@LUNCH PO 10/09/24 12:00 Levothyroxine Sodium 112 mcg QAM PO 10/10/24 07:00 Azithromycin 250 ml @ 125 mls/hr DAILY IV 10/09/24 12:00 10/10/24 09:38 125 MLS/HR Ceftriaxone Sodium 50 ml @ 100 mls/hr DAILY@09 IV 10/09/24 11:00 10/10/24 09:38 100 MLS/HR Ipratropium [place] 0.5 mg Q6HWA NEB 10/09/24 12:00 10/10/24 06:26 0.5 MG Albuterol 2.5 mg Q6HPRN PRN NEB 10/09/24 11:00 10/10/24 06:26 2.5 MG Apixaban 5 mg BID PO 10/10/24 22:00 UNV objective General Appearance: alert, no distress HEENT: EOMI, PERRLA, normal external inspect of ears, no icterus, no nasal drainage Neck: no carotid bruit, no jugular venous distention (JVD), no lymphadenopathy Chest: normal thorax Respiratory: clear to auscultation, normal air movement Cardiovascular: regular rate and rhythm, no diastolic murmur, no jugular venous distention (JVD), no rub, no systolic murmur Abdominal: soft, no hepatomegaly, no mass, no splenomegaly, no tenderness Genitourinary: grossly normal external Musculoskeletal: no joint tenderness, no swelling Extremities: normal pulses, no calf tenderness, no clubbing, no cyanosis, no edema Skin: no bruising, no jaundice, no rash Neurological: alert, No focal deficit laboratory and microbiology Laboratory Tests 10/09/24 06:58 Test 10/09/24 06:58 Range/Units Serum Glucose 75 74-106 mg/dL Problem List 1. Acute hypoxic respiratory failure Supplemental O2 2. Acute blood loss from epistaxis Medication, monitoring 3. Hypernatremia Medication, monitoring 4. PNA Medication, monitoring 5. Persistent atrial fibrillation Monitor EKG 6. Chronic anticoagulation on Xarelto Monitoring 7. Recent history of sepsis due to UTI with MDRO Repeat urinalysis 8. hyperbilirubinemia CMP Assessment/Plan Subjective: Patient is awake and alert. Objective: Patient was admitted from [facility]. Patient was recently here for sepsis. Patient was found to have community acquired pneumonia. Patient had acute hypoxic respiratory failure. Patient had epistaxis; however, hemoglobin today is stable. Patient was on chronic anticoagulation with Xarelto for atrial fibrillation. Platelet count is down trending. TSH is elevated. Patient is currently on Synthroid.I did update patient's daughter, Sara, in regards to plan of care. Patient's recently , and his is scheduled for the of this month. Family is hoping [facility] prior to that so arrangements can be made for patient to attend. Plan: Wean off O2, continue breathing treatments, continue IV antibiotics, switch Xarelto to Eliquis for now, monitor platelet count, physical therapy evaluation. Plan discussed with: Patient, Other PARK MORTON NP October 10, 2024 11:08
[2024-10-10] MEDS: D5W/SOD CHL 0.45% 1,000 ML IV ONE (12:19)
--- NOTE | 2024-10-10 14:38 | DVHINCON2 ---
Date of service: October 09, [address] Nix Reason for Consultation Acute respiratory failure History of Present Illness History Source: Patient, RN Notes, MD Notes Exam Limitations: Clinical condition HPI Patient is a 79-year old lady with a history of frequent UTI, afib on Xarelto, cardiomyopathy and congestive heart failure who presented with worsening altered mental status and nosebleed. Was seen in the emergency room where she was found to be hypoxemic and was admitted for further workup. Chest x-ray findings were consistent with pneumonia and pulmonology was consulted to assist in management. Home Meds Reported Medications Ipratropium-Albuterol (COMBIVENT RESPIMAT) Respimat Aer, 1 IN, AER 09/24/24 Budesonide-Formoterol Fumarate (Breyna 160-4.5 Mcg/Act) 1 Aer Aer, 1 AER IN, AER 09/24/24 Magnesium Hydroxide (Milk Of Magnesia) 400 Mg/5 Ml Mckayla, 400 MG PO, ML 09/24/24 Bisacodyl (Dulcolax) 10 Mg Sup, 70 MG RE, SUPP 09/24/24 Digoxin (Digoxin) 125 Mcg Tab, 125 MCG PO, TAB 09/24/24 Meloxicam (Meloxicam) 7.5 Mg Tab, 1 TAB PO DAILY, #30 TAB 2 Refills 09/24/24 Cranberry Extract (CRANBERRY) 600 Mg Tab, 600 MG OR, TAB 09/24/24 Flaxseed (Linseed) (Flax Seed Oil 1000 mg) 1 Cap Cap, 1 CAP PO, CAP 09/24/24 [place]-3 Fatty Acids (FISH OIL) 1,000 Mg Cap, 1000 MG PO, CAP 09/24/24 Ascorbic Acid (Acerola C 500) 500 Mg Waf, 500 MG PO, MISC 09/24/24 Calcium Carbonate-Cholecalcife (Calcium 500 + D 500-200 mg-Unit) 1 Tab Tab, 1 TAB PO, TAB 09/24/24 Acetazolamide (Acetazolamide) 250 Mg Tab, 500 MG PO Q6HR for 30 Days, MG 0 Refills 09/24/24 Cyanocobalamin (B-12) 1,000 Mcg Lory, 1000 MCG PO, LORY 09/24/24 Valerian Extract (Valerian Root) 500 Mg Cap, 500 MG PO, CAP 09/24/24 Coenzyme Q10 (Ubidecarenone) (COQ-10) 400 Mg Cap, 300 MG OR, CAP 09/24/24 Lorazepam (Lorazepam) 1 Mg Tab, 1 MG PO, TAB 09/24/24 Potassium Chloride (POTASSIUM CHLORIDE CR) 10 Meq Tb, 10 MEQ PO, TAB 09/24/24 Furosemide (Furosemide) 20 Mg Tab, 20 MG PO DAILY for 30 Days, MG 09/24/24 Rivaroxaban (XARELTO) 20 Mg Tab, 1 TAB PO DAILY, #30 TAB 11 Refills 09/24/24 Choline Fenofibrate (FENOFIBRIC ACID DR) 135 Mg Cap, 135 MG OR, CAP 09/24/24 Levothyroxine Sodium (Levothyroxine Sodium) 112 Mcg Tab, 112 MCG PO QAM for 30 Days, MCG 09/24/24 Past Medical History Cardiac: AFIB Pulmonary: No pertinent Hx Central Nervous System: No pertinent Hx GI: No pertinent Hx Hemotology/Oncology: No pertinent Hx Hepatobiliary: No pertinent Hx Psychiatric: No pertinent Hx Musculoskeletal: No pertinent Hx Rheumotologic: No pertinent Hx Infectious Disease: No peritnent Hx ENT: No pertinent Hx Renal/: No pertinent Hx Endocrine: No pertinent Hx Dermatology: No pertinent Hx Others Past medical history includes morbid obesity, atrial fibrillation, anemia, CKD, hypothyroidism, depression, GERD, hyperlipidemia, diverticulosis, moderate aortic stenosis and heart failure. She was recently in the hospital. Encephalopathy/sepsis. She was recently treated for urosepsis Past Surgical History: No pertinent Hx Family History: No pertinent Hx Patient Family History: Patient reports no known family medical history. Smoker: No Hx (Negative) Alocohol: None Drugs: None Lives with: Detention Domestic Violence: Neg Review of Systems Constitutional: No symptom reported Ears, Nose, & Throat: No symptom reported Eyes: No symptom reported Pulmonary/Respiratory: No symptom reported Cardiovascular: No symptom reported Gastrointestinal: No symptom reported Genitourinary: No symptom reported Musculoskeletal: No symptom reported Skin: No symptom reported Psychiatric: No symptom reported Endocrine: No symptom reported Hemotologic/Lymphatic: No symptom reported H&P Exam Vital Signs Vital Signs Date Time Temp Pulse Resp B/P (MAP) Pulse Ox O2 Delivery O2 Flow Rate FiO2 10/10/24 13:00 97.7 80 20 87/37 (54) 93 97.7 10/10/24 12:13 Nasal Cannula* 3 32 Labs/Xrays Labs Test 10/10/24 12:00 10/09/24 06:58 10/08/24 22:49 10/08/24 22:00 Range/Units B-Type Natriuretic Peptide 449.34 0-100 pg/mL White Blood Count 3.4 L 4.4-10.8 10^3/uL Red Blood Count 3.90 L 4.0-5.20 10^6/uL Hemoglobin 9.4 L 12.2-16.2 g/dL Hematocrit 31.4 L 36.0-46.0 % Mean Corpuscular Volume 80.4 80.0-100.0 fL Mean Corpuscular Hemoglobin 24.1 L 28.0-32.0 pg Mean Corpuscular Hemoglobin Concent 30.0 L 32.0-36.0 g/dL Red Cell Distribution Width 34.4 H 11.8-14.3 % Platelet Count 131 L 140-450 10^3/uL Mean Platelet Volume 8.3 6.9-10.8 fL Neutrophils (%) (Auto) 60.9 37.0-80.0 % Lymphocytes (%) (Auto) 18.6 10.0-50.0 % Monocytes (%) (Auto) 17.7 H 0.0-12.0 % Eosinophils (%) (Auto) 1.9 0.0-7.0 % Basophils (%) (Auto) 0.9 0.0-2.0 % Neutrophils # (Auto) 2.1 1.6-8.6 10 ^3/uL Lymphocytes # (Auto) 0.6 0.4-5.4 10 ^3/uL Monocytes # (Auto) 0.6 0-1.3 10 ^3/uL Eosinophils # (Auto) 0.1 0-0.8 10 ^3/uL Basophils # (Auto) 0 0-0.2 10 ^3/uL Nucleated Red Blood Cells 0.2 % Platelet Estimate Decreased Hypochromasia (manual) Slight Poikilocytosis (manual) Moderate Anisocytosis (manual) Marked Target Cells Many Stomatocytes Moderate Schistocytes Few Sodium Level 149 H 136-145 mmol/L Potassium Level 4.1 3.5-5.1 mmol/L Chloride Level 103 98-107 mmol/L Carbon Dioxide Level > 40 *H 20-31 mmol/L Anion Gap 5.42784 5-15 Blood Urea Nitrogen 10 9-23 mg/dL Creatinine 0.62 0.550-1.02 mg/dL Glomerular Filtration Rate Calc 92 >90 mL/min BUN/Creatinine Ratio 16.1 10.0-20.0 Serum Glucose 75 74-106 mg/dL Calcium Level 8.2 L 8.7-10.4 mg/dL Total Bilirubin 1.3 H 0.2-1.0 mg/dL Aspartate Amino Transferase (AST) 53 H 13-40 U/L Alanine Aminotransferase (ALT) 18 7-40 U/L Alkaline Phosphatase 75 46-116 U/L Total Protein 5.0 L 5.7-8.2 g/dL Albumin 2.6 L 3.2-4.8 g/dL Thyroid Stimulating Hormone (TSH) 26.49 H 0.55-4.78 uIU/mL Troponin I High Sensitivity 12 </=34 ng/L Urine Color Yellow Yellow Urine Clarity Turbid H Clear Urine pH 5.5 5.0-9.0 Urine Specific [place] 1.023 1.001-1.035 Urine Protein Trace H Negative Urine Ketones Trace Negative Urine Blood Negative Negative /uL Urine Nitrite Negative Negative Urine Bilirubin Negative Negative Urine Urobilinogen Normal Negative mg/dL Urine Leukocyte Esterase 1+ Negative /uL Urine RBC <1 0 - 4 /hpf Urine Microscopic WBC 13 H 0-5 /HPF Urine Squamous Epithelial Cells Few <5 /hpf Urine Calcium Oxalate Crystals Few None Seen Urine Bacteria Few H None Seen /hpf Urine Hyaline Casts Mod 0 - 2 /lpf Urine Mucus Few None Seen Urine Glucose Normal Normal mg/dL Test 10/08/24 19:50 Range/Units Differential Total Cells Counted 100.0 100 Neutrophils % (Manual) 64 37.0-80.0 Band Neutrophils % (Manual) 0 Lymphocytes % (Manual) 17 10.0-50.0 Monocytes % (Manual) 18 H 0-12 Eosinophils % (Manual) 1 0-7 Basophils % (Manual) 0 0.0-2.0 Metamyelocytes % (manual) 0 Myelocytes % (Manual) 0 Promyelocytes % (Manual) 0 Blast Cells % (Manual) 0 Reactive Lymphocytes 0 Prothrombin Time 15.7 H 9.3-11.8 sec Prothrombin Time INR 1.55 H 0.9-1.15 Activated Partial Thromboplast Time 36.2 H 24.5-34.5 SEC Lactic Acid Level 2.0 0.4-2.0 mmol/L Microbiology Date/Time Source Procedure Growth Status 10/08/24 19:50 Blood Blood Culture - Preliminary NO GROWTH AFTER 24 HOURS OF INCUBATION. Resulted Assessment/Plan Plan Impression Acute hypoxemic respiratory failure Altered mental status Pneumonia Nosebleeds Patient seen and examined Events Low oxygen requirements On 2 liters nasal cannula Vital signs stable Labs and imaging reviewed Chest x-ray shows infiltrates consistent with pneumonia Management Supplemental oxygen Titrate to maintain sats 90% or above Incentive spirometry Antibiotics Bronchodilators Monitor renal function Monitor electrolytes Supplement as needed Mechanical DVT prophylaxis Plan discussed with: Patient OLIVER MCGEE MD October 10, 2024 14:38
--- NOTE | 2024-10-10 14:39 | DVHPN2 ---
Progress Note - Dictate Date Seen: October 10, 2024 Medical Necessity Reason Pt with a Central, PICC or Fol: No vital signs Vital Sign Date Time Temp Pulse Resp B/P (MAP) Pulse Ox O2 Delivery O2 Flow Rate FiO2 10/10/24 13:00 97.7 80 20 87/37 (54) 93 97.7 10/10/24 12:13 Nasal Cannula* 3 32 Total Intake and Output 10/09/24 10/09/24 10/10/24 15:00 23:00 07:00 Intake Total 600 ml Output Total 450 ml 175 ml Balance -450 ml 425 ml medications Current Medications Medications Dose Ordered Sig/Rj Route Start Time Stop Time Status Last Admin Dose Admin Acetaminophen 325 mg Q4HP PRN PO 10/08/24 22:30 Acetaminophen/ Hydrocodone Bitart 1 tab Q4HP PRN PO 10/08/24 22:30 10/09/24 13:39 1 TAB Ondansetron HCl 4 mg Q4HP PRN IV 10/08/24 22:30 Nitroglycerin 0.4 mg Q5MINP PRN SL 10/08/24 22:30 Morphine Sulfate 2 mg Q30M PRN IV 10/08/24 22:30 Haloperidol Lactate 5 mg [id number] PRN IM 10/09/24 04:15 10/09/24 12:20 5 MG Sacubitril/ Valsartan 1 tab BID PO 10/09/24 10:00 10/10/24 09:38 1 TAB Enoxaparin Sodium 120 mg DAILY SC 10/09/24 10:00 UNV Digoxin 0.125 mg DAILY@LUNCH PO 10/09/24 12:00 10/10/24 12:18 0.125 MG Levothyroxine Sodium 112 mcg QAM PO 10/10/24 07:00 Azithromycin 250 ml @ 125 mls/hr DAILY IV 10/09/24 12:00 10/10/24 09:38 125 MLS/HR Ceftriaxone Sodium 50 ml @ 100 mls/hr DAILY@09 IV 10/09/24 11:00 10/10/24 09:38 100 MLS/HR Ipratropium [place] 0.5 mg Q6HWA NEB 10/09/24 12:00 10/10/24 12:07 0.5 MG Albuterol 2.5 mg Q6HPRN PRN NEB 10/09/24 11:00 10/10/24 12:07 2.5 MG Apixaban 5 mg BID PO 10/10/24 22:00 laboratory and microbiology Laboratory Tests 10/09/24 06:58 Test 10/09/24 06:58 Range/Units Serum Glucose 75 74-106 mg/dL Assessment/Plan Impression Acute hypoxemic respiratory failure Altered mental status Pneumonia Nosebleeds Patient seen and examined Events Low oxygen requirements On 1 liter nasal cannula No acute events Labs and imaging reviewed Chest x-ray shows infiltrates consistent with pneumonia Management Supplemental oxygen Titrate to maintain sats 90% or above Incentive spirometry Continue antibiotics De-escalate based on cultures Bronchodilators Monitor renal function Monitor electrolytes Supplement as needed Mechanical DVT prophylaxis Dietary Evaluation Review Recommendations by RD: Protein Supplementation Comments: 1) Initiate Ensure Enlive qd. Encourage optimal intake 2) Initiate Pro-Stat @ 30 mL qd. 3) Refer to outpatient RD for weight management 4) Follow-up with cardiology and nephrology 5) Continue to monitor I&O, labs, and skin integrity Expected Outcomes/Goals: 1) appetite and labs to improve 2) wound to improve 3) f/u in 3-5 days Plan discussed with: Patient OLIVER MCGEE MD October 10, 2024 14:39
--- NOTE | 2024-10-10 18:17 | DVHPN2 ---
Progress Note - Dictate Date Seen: October 10, 2024 Medical Necessity Reason Pt with a Central, PICC or Fol: No vital signs Vital Sign Date Time Temp Pulse Resp B/P (MAP) Pulse Ox O2 Delivery O2 Flow Rate FiO2 10/10/24 17:32 97.8 78 19 84/44 (57) 94 97.8 10/10/24 12:13 Nasal Cannula* 3 32 Total Intake and Output 10/09/24 10/09/24 10/10/24 15:00 23:00 07:00 Intake Total 600 ml Output Total 450 ml 175 ml Balance -450 ml 425 ml medications Current Medications Medications Dose Ordered Sig/Rj Route Start Time Stop Time Status Last Admin Dose Admin Acetaminophen 325 mg Q4HP PRN PO 10/08/24 22:30 Acetaminophen/ Hydrocodone Bitart 1 tab Q4HP PRN PO 10/08/24 22:30 10/09/24 13:39 1 TAB Ondansetron HCl 4 mg Q4HP PRN IV 10/08/24 22:30 Nitroglycerin 0.4 mg Q5MINP PRN SL 10/08/24 22:30 Morphine Sulfate 2 mg Q30M PRN IV 10/08/24 22:30 Haloperidol Lactate 5 mg [id number] PRN IM 10/09/24 04:15 10/09/24 12:20 5 MG Sacubitril/ Valsartan 1 tab BID PO 10/09/24 10:00 10/10/24 09:38 1 TAB Enoxaparin Sodium 120 mg DAILY SC 10/09/24 10:00 UNV Digoxin 0.125 mg DAILY@LUNCH PO 10/09/24 12:00 10/10/24 12:18 0.125 MG Levothyroxine Sodium 112 mcg QAM PO 10/10/24 07:00 Azithromycin 250 ml @ 125 mls/hr DAILY IV 10/09/24 12:00 10/10/24 09:38 125 MLS/HR Ceftriaxone Sodium 50 ml @ 100 mls/hr DAILY@09 IV 10/09/24 11:00 10/10/24 09:38 100 MLS/HR Ipratropium [place] 0.5 mg Q6HWA NEB 10/09/24 12:00 10/10/24 12:07 0.5 MG Albuterol 2.5 mg Q6HPRN PRN NEB 10/09/24 11:00 10/10/24 12:07 2.5 MG Apixaban 5 mg BID PO 10/10/24 22:00 objective Physical Exam: Heart: S1 and S2 present. The patient is in sinus rhythm. Lungs: CTAB Abdomen: Benign. Extremities: Distal pulses palpable, 2+. No evidence for peripheral edema CT HEAD WITHOUT CONTRAST INDICATION: ALOC : 79 old Female ALOC EXAM DATE: 10/09/2024 08:21 AM COMPARISON: CT HEAD WITHOUT CONTRAST on DOS: 09/23/24 RADIATION DOSE: CTDIvol: 47 mGy, DLP: 1010 mGy*cm PROCEDURE: CT scans of the head were obtained from the vertex to the skull base. Sagittal and coronal reconstructions were provided. All CT scans at this medical facility are performed using dose modulation techniques as appropriate to a performed exam including the following: Automated exposure control was utilized; adjustment of the MA and/or KV according to patient size; and use of iterative reconstruction technique. FINDINGS: There is sulcal and ventricular prominence. The brainshows normal morphology and martin-white matter differentiation, without intracranial hemorrhage, extra-axial fluid collection, mass effect or acute large vessel infarct. The ventricles are normal in size. The basal cisterns are patent. The skull and visible facial bones are intact. The paranasal sinuses, mastoid air cells and middle ear cavities are well-aerated. The soft tissues of the scalp are unremarkable. IMPRESSION: No acute intracranial abnormality. laboratory and microbiology Laboratory Tests 10/09/24 06:58 Test 10/09/24 06:58 Range/Units Serum Glucose 75 74-106 mg/dL Assessment/Plan Patient is a 79 year old female who was transferred from [facility]. She was transferred for nosebleed. Does have old history of atrial fibrillation and is on Xarelto as outpatient. She is confused and not source of history. Cardiology was involved for cardiac aspects of care and questioning if the anticoagulation needs to be continued. It seems that the patient was recently in the hospital with encephalopathy/sepsis. Information was obtained by reviewing the chart and communicating with staff. There is no report of chest pain. There is no report of hypotension. Obese lady. Lying flat in bed. Not in acute distress. No active nosebleed at the time of evaluation. Mucosa is pink and wet. Not using accessory muscles of breathing. Scattered rhonchi in the lungs is heard. No rales. Cardiac: Irregular, no thrill. Systolic murmur 2/6 in the apex is heard. Abdomen is soft. There is no gross mass/hepatomegaly. Extremities reveal 1+ edema bilaterally. Past medical history includes morbid obesity, atrial fibrillation, anemia, CKD, hypothyroidism, depression, GERD, hyperlipidemia, diverticulosis, moderate aortic stenosis and heart failure. She was recently in the hospital. Encephalopathy/sepsis. She was recently treated for urosepsis. Echocardiogram of September 24, 2024 had revealed ejection fraction of 40-45%, moderate aortic stenosis and mild tricuspid regurgitation. Hemoglobin: 10.2 Creatinine: 0.69 Potassium: 4.2 Troponin (high sensitive): Chest x-ray reported: IMPRESSION: 1. Bilateral perihilar infiltrates with involvement of the right upper lobe and left lower lobe. EKG revealed atrial fibrillation with moderate ventricular response Tele reveals atrial fibrillation with moderate ventricular response Patient is a 79-year-old female who presented with nosebleed. It seems that the nosebleed has been mostly secondary to patient's probing on it (as per nurse). Does have baseline history of atrial fibrillation and heart failure. Recognizing comorbidities, CHADS-VASc score is high and long-term full anticoagulation is advised to prevent CVA and embolic problems. At this point, as the patient was having nosebleed, you can hold anticoagulation. Patient is somewhat confused and encephalopathy can be considered. Epistaxis Atrial fibrillation, chronic Heart failure, diastolic Valvular heart disease Moderate aortic stenosis Encephalopathy Morbid obesity Hypothyroidism Hyperlipidemia Cardiology Recommendations: Proceed with close observation for overt signs of fluid overload Proceed with strict intakes, outputs, and daily weights Proceed with close rate and rhythm surveillance Proceed with close hemodynamic surveillance Proceed with optimized blood pressure control Transfuse to sustain HGB levels above 7.0 Sustain Magnesium level greater than 2.0 Sustain Potassium level greater than 4.0 Follow up renal function and electrolytes Long-term continuation of anticoagulation is advised. Presently, you can hold anticoagulation until resolution of the nosebleed Optimization of guideline directed medical therapy (GDMT) for systolic heart failure is advised Management in Telemetry Follow up Neurology recommendations Will proceed to follow from a cardiac perspective Further recommendations per clinical progression All available labs, EKGs, and images were personally reviewed Patient's status, findings, and plan of care was discussed and reviewed with supervising physician Dr. Scott, who is in agreement with current plan of care. Plan of care discussed with and agreed upon by primary RN. Prognosis: Guarded Thank you for allowing me to participate in the care of this patient. Further recommendations will depend on clinical progression, hospitalist, and other consultants. Will continue to follow with Primary. If you have any questions, please do not hesitate to contact me. A total of 75 minutes was spent reviewing the patient record, examining the patient, making a diagnostic and therapeutic plan, discussing this plan with medical personnel, following up on diagnostic studies and following the patient for clinical stability excluding Dietary Evaluation Review Recommendations by RD: Protein Supplementation Comments: 1) Initiate Ensure Enlive qd. Encourage optimal intake 2) Initiate Pro-Stat @ 30 mL qd. 3) Refer to outpatient RD for weight management 4) Follow-up with cardiology and nephrology 5) Continue to monitor I&O, labs, and skin integrity Expected Outcomes/Goals: 1) appetite and labs to improve 2) wound to improve 3) f/u in 3-5 days Plan discussed with: Other (Nurse) [employer] October 10, 2024 18:17
[2024-10-10] MEDS: APIXABAN 5 MG TAB PO SCH (21:26)
[2024-10-11] VITALS (14 sets, daily range): BP systolic 93–109; BP diastolic 42–55; PULSE 55–86; RESP 16–20; TEMP 97.2–98.1; O2SAT 93–98
[2024-10-11 06:09] LABS: Eosinophils # (auto) 0.1 10 ^3/uL (0-0.8); Monocytes # (auto) 0.5 10 ^3/uL (0-1.3); Platelet Count (auto) 158 10^3/uL (140-450); White Blood Cell 3.8 10^3/uL (4.4-10.8)
[2024-10-11 06:11] LABS: Basophils # (auto) 0.1 10 ^3/uL (0-0.2); Basophils % (auto) 3.9 % (0.0-2.0); Eosinophils % (auto) 3.1 % (0.0-7.0); Hemoglobin 9.8 g/dL (12.2-16.2); Lymphocytes # (auto) 0.6 10 ^3/uL (0.4-5.4); Lymphocytes % (auto) 16.4 % (10.0-50.0); Mean Corpuscular Hemoglobin 25.1 pg (28.0-32.0); Mean Corpuscular Hgb Conc. 30.7 g/dL (32.0-36.0); Mean Corpuscular Volume 81.6 fL (80.0-100.0); Monocytes % (auto) 13.1 % (0.0-12.0); Neutrophils # (auto) 2.4 10 ^3/uL (1.6-8.6); Neutrophils % (auto) 63.5 % (37.0-80.0); Nucleated Red Blood Cells % 1.4 %; Red Blood Cells 3.93 10^6/uL (4.0-5.20); Red Cell Distribution Width 35.6 % (11.8-14.3)
[2024-10-11 06:18] LABS: Alanine Aminotransferase 22 U/L (7-40); Alkaline Phosphatase 59 U/L (46-116); Anion Gap 6 (5-15); BUN/Creatinine Ratio 17.7 (10.0-20.0); Blood Urea Nitrogen 11 mg/dL (9-23); Chloride 102 mmol/L (98-107); Glucose 77 mg/dL (74-106); Potassium 4.7 mmol/L (3.5-5.1); Sodium 142 mmol/L (136-145)
[2024-10-11 06:19] LABS: Bilirubin, Total 1.2 mg/dL (0.2-1.0)
[2024-10-11 06:31] LABS: Albumin 2.1 g/dL (3.2-4.8); Aspartate Aminotransferase 85 U/L (13-40); Calcium 8.6 mg/dL (8.7-10.4); Carbon Dioxide 34 mmol/L (20-31); Magnesium 1.4 mg/dL (1.6-2.6); Phosphorus 1.4 mg/dL (2.4-5.1); Total Protein 4.1 g/dL (5.7-8.2)
[2024-10-11 06:45] LABS: Anisocytosis Marked; Hypochromia Moderate; Platelet Estimate Adequate; Target Cell MANY
--- NOTE | 2024-10-11 07:56 | DVHPN2 ---
Progress Note - Dictate Date Seen: October 11, 2024 Medical Necessity Reason Pt with a Central, PICC or Fol: No vital signs Vital Sign Date Time Temp Pulse Resp B/P (MAP) Pulse Ox O2 Delivery O2 Flow Rate FiO2 10/11/24 06:46 98 Nasal Cannula 2.0 10/11/24 06:46 28 10/11/24 05:00 97.6 70 18 105/51 (69) 97.6 Total Intake and Output 10/10/24 10/10/24 10/11/24 15:00 23:00 07:00 Intake Total 300 ml 950 ml 500 ml Output Total 300 ml 225 ml Balance 300 ml 650 ml 275 ml medications Current Medications Medications Dose Ordered Sig/Rj Route Start Time Stop Time Status Last Admin Dose Admin Acetaminophen 325 mg Q4HP PRN PO 10/08/24 22:30 Acetaminophen/ Hydrocodone Bitart 1 tab Q4HP PRN PO 10/08/24 22:30 10/10/24 21:29 1 TAB Ondansetron HCl 4 mg Q4HP PRN IV 10/08/24 22:30 Nitroglycerin 0.4 mg Q5MINP PRN SL 10/08/24 22:30 Morphine Sulfate 2 mg Q30M PRN IV 10/08/24 22:30 Haloperidol Lactate 5 mg [id number] PRN IM 10/09/24 04:15 10/09/24 12:20 5 MG Sacubitril/ Valsartan 1 tab BID PO 10/09/24 10:00 10/10/24 21:26 1 TAB Enoxaparin Sodium 120 mg DAILY SC 10/09/24 10:00 UNV Digoxin 0.125 mg DAILY@LUNCH PO 10/09/24 12:00 10/10/24 12:18 0.125 MG Levothyroxine Sodium 112 mcg QAM PO 10/10/24 07:00 10/11/24 05:54 112 MCG Azithromycin 250 ml @ 125 mls/hr DAILY IV 10/09/24 12:00 10/10/24 09:38 125 MLS/HR Ceftriaxone Sodium 50 ml @ 100 mls/hr DAILY@09 IV 10/09/24 11:00 10/10/24 09:38 100 MLS/HR Ipratropium [place] 0.5 mg Q6HWA NEB 10/09/24 12:00 10/10/24 12:07 0.5 MG Albuterol 2.5 mg Q6HPRN PRN NEB 10/09/24 11:00 10/10/24 12:07 2.5 MG Apixaban 5 mg BID PO 10/10/24 22:00 10/10/24 21:26 5 MG objective Physical Exam: Heart: S1 and S2 present. The patient is in sinus rhythm. Lungs: CTAB Abdomen: Benign. Extremities: Distal pulses palpable, 2+. Pedal edema +[address] HEAD WITHOUT CONTRAST INDICATION: ALOC : 79 old Female ALOC EXAM DATE: 10/09/2024 08:21 AM COMPARISON: CT HEAD WITHOUT CONTRAST on DOS: 09/23/24 RADIATION DOSE: CTDIvol: 47 mGy, DLP: 1010 mGy*cm PROCEDURE: CT scans of the head were obtained from the vertex to the skull base. Sagittal and coronal reconstructions were provided. All CT scans at this medical facility are performed using dose modulation techniques as appropriate to a performed exam including the following: Automated exposure control was utilized; adjustment of the MA and/or KV according to patient size; and use of iterative reconstruction technique. FINDINGS: There is sulcal and ventricular prominence. The brainshows normal morphology and martin-white matter differentiation, without intracranial hemorrhage, extra-axial fluid collection, mass effect or acute large vessel infarct. The ventricles are normal in size. The basal cisterns are patent. The skull and visible facial bones are intact. The paranasal sinuses, mastoid air cells and middle ear cavities are well-aerated. The soft tissues of the scalp are unremarkable. IMPRESSION: No acute intracranial abnormality. laboratory and microbiology Laboratory Tests 10/11/24 05:31 Test 10/11/24 05:31 Range/Units Serum Glucose 77 74-106 mg/dL Assessment/Plan The patient is a 79-year-old female transferred from [facility] for evaluation of a nosebleed. She has a history of atrial fibrillation and is currently on Xarelto as an outpatient. She was noted to be confused upon presentation, and history is limited due to encephalopathy. Information was obtained through chart review and communication with facility staff. Cardiology was consulted to evaluate the need for continued anticoagulation. There are no reports of chest pain or hypotension. On exam, the patient is obese and lying supine in semi- Barnes�s position. No active epistaxis is observed. Nasal mucosa appears pink and moist. She is not using accessory muscles for respiration. Lungs reveal scattered rhonchi bilaterally. Cardiac exam demonstrates an irregularly irregular rhythm with a 2/6 systolic murmur best heard at the apex. Abdomen is soft without masses or hepatomegaly. Extremities show 1+ bilateral edema. Past medical history includes morbid obesity, atrial fibrillation, anemia, CKD, hypothyroidism, depression, GERD, hyperlipidemia, diverticulosis, moderate aortic stenosis and heart failure. She was recently in the hospital. Encephalopathy/sepsis. She was recently treated for urosepsis. Echocardiogram (09/24/24) had revealed ejection fraction of 40-45%, moderate aortic stenosis and mild tricuspid regurgitation. Hemoglobin: 10.2 Creatinine: 0.69 Potassium: 4.2 Troponin (high sensitive): Chest x-ray reported: IMPRESSION: 1. Bilateral perihilar infiltrates with involvement of the right upper lobe and left lower lobe. EKG revealed atrial fibrillation with moderate ventricular response The patient was seen and examined in telemetry. Telemetry reveals atrial fibrillation with moderate ventricular response. She denies chest pain, shortness of breath, palpitations, paroxysmal nocturnal dyspnea, orthopnea, or dizziness. No other cardiac-related symptoms reported at this time. Patient is a 79-year-old female who presented with nosebleed. It seems that the nosebleed has been mostly secondary to patient's probing on it (as per nurse). Does have baseline history of atrial fibrillation and heart failure. Recognizing comorbidities, CHADS-VASc score is high and long-term full anticoagulation is advised to prevent CVA and embolic problems. At this point, as the patient was having nosebleed, you can hold anticoagulation. Patient is somewhat confused and encephalopathy can be considered. Epistaxis Atrial fibrillation, chronic Heart failure, diastolic Valvular heart disease Moderate aortic stenosis Encephalopathy Morbid obesity Hypothyroidism Hyperlipidemia Cardiology Recommendations: Proceed with close observation for overt signs of fluid overload Proceed with strict intakes, outputs, and daily weights Proceed with close rate and rhythm surveillance Proceed with close hemodynamic surveillance Proceed with optimized blood pressure control Transfuse to sustain HGB levels above 7.0 Sustain Magnesium level greater than 2.0 Sustain Potassium level greater than 4.0 Follow up renal function and electrolytes Long-term continuation of anticoagulation is advised. Presently, you can hold anticoagulation until resolution of the nosebleed Optimization of guideline directed medical therapy (GDMT) for systolic heart failure is advised Management in Telemetry Follow up Neurology recommendations Will proceed to follow from a cardiac perspective Further recommendations per clinical progression All available labs, EKGs, and images were personally reviewed Patient's status, findings, and plan of care was discussed and reviewed with supervising physician Dr. Scott, who is in agreement with current plan of care. Plan of care discussed with and agreed upon by primary RN. Prognosis: Guarded Thank you for allowing me to participate in the care of this patient. Further recommendations will depend on clinical progression, hospitalist, and other consultants. Will continue to follow with Primary. If you have any questions, please do not hesitate to contact me. A total of 75 minutes was spent reviewing the patient record, examining the patient, making a diagnostic and therapeutic plan, discussing this plan with medical personnel, following up on diagnostic studies and following the patient for clinical stability excluding Dietary Evaluation Review Recommendations by RD: Protein Supplementation Comments: 1) Initiate Ensure Enlive qd. Encourage optimal intake 2) Initiate Pro-Stat @ 30 mL qd. 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
--- NOTE | 2024-10-11 11:15 | DVHPN2 ---
Progress Note - Dictate Date Seen: October 11, 2024 Medical Necessity Reason Pt with a Central, PICC or Fol: No vital signs Vital Sign Date Time Temp Pulse Resp B/P (MAP) Pulse Ox O2 Delivery O2 Flow Rate FiO2 10/11/24 10:00 95 Nasal Cannula* 2 28 10/11/24 08:00 70 18 10/11/24 05:00 97.6 105/51 (69) 97.6 Total Intake and Output 10/10/24 10/10/24 10/11/24 15:00 23:00 07:00 Intake Total 300 ml 950 ml 500 ml Output Total 300 ml 225 ml Balance 300 ml 650 ml 275 ml medications Current Medications Medications Dose Ordered Sig/Rj Route Start Time Stop Time Status Last Admin Dose Admin Acetaminophen 325 mg Q4HP PRN PO 10/08/24 22:30 Acetaminophen/ Hydrocodone Bitart 1 tab Q4HP PRN PO 10/08/24 22:30 10/10/24 21:29 1 TAB Ondansetron HCl 4 mg Q4HP PRN IV 10/08/24 22:30 Nitroglycerin 0.4 mg Q5MINP PRN SL 10/08/24 22:30 Morphine Sulfate 2 mg Q30M PRN IV 10/08/24 22:30 Haloperidol Lactate 5 mg [id number] PRN IM 10/09/24 04:15 10/09/24 12:20 5 MG Sacubitril/ Valsartan 1 tab BID PO 10/09/24 10:00 10/11/24 09:21 1 TAB Enoxaparin Sodium 120 mg DAILY SC 10/09/24 10:00 UNV Digoxin 0.125 mg DAILY@LUNCH PO 10/09/24 12:00 10/10/24 12:18 0.125 MG Levothyroxine Sodium 112 mcg QAM PO 10/10/24 07:00 10/11/24 05:54 112 MCG Azithromycin 250 ml @ 125 mls/hr DAILY IV 10/09/24 12:00 10/11/24 09:21 125 MLS/HR Ceftriaxone Sodium 50 ml @ 100 mls/hr DAILY@09 IV 10/09/24 11:00 10/11/24 09:21 100 MLS/HR Ipratropium [place] 0.5 mg Q6HWA NEB 10/09/24 12:00 10/10/24 12:07 0.5 MG Albuterol 2.5 mg Q6HPRN PRN NEB 10/09/24 11:00 10/10/24 12:07 2.5 MG Apixaban 5 mg BID PO 10/10/24 22:00 10/11/24 09:21 5 MG objective General Appearance: alert, no distress HEENT: EOMI, PERRLA, normal external inspect of ears, no icterus, no nasal drainage Neck: no carotid bruit, no jugular venous distention (JVD), no lymphadenopathy Chest: normal thorax Respiratory: clear to auscultation, normal air movement Cardiovascular: regular rate and rhythm, no diastolic murmur, no jugular venous distention (JVD), no rub, no systolic murmur Abdominal: soft, no hepatomegaly, no mass, no splenomegaly, no tenderness Genitourinary: grossly normal external Musculoskeletal: no joint tenderness, no swelling Extremities: normal pulses, no calf tenderness, no clubbing, no cyanosis, no edema Skin: no bruising, no jaundice, no rash Neurological: alert, No focal deficit laboratory and microbiology Laboratory Tests 10/11/24 05:31 Test 10/11/24 05:31 Range/Units Serum Glucose 77 74-106 mg/dL Problem List 1. Acute hypoxic respiratory failure Supplemental O2 2. Acute blood loss from epistaxis Medication, monitoring 3. Hypernatremia Medication, monitoring 4. PNA Medication, monitoring 5. Persistent atrial fibrillation Monitor EKG 6. Chronic anticoagulation on Xarelto Monitoring 7. Recent history of sepsis due to UTI with MDRO Repeat urinalysis 8. hyperbilirubinemia CMP Assessment/Plan Subjective Patient is agitated today. Objective Patient is a max assist per physical therapy. Patient is from a SNF. Patient was admitted for acute hypoxic respiratory failure related to community-acquired pneumonia. Patient had mild blood loss anemia related to epistaxis. Patient is on chronic anticoagulation. Patient is on Xarelto for A-fib. Magnesium is 1.4. Phosphorus is 1.4. Plan Replace electrolytes. Continue Med-Neb treatments. Continue IV antibiotics. Dietary Evaluation Review Recommendations by RD: Protein Supplementation Comments: 1) Initiate Ensure Enlive qd. Encourage optimal intake 2) Initiate Pro-Stat @ 30 mL qd. 3) Refer to outpatient RD for weight management 4) Follow-up with cardiology and nephrology 5) Continue to monitor I&O, labs, and skin integrity Expected Outcomes/Goals: 1) appetite and labs to improve 2) wound to improve 3) f/u in 3-5 days Plan discussed with: Patient, Other [employer] ADMINISTRATOR October 11, 2024 11:15
--- NOTE | 2024-10-11 11:22 | BSKYNEURO ---
[facility] Note # Demographics Consult Type: General Neurology Patient Location: Inpatient First Name: Tuyet Last Name: Tyron Date of : 1945 Age: 79 Gender: Female Facility: [facility] Time of Initial Page (): 10/11/2024 11:07 Time of Return Call (): 10/11/2024 11:07 # HPI History: 79F reportedly had nose bleed while on xarelto. Xarelto being held. Consult placed for altered mental status. Patient reportedly has dementia, and is having confusion during admission. At night she gets worse per RN. # Scores Time of exam and NIHSS (): 10/11/2024 11:14 Level of Consciousness 1a: [0] = Alert; keenly responsive LOC Questions 1b: [2] = Answers neither correctly LOC Commands 1c: [2] = Performs neither correctly Best Gaze 2: [0] = Normal Visual 3: [0] = No visual loss Facial Palsy 4: [0] = Normal symmetrical movements Motor Arm Left 5a: [0] = No drift Motor Arm Right 5b: [0] = No drift Motor Leg Left 6a: [0] = No drift Motor Leg Right 6b: [0] = No drift Limb Ataxia 7: [0] = Absent Sensory 8: [0] = Normal Best Language 9: [0] = No aphasia Dysarthria 10: [0] = Normal Extinction and Inattention 11: [0] = No abnormality NIHSS Total: 4 # Exam Additional Neurologic Exam: Yelling, says, "I'm ", and then says "I want to see my kids". # PMH-FH-SH Past Medical History: - dementia # Data Creatinine: within normal limits Other Labs: pCO2 elevated >40 on CMP, elevated TSH 26.[address] personally read by me (): 10/11/2024 11:[address]: - no bleed - preliminarily reviewed by me, please refer to radiology read for official reading # Assessment Impression: - Altered Mental Status with labs suggesting hypothyroid state. Toxic/metabolic/infectious processes can explain worsening mental status. # Plan Other: - If patient has any neurological deterioration please call me back immediately - I have discussed my recommendations with the referring provider Additional Recommendations: Correct hypothyroid state, medical optimize as able. Seroquel 12.5mg QHS while hospitalized could be considered. Disposition: continue admission # Logistics Attestation of consult completion: The patient is located at: [facility]. Facility staff participated in the visit. I performed this telemedicine visit from my offsite office utilizing interactive 2 way audio and visual telecommunication technology. Consent: Verbal consent was obtained from the patient and/or family for this encounter. Total time spent in telemedicine encounter: I spent 20 minutes reviewing clinical data and/or imaging, obtaining history, examining the patient, communicating with the onsite care team, and in preparation of this report. # Demographics First Name: Tuyet Last Name: Tyron Facility: [facility] Yes MAKAYLA SHOEMAKER MD October 11, 2024 11:22
[2024-10-11] MEDS: MAGNESIUM SULFATE 1GM/100ML 100 ML IV SCH (11:50)
--- NOTE | 2024-10-11 13:54 | DVHPN2 ---
Progress Note - Dictate Date Seen: October 11, 2024 Medical Necessity Reason Pt with a Central, PICC or Fol: No vital signs Vital Sign Date Time Temp Pulse Resp B/P (MAP) Pulse Ox O2 Delivery O2 Flow Rate FiO2 10/11/24 13:08 68 10/11/24 11:30 20 96 10/11/24 11:30 Nasal Cannula* 2 28 10/11/24 05:00 97.6 105/51 (69) 97.6 Total Intake and Output 10/10/24 10/10/24 10/11/24 15:00 23:00 07:00 Intake Total 300 ml 950 ml 500 ml Output Total 300 ml 225 ml Balance 300 ml 650 ml 275 ml medications Current Medications Medications Dose Ordered Sig/Rj Route Start Time Stop Time Status Last Admin Dose Admin Acetaminophen 325 mg Q4HP PRN PO 10/08/24 22:30 Acetaminophen/ Hydrocodone Bitart 1 tab Q4HP PRN PO 10/08/24 22:30 10/10/24 21:29 1 TAB Ondansetron HCl 4 mg Q4HP PRN IV 10/08/24 22:30 Nitroglycerin 0.4 mg Q5MINP PRN SL 10/08/24 22:30 Morphine Sulfate 2 mg Q30M PRN IV 10/08/24 22:30 Haloperidol Lactate 5 mg [id number] PRN IM 10/09/24 04:15 10/09/24 12:20 5 MG Sacubitril/ Valsartan 1 tab BID PO 10/09/24 10:00 10/11/24 09:21 1 TAB Enoxaparin Sodium 120 mg DAILY SC 10/09/24 10:00 UNV Digoxin 0.125 mg DAILY@LUNCH PO 10/09/24 12:00 10/11/24 13:08 0.125 MG Levothyroxine Sodium 112 mcg QAM PO 10/10/24 07:00 10/11/24 05:54 112 MCG Azithromycin 250 ml @ 125 mls/hr DAILY IV 10/09/24 12:00 10/11/24 09:21 125 MLS/HR Ceftriaxone Sodium 50 ml @ 100 mls/hr DAILY@09 IV 10/09/24 11:00 10/11/24 09:21 100 MLS/HR Ipratropium [place] 0.5 mg Q6HWA NEB 10/09/24 12:00 10/11/24 11:29 0.5 MG Albuterol 2.5 mg Q6HPRN PRN NEB 10/09/24 11:00 10/11/24 11:29 2.5 MG Apixaban 5 mg BID PO 10/10/24 22:00 10/11/24 09:21 5 MG Magnesium Sulfate/ Dextrose 100 ml @ 100 mls/hr Q1HR IV 10/11/24 12:00 10/11/24 15:59 10/11/24 13:09 100 MLS/HR laboratory and microbiology Laboratory Tests 10/11/24 05:31 Test 10/11/24 05:31 Range/Units Serum Glucose 77 74-106 mg/dL Assessment/Plan Impression Acute hypoxemic respiratory failure Altered mental status Pneumonia Nosebleeds Patient seen and examined Events Low oxygen requirements On 1 liter nasal cannula No distress Labs and imaging reviewed Chest x-ray shows infiltrates consistent with pneumonia Management Supplemental oxygen Titrate to maintain sats 90% or above Incentive spirometry Continue antibiotics De-escalate based on cultures Bronchodilators Monitor renal function Monitor electrolytes Supplement as needed Mechanical DVT prophylaxis Dietary Evaluation Review Recommendations by RD: Protein Supplementation Comments: 1) Initiate Ensure Enlive qd. Encourage optimal intake 2) Initiate Pro-Stat @ 30 mL qd. 3) Refer to outpatient RD for weight management 4) Follow-up with cardiology and nephrology 5) Continue to monitor I&O, labs, and skin integrity Expected Outcomes/Goals: 1) appetite and labs to improve 2) wound to improve 3) f/u in 3-5 days Plan discussed with: Patient OLIVER MCGEE MD October 11, 2024 13:54
[2024-10-11] MEDS ORDERED: METO25TA93 PO (17:03)
[2024-10-11] MEDS: SODIUM PHOSPHATES 40 MEQ in D5W 5% 250 ML IV ONE (17:53)
[2024-10-12] VITALS (14 sets, daily range): BP systolic 90–101; BP diastolic 37–65; PULSE 60–83; RESP 16–95; TEMP 97.5–98.1; O2SAT 17–99
--- NOTE | 2024-10-12 08:07 | DVHPN2 ---
Progress Note - Dictate Date Seen: October 12, 2024 Medical Necessity Reason Pt with a Central, PICC or Fol: No vital signs Vital Sign Date Time Temp Pulse Resp B/P (MAP) Pulse Ox O2 Delivery O2 Flow Rate FiO2 10/12/24 06:44 71 17 99 10/12/24 06:38 Nasal Cannula 2.0 10/12/24 06:38 28 10/12/24 05:00 97.8 101/65 (77) 97.8 Total Intake and Output 10/11/24 10/11/24 10/12/24 15:00 23:00 07:00 Intake Total 500 ml 232.5 ml 150 ml Output Total 700 ml 350 ml Balance 500 ml -467.5 ml -200 ml medications Current Medications Medications Dose Ordered Sig/Rj Route Start Time Stop Time Status Last Admin Dose Admin Acetaminophen 325 mg Q4HP PRN PO 10/08/24 22:30 Acetaminophen/ Hydrocodone Bitart 1 tab Q4HP PRN PO 10/08/24 22:30 10/11/24 17:06 1 TAB Ondansetron HCl 4 mg Q4HP PRN IV 10/08/24 22:30 Nitroglycerin 0.4 mg Q5MINP PRN SL 10/08/24 22:30 Morphine Sulfate 2 mg Q30M PRN IV 10/08/24 22:30 Haloperidol Lactate 5 mg [id number] PRN IM 10/09/24 04:15 10/09/24 12:20 5 MG Sacubitril/ Valsartan 1 tab BID PO 10/09/24 10:00 10/11/24 23:41 1 TAB Enoxaparin Sodium 120 mg DAILY SC 10/09/24 10:00 UNV Digoxin 0.125 mg DAILY@LUNCH PO 10/09/24 12:00 10/11/24 13:08 0.125 MG Levothyroxine Sodium 112 mcg QAM PO 10/10/24 07:00 10/12/24 07:01 112 MCG Azithromycin 250 ml @ 125 mls/hr DAILY IV 10/09/24 12:00 10/11/24 09:21 125 MLS/HR Ceftriaxone Sodium 50 ml @ 100 mls/hr DAILY@09 IV 10/09/24 11:00 10/11/24 09:21 100 MLS/HR Ipratropium [place] 0.5 mg Q6HWA [facility] 10/09/24 12:00 10/12/24 06:38 0.5 MG Albuterol 2.5 mg Q6HPRN PRN [facility] 10/09/24 11:00 10/11/24 18:27 2.5 MG Apixaban 5 mg BID PO 10/10/24 22:00 10/11/24 09:21 5 MG laboratory and microbiology Laboratory Tests 10/11/24 05:31 Test 10/11/24 05:31 Range/Units Serum Glucose 77 74-106 mg/dL Assessment/Plan Patient is a 79 year old female who was transferred from [facility]. She was transferred for nosebleed. Does have old history of atrial fibrillation and is on Xarelto as outpatient. She is confused and not source of history. Cardiology was involved for cardiac aspects of care and questioning if the anticoagulation needs to be continued. It seems that the patient was recently in the hospital with encephalopathy/sepsis. Information was obtained by reviewing the chart and communicating with staff. There is no report of chest pain. There is no report of hypotension. Obese lady. Lying flat in bed. Not in acute distress. No active nosebleed at the time of evaluation. Mucosa is pink and wet. Not using accessory muscles of breathing. Scattered rhonchi in the lungs is heard. No rales. Cardiac: Irregular, no thrill. Systolic murmur 2/6 in the apex is heard. Abdomen is soft. There is no gross mass/hepatomegaly. Extremities reveal 1+ edema bilaterally. Past medical history includes morbid obesity, atrial fibrillation, anemia, CKD, hypothyroidism, depression, GERD, hyperlipidemia, diverticulosis, moderate aortic stenosis and heart failure. She was recently in the hospital. Encephalopathy/sepsis. She was recently treated for urosepsis. Echocardiogram of September 24, 2024 had revealed ejection fraction of 40-45%, moderate aortic stenosis and mild tricuspid regurgitation. Troponin (high sensitive): Chest x-ray reported: IMPRESSION: 1. Bilateral perihilar infiltrates with involvement of the right upper lobe and left lower lobe. CT Brain revealed no acute intracranial abnormality. EKG revealed atrial fibrillation with moderate ventricular response Tele reveals atrial fibrillation with moderate ventricular response (now rate controlled) Patient is a 79-year-old female who presented with nosebleed. It seems that the nosebleed has been mostly secondary to patient's probing on it (as per nurse). Does have baseline history of atrial fibrillation and heart failure. Recognizing comorbidities, CHADS-VASc score is high and long-term full anticoagulation is advised to prevent CVA and embolic problems. At this point, as the patient was having nosebleed, you can hold anticoagulation. Patient is somewhat confused and encephalopathy can be considered. Nosebleed Atrial fibrillation, chronic Heart failure, diastolic Valvular heart disease Moderate aortic stenosis Encephalopathy Morbid obesity Hypothyroidism Hyperlipidemia Cardiac suggestion for management: Manage on telemetry Follow-up electrolytes and kidney function tests and correct abnormalities Presently, can hold anticoagulation until resolution of the nosebleed (resolved) Long-term continuation of anticoagulation is advised. Guideline directed medical therapy for systolic heart failure is advised On Entresto 24-26mg twice daily Neurology evaluation for encephalopathy ongoing - Recommended EEG (pending) Further evaluation and management depends on the above and clinical course Thank you for consultation A total of 75 minutes was spent reviewing the patient record, examining the patient, making a diagnostic and therapeutic plan, discussing this plan with medical personnel, following up on diagnostic studies and following the patient for clinical stability excluding any and all procedures. At least 50% of this time was spent in direct, [id number] contact. Thank you for allowing me to participate in this patient's care. Further recommendations will depend on patient's clinical course. Please do not hesitate to contact me if you have any questions or concerns. This medical document was created using electronic medical record system with [employer] computerized dictation system. Although this document has been carefully reviewed, there may still be some phonetic and typographical errors. These areas are purely typographical due to the imperfection of the software programs, and do not reflect any compromise in the patient's medical care. Dietary Evaluation Review Recommendations by RD: Protein Supplementation Comments: 1) Initiate Ensure Enlive qd. Encourage optimal intake 2) Initiate Pro-Stat @ 30 mL qd. 3) Refer to outpatient RD for weight management 4) Follow-up with cardiology and nephrology 5) Continue to monitor I&O, labs, and skin integrity Expected Outcomes/Goals: 1) appetite and labs to improve 2) wound to improve 3) f/u in 3-5 days Plan discussed with: Other (Patient and Primary RN ) ZULMA GORDON October 12, 2024 08:07
--- NOTE | 2024-10-12 09:05 | DVHPN2 ---
Progress Note - Dictate Date Seen: October 12, 2024 Medical Necessity Reason Pt with a Central, PICC or Fol: No vital signs Vital Sign Date Time Temp Pulse Resp B/P (MAP) Pulse Ox O2 Delivery O2 Flow Rate FiO2 10/12/24 08:52 97.7 73 17 100/37 (58) 93 97.7 10/12/24 06:38 Nasal Cannula 2.0 10/12/24 06:38 28 Total Intake and Output 10/11/24 10/11/24 10/12/24 15:00 23:00 07:00 Intake Total 500 ml 232.5 ml 150 ml Output Total 700 ml 350 ml Balance 500 ml -467.5 ml -200 ml medications Current Medications Medications Dose Ordered Sig/Rj Route Start Time Stop Time Status Last Admin Dose Admin Acetaminophen 325 mg Q4HP PRN PO 10/08/24 22:30 Acetaminophen/ Hydrocodone Bitart 1 tab Q4HP PRN PO 10/08/24 22:30 10/11/24 17:06 1 TAB Ondansetron HCl 4 mg Q4HP PRN IV 10/08/24 22:30 Nitroglycerin 0.4 mg Q5MINP PRN SL 10/08/24 22:30 Morphine Sulfate 2 mg Q30M PRN IV 10/08/24 22:30 Haloperidol Lactate 5 mg [id number] PRN IM 10/09/24 04:15 10/09/24 12:20 5 MG Sacubitril/ Valsartan 1 tab BID PO 10/09/24 10:00 10/11/24 23:41 1 TAB Enoxaparin Sodium 120 mg DAILY SC 10/09/24 10:00 UNV Digoxin 0.125 mg DAILY@LUNCH PO 10/09/24 12:00 10/11/24 13:08 0.125 MG Levothyroxine Sodium 112 mcg QAM PO 10/10/24 07:00 10/12/24 07:01 112 MCG Azithromycin 250 ml @ 125 mls/hr DAILY IV 10/09/24 12:00 10/11/24 09:21 125 MLS/HR Ceftriaxone Sodium 50 ml @ 100 mls/hr DAILY@09 IV 10/09/24 11:00 10/11/24 09:21 100 MLS/HR Ipratropium [place] 0.5 mg Q6HWA NEB 10/09/24 12:00 10/12/24 06:38 0.5 MG Albuterol 2.5 mg Q6HPRN PRN NEB 10/09/24 11:00 10/11/24 18:27 2.5 MG Apixaban 5 mg BID PO 10/10/24 22:00 10/11/24 09:21 5 MG objective General Appearance: alert, no distress HEENT: EOMI, PERRLA, normal external inspect of ears, no icterus, no nasal drainage Neck: no carotid bruit, no jugular venous distention (JVD), no lymphadenopathy Chest: normal thorax Respiratory: clear to auscultation, normal air movement Cardiovascular: regular rate and rhythm, no diastolic murmur, no jugular venous distention (JVD), no rub, no systolic murmur Abdominal: soft, no hepatomegaly, no mass, no splenomegaly, no tenderness Genitourinary: grossly normal external Musculoskeletal: no joint tenderness, no swelling Extremities: normal pulses, no calf tenderness, no clubbing, no cyanosis, no edema Skin: no bruising, no jaundice, no rash Neurological: alert, No focal deficit laboratory and microbiology Laboratory Tests 10/11/24 05:31 Test 10/11/24 05:31 Range/Units Serum Glucose 77 74-106 mg/dL Problem List 1. Acute hypoxic respiratory failure Supplemental O2 2. Acute blood loss from epistaxis Medication, monitoring 3. Hypernatremia Medication, monitoring 4. PNA Medication, monitoring 5. Persistent atrial fibrillation Monitor EKG 6. Chronic anticoagulation on Xarelto Monitoring 7. Recent history of sepsis due to UTI with MDRO Repeat urinalysis 8. hyperbilirubinemia CMP Assessment/Plan Subjective: Patient is confused today. Objective: Patient is somewhat agitated and believes the hospital staff is trying to poison her. She refused her medications today. Patient was admitted for acute Evoxac respiratory failure and found to have pneumonia. She had a recent admission for sepsis with MDRO. Her total bilirubin is downtrending from 26.49 to 8. She has a history of persistent A-fib. Sodium is now within normal limits. Plan: EEG, monitor neurostatus changes, switch antibiotics to ertapenem, continue Rocephin. Neurology recommendations appreciated. Dietary Evaluation Review Recommendations by RD: Protein Supplementation Comments: 1) Initiate Ensure Enlive qd. Encourage optimal intake 2) Initiate Pro-Stat @ 30 mL qd. 3) Refer to outpatient RD for weight management 4) Follow-up with cardiology and nephrology 5) Continue to monitor I&O, labs, and skin integrity Expected Outcomes/Goals: 1) appetite and labs to improve 2) wound to improve 3) f/u in 3-5 days Plan discussed with: Patient, Other PARK MORTON NP October 12, 2024 09:05
--- NOTE | 2024-10-12 09:49 | DVHINCON2 ---
Date of service: October 12, [address] Nix Reason for Consultation ALOC History of Present Illness Ms. Ackerman is a 79 years old female with a history of hypertension, dyslipidemia, hypothyroidism, AFib, heart failure, diverticulosis, GERD, obesity, sleep apnea, hypothyroidism, COPD, chronic kidney failure, depression, anxiety, she was [facility] to the [facility] her SNF on 10/08/2024 with a chief complaint of altered mental status. 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 Urinalysis, 10/08/2024: WBC: 13, urine leukocyte esterase: 1+ WBC/HB/PLT/MCV, 10/08/2024: 3.7/10.2/162/82.6 PT/INR/PTT, 10/08/2024: 15.7/1.55/36.5 HCO3, 10/08/2024: > 40, : > 40, : 34. TBI/AST/ALT/AP, 10/11/2024: 1.2/85/22/59 Vitamin B12, 09/24/2024: 2466 TSH, 09/24/2024: 14.28, 10/09/2024: 26.49 Chest x-ray, 10/08/2024: 1. Bilateral perihilar infiltrates with involvement of the right upper lobe and left lower lobe. Past Medical History Hypertension, Dyslipidemia, AFib on Xarelto, heart failure, diverticulosis, GERD, Obesity, sleep apnea,hypothyroidism, COPD, chronic kidney failure, depression, anxiety, Past Surgical History Right ankle surgical scar Family History: Patient reports no known family medical history. Family History Unobtainable Social History Unobtainable Allergies: Coded Allergies: Ceftriaxone (Verified Allergy, Mild, ITCHING, 10/09/24) Codeine (Verified Allergy, Unknown, 09/23/24) Gabapentin (Verified Allergy, Unknown, 09/23/24) Uncoded Allergies: adhesive tape (Allergy, Intermediate, 10/08/24) OPIATES (Adverse Reaction, Unknown, 10/08/24) patient becomes lethargic. Home Meds Reported Medications Metoprolol Succinate (Metoprolol Succinate Er) 25 Mg Tab, 1 TAB PO DAILY, #30 TAB 5 Refills 10/11/24 Ipratropium-Albuterol (COMBIVENT RESPIMAT) Respimat Aer, 1 IN, AER 09/24/24 Budesonide-Formoterol Fumarate (Breyna 160-4.5 Mcg/Act) 1 Aer Aer, 1 AER IN, AER 09/24/24 Magnesium Hydroxide (Milk Of Magnesia) 400 Mg/5 Ml Mckayla, 400 MG PO, ML 09/24/24 Bisacodyl (Dulcolax) 10 Mg Sup, 70 MG RE, SUPP 09/24/24 Meloxicam (Meloxicam) 7.5 Mg Tab, 1 TAB PO DAILY, #30 TAB 2 Refills 09/24/24 Cranberry Extract (CRANBERRY) 600 Mg Tab, 600 MG OR, TAB 09/24/24 Flaxseed (Linseed) (Flax Seed Oil 1000 mg) 1 Cap Cap, 1 CAP PO, CAP 09/24/24 [place]-3 Fatty Acids (FISH OIL) 1,000 Mg Cap, 1000 MG PO, CAP 09/24/24 Ascorbic Acid (Acerola C 500) 500 Mg Waf, 500 MG PO, MISC 09/24/24 Calcium Carbonate-Cholecalcife (Calcium 500 + D 500-200 mg-Unit) 1 Tab Tab, 1 TAB PO, TAB 09/24/24 Acetazolamide (Acetazolamide) 250 Mg Tab, 500 MG PO Q6HR for 30 Days, MG 0 Refills 09/24/24 Cyanocobalamin (B-12) 1,000 Mcg Enedelia, 1000 MCG PO, ENEDELIA 09/24/24 Valerian Extract (Valerian Root) 500 Mg Cap, 500 MG PO, CAP 09/24/24 Coenzyme Q10 (Ubidecarenone) (COQ-10) 400 Mg Cap, 300 MG OR, CAP 09/24/24 Lorazepam (Lorazepam) 1 Mg Tab, 1 MG PO, TAB 09/24/24 Potassium Chloride (POTASSIUM CHLORIDE CR) 10 Meq Tb, 10 MEQ PO, TAB 09/24/24 Furosemide (Furosemide) 20 Mg Tab, 20 MG PO DAILY for 30 Days, MG 09/24/24 Rivaroxaban (XARELTO) 20 Mg Tab, 1 TAB PO DAILY, #30 TAB 11 Refills 09/24/24 Choline Fenofibrate (FENOFIBRIC ACID DR) 135 Mg Cap, 135 MG OR, CAP 09/24/24 Levothyroxine Sodium (Levothyroxine Sodium) 112 Mcg Tab, 112 MCG PO QAM for 30 Days, MCG 09/24/24 Current Medications Current Medications Medications (Trade) Dose Ordered Sig/Rj Route PRN Reason Start Time Stop Time Status Last Admin Magnesium Sulfate/ Dextrose 100 ml @ 100 mls/hr Q1HR IV 10/11/24 12:00 10/11/24 15:59 DC 10/11/24 16:20 Review of Systems Unobtainable Vital Signs Vital Signs Date Time Temp Pulse Resp B/P (MAP) Pulse Ox O2 Delivery O2 Flow Rate FiO2 10/12/24 08:52 97.7 73 17 100/37 (58) 93 97.7 10/12/24 06:38 Nasal Cannula 2.0 10/12/24 06:38 28 Physical Exam GENERAL EXAM: General: the patient is well developed and nourished. No acute distress. HEENT: Normocephalic, neck is supple, no carotid bruits. No mass. RESPIRATORY: Normal respiratory effort with symmetrical lung expansion. Lungs clear to auscultation. CARDIOVASCULAR: Regular rate and rhythm with no murmurs. S1, S2. ABDOMEN: Soft, nontender, normal bowel sound NEUROLOGICAL: MENTAL STATUS: Awake and alert. Oriented to person, SPEECH, LANGUAGE, HIGHER CORTICAL FUNCTION: no aphasia or dysathria. CRANIAL NERVES: #2: Intact visual marie to confrontation. The optic discs were sharps. #3,4,6: Pupils are equal, round and reactive. EOMs full and conjugate. No nystagmus. #5: Facial sensation intact in all three divisions bilaterally. Mandibular strength intact. #7: Facial muscles symmetrical and strength intact. #8: Hearing grossly normal to voice. #9,10: Uvula and soft palate rise in the midline. Swallow and voice are normal. #11: Trapezius and sternomastoid strength intact bilaterally. #12: Tongue midline. No fasciculations or atrophy. SENSATION: Sensation to touch and pinprick is normal. MOTOR: Normal tone in the upper and lower extremity. Normal muscle bulk. No fasciculations. No abnormal movements or posturing. She moves the arms and legs REFLEXES: Deep tendon reflexes are symmetrical. No pathological reflexes. CEREBELLAR/COORDINATION: Deferred GAIT/STATION: deferred. Labs/Diagnostic Data Labs Test 10/11/24 05:31 10/10/24 12:00 10/09/24 06:58 10/08/24 22:49 Range/Units White Blood Count 3.8 L 4.4-10.8 10^3/uL Red Blood Count 3.93 L 4.0-5.20 10^6/uL Hemoglobin 9.8 L 12.2-16.2 g/dL Hematocrit 32.0 L 36.0-46.0 % Mean Corpuscular Volume 81.6 80.0-100.0 fL Mean Corpuscular Hemoglobin 25.1 L 28.0-32.0 pg Mean Corpuscular Hemoglobin Concent 30.7 L 32.0-36.0 g/dL Red Cell Distribution Width 35.6 H 11.8-14.3 % Platelet Count 158 140-450 10^3/uL Mean Platelet Volume 8.3 6.9-10.8 fL Neutrophils (%) (Auto) 63.5 37.0-80.0 % Lymphocytes (%) (Auto) 16.4 10.0-50.0 % Monocytes (%) (Auto) 13.1 H 0.0-12.0 % Eosinophils (%) (Auto) 3.1 0.0-7.0 % Basophils (%) (Auto) 3.9 H 0.0-2.0 % Neutrophils # (Auto) 2.4 1.6-8.6 10 ^3/uL Lymphocytes # (Auto) 0.6 0.4-5.4 10 ^3/uL Monocytes # (Auto) 0.5 0-1.3 10 ^3/uL Eosinophils # (Auto) 0.1 0-0.8 10 ^3/uL Basophils # (Auto) 0.1 0-0.2 10 ^3/uL Nucleated Red Blood Cells 1.4 % Platelet Estimate Adequate Hypochromasia (manual) Moderate Anisocytosis (manual) Marked Target Cells Many Sodium Level 142 # 136-145 mmol/L Potassium Level 4.7 3.5-5.1 mmol/L Chloride Level 102 98-107 mmol/L Carbon Dioxide Level 34 H 20-31 mmol/L Anion Gap 6 5-15 Blood Urea Nitrogen 11 9-23 mg/dL Creatinine 0.62 0.550-1.02 mg/dL Glomerular Filtration Rate Calc 92 >90 mL/min BUN/Creatinine Ratio 17.7 10.0-20.0 Serum Glucose 77 74-106 mg/dL Calcium Level 8.6 L 8.7-10.4 mg/dL Phosphorus Level 1.4 L 2.4-5.1 mg/dL Magnesium Level 1.4 L 1.6-2.6 mg/dL Total Bilirubin 1.2 H 0.2-1.0 mg/dL Aspartate Amino Transferase (AST) 85 H 13-40 U/L Alanine Aminotransferase (ALT) 22 7-40 U/L Alkaline Phosphatase 59 46-116 U/L Total Protein 4.1 L 5.7-8.2 g/dL Albumin 2.1 L 3.2-4.8 g/dL B-Type Natriuretic Peptide 449.34 0-100 pg/mL Poikilocytosis (manual) Moderate Stomatocytes Moderate Schistocytes Few Thyroid Stimulating Hormone (TSH) 26.49 H 0.55-4.78 uIU/mL Troponin I High Sensitivity 12 </=34 ng/L Test 10/08/24 22:00 10/08/24 19:50 Range/Units Urine Color Yellow Yellow Urine Clarity Turbid H Clear Urine pH 5.5 5.0-9.0 Urine Specific [place] 1.023 1.001-1.035 Urine Protein Trace H Negative Urine Ketones Trace Negative Urine Blood Negative Negative /uL Urine Nitrite Negative Negative Urine Bilirubin Negative Negative Urine Urobilinogen Normal Negative mg/dL Urine Leukocyte Esterase 1+ Negative /uL Urine RBC <1 0 - 4 /hpf Urine Microscopic WBC 13 H 0-5 /HPF Urine Squamous Epithelial Cells Few <5 /hpf Urine Calcium Oxalate Crystals Few None Seen Urine Bacteria Few H None Seen /hpf Urine Hyaline Casts Mod 0 - 2 /lpf Urine Mucus Few None Seen Urine Glucose Normal Normal mg/dL Differential Total Cells Counted 100.0 100 Neutrophils % (Manual) 64 37.0-80.0 Band Neutrophils % (Manual) 0 Lymphocytes % (Manual) 17 10.0-50.0 Monocytes % (Manual) 18 H 0-12 Eosinophils % (Manual) 1 0-7 Basophils % (Manual) 0 0.0-2.0 Metamyelocytes % (manual) 0 Myelocytes % (Manual) 0 Promyelocytes % (Manual) 0 Blast Cells % (Manual) 0 Reactive Lymphocytes 0 Prothrombin Time 15.7 H 9.3-11.8 sec Prothrombin Time INR 1.55 H 0.9-1.15 Activated Partial Thromboplast Time 36.2 H 24.5-34.5 SEC Lactic Acid Level 2.0 0.4-2.0 mmol/L Microbiology Date/Time Source Procedure Growth Status 10/08/24 19:50 Blood Blood Culture - Preliminary NO GROWTH AFTER 72 HOURS OF INCUBATION. Resulted Assessment Altered mental status Metabolic encephalopathy secondary to chronic respiratory failure, UTI, pneumonia Partial complex seizure, less likely COPD/chronic respiratory failure ? Obesity hypoventilation syndrome Hypothyroidism AFib Plan/Recommendation Monitoring Supportive treatment Telemetry EEG BiPAP IV antibiotics Levothyroxine Eliquis Up to chair Physical therapy More recommendation per clinical course Prognosis poor This medical document was created using an electronic medical record system with [employer] dictation system. Although this document has been carefully reviewed, there may still be some phonetic and typographical errors. These areas are purely typographical due to imperfections of the software programs, and do not reflect any compromise in the patient's medical care. Plan discussed with: TREVOR Allen MD October 12, 2024 09:49
[2024-10-12 18:41] LABS: Basophils # (auto) 0.1 10 ^3/uL (0-0.2); Basophils % (auto) 1.1 % (0.0-2.0); Eosinophils # (auto) 0.1 10 ^3/uL (0-0.8); Eosinophils % (auto) 2.7 % (0.0-7.0); Hematocrit 34.4 % (36.0-46.0); Hemoglobin 10.8 g/dL (12.2-16.2); Lymphocytes # (auto) 0.7 10 ^3/uL (0.4-5.4); Lymphocytes % (auto) 14.4 % (10.0-50.0); Mean Corpuscular Hemoglobin 24.5 pg (28.0-32.0); Mean Corpuscular Hgb Conc. 31.5 g/dL (32.0-36.0); Mean Corpuscular Volume 77.8 fL (80.0-100.0); Monocytes # (auto) 0.6 10 ^3/uL (0-1.3); Monocytes % (auto) 12.9 % (0.0-12.0); Neutrophils # (auto) 3.2 10 ^3/uL (1.6-8.6); Neutrophils % (auto) 68.9 % (37.0-80.0); Nucleated Red Blood Cells % 0.2 %; Platelet Count (auto) 145 10^3/uL (140-450); Red Blood Cells 4.43 10^6/uL (4.0-5.20); White Blood Cell 4.6 10^3/uL (4.4-10.8)
[2024-10-12 18:42] LABS: Anion Gap 5 (5-15); Chloride 103 mmol/L (98-107); Potassium 3.8 mmol/L (3.5-5.1); Red Cell Distribution Width 34.7 % (11.8-14.3); Sodium 141 mmol/L (136-145)
[2024-10-12 18:46] LABS: Calcium 8.5 mg/dL (8.7-10.4); Carbon Dioxide 33 mmol/L (20-31)
[2024-10-12 18:48] LABS: BUN/Creatinine Ratio 14.3 (10.0-20.0); Blood Urea Nitrogen 8 mg/dL (9-23); Glucose 85 mg/dL (74-106)
[2024-10-12 18:49] LABS: Magnesium 1.9 mg/dL (1.6-2.6)
[2024-10-12 18:50] LABS: Phosphorus 2.7 mg/dL (2.4-5.1)
[2024-10-12 19:14] LABS: Anisocytosis Marked; Hypochromia Slight; Platelet Estimate Adequate
[2024-10-12 19:15] LABS: Target Cell MODERATE
--- NOTE | 2024-10-12 23:28 | DVHPN2 ---
Progress Note - Dictate Date Seen: October 12, 2024 Medical Necessity Reason Pt with a Central, PICC or Fol: Yes The following are medically ne: Esquivel Catheter Reason for esquivel catheter: Strict I&O Subjective Patient seen and examined at bedside. Remains on supplemental oxygen Overnight events reviewed. vital signs Vital Sign Date Time Temp Pulse Resp B/P (MAP) Pulse Ox O2 Delivery O2 Flow Rate FiO2 10/12/24 21:00 97.9 83 17 99/60 (73) 97 97.9 10/12/24 20:00 Nasal Cannula* 2 28 Total Intake and Output 10/11/24 10/11/24 10/12/24 15:00 23:00 07:00 Intake Total 500 ml 232.5 ml 150 ml Output Total 700 ml 350 ml Balance 500 ml -467.5 ml -200 ml medications Current Medications Medications Dose Ordered Sig/Rj Route Start Time Stop Time Status Last Admin Dose Admin Acetaminophen 325 mg Q4HP PRN PO 10/08/24 22:30 Acetaminophen/ Hydrocodone Bitart 1 tab Q4HP PRN PO 10/08/24 22:30 10/11/24 17:06 1 TAB Ondansetron HCl 4 mg Q4HP PRN IV 10/08/24 22:30 Nitroglycerin 0.4 mg Q5MINP PRN SL 10/08/24 22:30 Morphine Sulfate 2 mg Q30M PRN IV 10/08/24 22:30 Haloperidol Lactate 5 mg [id number] PRN IM 10/09/24 04:15 10/09/24 12:20 5 MG Sacubitril/ Valsartan 1 tab BID PO 10/09/24 10:00 10/12/24 21:06 1 TAB Enoxaparin Sodium 120 mg DAILY SC 10/09/24 10:00 UNV Digoxin 0.125 mg DAILY@LUNCH PO 10/09/24 12:00 10/11/24 13:08 0.125 MG Levothyroxine Sodium 112 mcg QAM PO 10/10/24 07:00 10/12/24 07:01 112 MCG Azithromycin 250 ml @ 125 mls/hr DAILY IV 10/09/24 12:00 10/12/24 11:36 125 MLS/HR Ceftriaxone Sodium 50 ml @ 100 mls/hr DAILY@09 IV 10/09/24 11:00 10/12/24 09:38 100 MLS/HR Ipratropium [place] 0.5 mg Q6HWA NEB 10/09/24 12:00 10/12/24 19:26 0.5 MG Albuterol 2.5 mg Q6HPRN PRN NEB 10/09/24 11:00 10/11/24 18:27 2.5 MG Apixaban 5 mg BID PO 10/10/24 22:00 10/12/24 21:06 5 MG objective Gen.: Patient lying in bed in no apparent distress. On supplemental oxygen. Head: Normocephalic, atraumatic. Eyes: EOMI/PERRLA. Ears: Normal hearing. Normal anatomy. Neck/trachea: Trachea midline, supple. Nose: Normal external anatomy. Mouth: Moist mucous membranes. Chest: Decreased air entry bilaterally. No wheezing or rhonchi. Cardiovascular: Positive S1, positive S2. Regular rate and rhythm. Abdomen: Positive bowel sounds in all 4 quadrants. Soft, non-tender, non- distended. : Deferred. Rectal: Deferred. Skin: Warm, dry. Intact. Extremities: 2+ radial pulses bilaterally. No lower extremity edema. Neuro: Awake, alert, oriented x3. No gross motor or sensory deficits. Cranial nerves II through XII intact. Gait not assessed. laboratory and microbiology Laboratory Tests 10/12/24 18:23 Test 10/12/24 18:23 Range/Units Serum Glucose 85 74-106 mg/dL Assessment/Plan Impression: Acute hypoxemic respiratory failure Altered mental status Pneumonia, likely gram negative Epistaxis Atelectasis Events: Patient seen and examined Low oxygen requirements On 2 liters per minute nasal cannula No distress Neurology recommendations appreciated Head of bed elevation Aspiration precautions Continue antibiotics Incentive spirometry Eliquis BID Labs and imaging reviewed Rest of plan as noted below Plan: Supplemental oxygen Titrate to maintain sats 90% or above Incentive spirometry Continue antibiotics De-escalate based on cultures Bronchodilators Monitor renal function Monitor electrolytes Supplement as needed DVT prophylaxis Prognosis: Poor given patient's multiple co-morbidities. Rest of plan per hospitalist and other consultants. Thank you Dr. Nix for allowing me to participate in this patient's care. Further recommendations will depend on the patient's clinical course. Please do not hesitate to contact me if you have any questions or concerns. This medical document was created using an electronic medical record system with [employer] computerized dictation system. Although these documentations are being carefully reviewed, there may still be some phonetic and typographical changes. The errors are purely typographical, due to imperfection on the software program, and do not reflect any compromise in the patient's medical care. Dietary Evaluation Review Recommendations by RD: Protein Supplementation Comments: 1) Initiate Ensure Enlive qd. Encourage optimal intake 2) Initiate Pro-Stat @ 30 mL qd. 3) Refer to outpatient RD for weight management 4) Follow-up with cardiology and nephrology 5) Continue to monitor I&O, labs, and skin integrity Expected Outcomes/Goals: 1) appetite and labs to improve 2) wound to improve 3) f/u in 3-5 days Plan discussed with: Patient, Other (TOMASZ Villarreal) RYAN FLOOD MD October 12, 2024 23:27
[2024-10-13] VITALS (8 sets, daily range): BP systolic 93–103; BP diastolic 48–56; PULSE 72–83; RESP 17–18; TEMP 97.4–98; O2SAT 7–98
--- NOTE | 2024-10-13 05:12 | DVHPN2 ---
Progress Note - Dictate Date Seen: October 13, 2024 Medical Necessity Reason Pt with a Central, PICC or Fol: No vital signs Vital Sign Date Time Temp Pulse Resp B/P (MAP) Pulse Ox O2 Delivery O2 Flow Rate FiO2 10/12/24 21:00 97.9 83 17 99/60 (73) 97 97.9 10/12/24 20:00 Nasal Cannula* 2 28 Total Intake and Output 10/12/24 10/12/24 10/13/24 15:00 23:00 07:00 Intake Total 300 ml 240 ml Output Total 400 ml Balance 300 ml -160 ml medications Current Medications Medications Dose Ordered Sig/Rj Route Start Time Stop Time Status Last Admin Dose Admin Acetaminophen 325 mg Q4HP PRN PO 10/08/24 22:30 Acetaminophen/ Hydrocodone Bitart 1 tab Q4HP PRN PO 10/08/24 22:30 10/11/24 17:06 1 TAB Ondansetron HCl 4 mg Q4HP PRN IV 10/08/24 22:30 Nitroglycerin 0.4 mg Q5MINP PRN SL 10/08/24 22:30 Morphine Sulfate 2 mg Q30M PRN IV 10/08/24 22:30 Haloperidol Lactate 5 mg [id number] PRN IM 10/09/24 04:15 10/09/24 12:20 5 MG Sacubitril/ Valsartan 1 tab BID PO 10/09/24 10:00 10/12/24 21:06 1 TAB Enoxaparin Sodium 120 mg DAILY SC 10/09/24 10:00 UNV Digoxin 0.125 mg DAILY@LUNCH PO 10/09/24 12:00 10/11/24 13:08 0.125 MG Levothyroxine Sodium 112 mcg QAM PO 10/10/24 07:00 10/12/24 07:01 112 MCG Azithromycin 250 ml @ 125 mls/hr DAILY IV 10/09/24 12:00 10/12/24 11:36 125 MLS/HR Ceftriaxone Sodium 50 ml @ 100 mls/hr DAILY@09 IV 10/09/24 11:00 10/12/24 09:38 100 MLS/HR Ipratropium [place] 0.5 mg Q6HWA NEB 10/09/24 12:00 10/12/24 19:26 0.5 MG Albuterol 2.5 mg Q6HPRN PRN NEB 10/09/24 11:00 10/11/24 18:27 2.5 MG Apixaban 5 mg BID PO 10/10/24 22:00 10/12/24 21:06 5 MG laboratory and microbiology Laboratory Tests 10/12/24 18:23 Test 10/12/24 18:23 Range/Units Serum Glucose 85 74-106 mg/dL Assessment/Plan Patient is a 79 year old female who was transferred from [facility]. She was transferred for nosebleed. Does have old history of atrial fibrillation and is on Xarelto as outpatient. She is confused and not source of history. Cardiology was involved for cardiac aspects of care and questioning if the anticoagulation needs to be continued. It seems that the patient was recently in the hospital with encephalopathy/sepsis. Information was obtained by reviewing the chart and communicating with staff. There is no report of chest pain. There is no report of hypotension. Obese lady. Lying flat in bed. Not in acute distress. No active nosebleed at the time of evaluation. Mucosa is pink and wet. Not using accessory muscles of breathing. Scattered rhonchi in the lungs is heard. No rales. Cardiac: Irregular, no thrill. Systolic murmur 2/6 in the apex is heard. Abdomen is soft. There is no gross mass/hepatomegaly. Extremities reveal 1+ edema bilaterally. Past medical history includes morbid obesity, atrial fibrillation, anemia, CKD, hypothyroidism, depression, GERD, hyperlipidemia, diverticulosis, moderate aortic stenosis and heart failure. She was recently in the hospital. Encephalopathy/sepsis. She was recently treated for urosepsis. Echocardiogram of September 24, 2024 had revealed ejection fraction of 40-45%, moderate aortic stenosis and mild tricuspid regurgitation. Troponin (high sensitive): Chest x-ray reported: IMPRESSION: 1. Bilateral perihilar infiltrates with involvement of the right upper lobe and left lower lobe. CT Brain revealed no acute intracranial abnormality. EKG revealed atrial fibrillation with moderate ventricular response Tele reveals atrial fibrillation with moderate ventricular response (now rate controlled) Patient is a 79-year-old female who presented with nosebleed. It seems that the nosebleed has been mostly secondary to patient's probing on it (as per nurse). Does have baseline history of atrial fibrillation and heart failure. Recognizing comorbidities, CHADS-VASc score is high and long-term full anticoagulation is advised to prevent CVA and embolic problems. At this point, as the patient was having nosebleed, you can hold anticoagulation. Patient is somewhat confused and encephalopathy can be considered. Nosebleed Atrial fibrillation, chronic Heart failure, diastolic Valvular heart disease Moderate aortic stenosis Encephalopathy Morbid obesity Hypothyroidism Hyperlipidemia Cardiac suggestion for management: Manage on telemetry Follow-up electrolytes and kidney function tests and correct abnormalities Presently, can hold anticoagulation until resolution of the nosebleed (resolved) Long-term continuation of anticoagulation is advised. Guideline directed medical therapy for systolic heart failure is advised On Entresto 24-26mg twice daily Neurology evaluation for encephalopathy ongoing - Recommended EEG (pending) Further evaluation and management depends on the above and clinical course Thank you for consultation A total of 75 minutes was spent reviewing the patient record, examining the patient, making a diagnostic and therapeutic plan, discussing this plan with medical personnel, following up on diagnostic studies and following the patient for clinical stability excluding any and all procedures. At least 50% of this time was spent in direct, [id number] contact. Thank you for allowing me to participate in this patient's care. Further recommendations will depend on patient's clinical course. Please do not hesitate to contact me if you have any questions or concerns. This medical document was created using electronic medical record system with [employer] computerized dictation system. Although this document has been carefully reviewed, there may still be some phonetic and typographical errors. These areas are purely typographical due to the imperfection of the software programs, and do not reflect any compromise in the patient's medical care. Dietary Evaluation Review Recommendations by RD: Protein Supplementation Comments: 1) Initiate Ensure Enlive qd. Encourage optimal intake 2) Initiate Pro-Stat @ 30 mL qd. 3) Refer to outpatient RD for weight management 4) Follow-up with cardiology and nephrology 5) Continue to monitor I&O, labs, and skin integrity Expected Outcomes/Goals: 1) appetite and labs to improve 2) wound to improve 3) f/u in 3-5 days Plan discussed with: Patient (primary rn) ZULMA GORDON October 13, 2024 05:12
--- NOTE | 2024-10-13 07:02 | DVH ---
EXAM: XR Chest, 1 View CLINICAL INDICATION: f/u pna TECHNIQUE: Frontal view of the chest. COMPARISON: XY CHEST PORTABLE on DOS: 10/08/24, XY CHEST PORTABLE on DOS: 09/24/24, XY CHEST PORTABLE on DOS: 09/23/24 FINDINGS: LUNGS AND PLEURAL SPACES: Bibasilar atelectasis or pneumonia. Bilateral pleural effusions. No pne umothorax. HEART: Unremarkable. No cardiomegaly. MEDIASTINUM: Unremarkable. Normal mediastinal contour. BONES/JOINTS: Unremarkable. No acute fracture. OTHER FINDINGS: . . . IMPRESSION: 1. Bibasilar atelectasis or pneumonia. 2. Bilateral pleural effusions.
--- NOTE | 2024-10-13 10:21 | DVHPN2 ---
Progress Note - Dictate Date Seen: October 13, 2024 Medical Necessity Reason Pt with a Central, PICC or Fol: Yes The following are medically ne: Esquivel Catheter Reason for esquivel catheter: Strict I&O Subjective Ms. Ackerman is a 79 years old female with a history of hypertension, dyslipidemia, hypothyroidism, AFib, heart failure, diverticulosis, GERD, obesity, sleep apnea, hypothyroidism, COPD, chronic kidney failure, depression, anxiety, she was admitted to the [facility] her SNF on [facility]24 with a chief complaint of altered mental status. I have seen and examined the patient, I have talked to her nurse and sitter, she was doing much better today, awake, oriented to person, place, she knows year, reasonable social skills She tells me she does not want to stay in the hospital too long, he does not want to , but she wants to be discharged before she dies She was talks about something not relevant to our conversation Urinalysis, 10/08/2024: WBC: 13, urine leukocyte esterase: 1+ WBC/HB/PLT/MCV, 10/08/2024: 3.7/10.2/162/82.6 PT/INR/PTT, 10/08/2024: 15.7/1.55/36.5 HCO3, 10/08/2024: > 40, 5: > 40, : 34 10/13/2019 5:33 a.m.. TBI/AST/ALT/AP, 10/11/2024: 1.2/85/22/59 Vitamin B12, 09/24/2024: 2466 TSH, 09/24/2024: 14.28, 10/09/2024: 26.49 Chest x-ray, 10/08/2024: 1. Bilateral perihilar infiltrates with involvement of the right upper lobe and left lower lobe. vital signs Vital Sign Date Time Temp Pulse Resp B/P (MAP) Pulse Ox O2 Delivery O2 Flow Rate FiO2 10/13/24 09:59 97 Nasal Cannula 2.0 10/13/24 09:59 28 10/13/24 09:00 97.9 75 18 103/56 (72) 97.9 Total Intake and Output 10/12/24 10/12/24 10/13/24 15:00 23:00 07:00 Intake Total 300 ml 240 ml 900 ml Output Total 400 ml 350 ml Balance 300 ml -160 ml 550 ml medications Current Medications Medications Dose Ordered Sig/Rj Route Start Time Stop Time Status Last Admin Dose Admin Acetaminophen 325 mg Q4HP PRN PO 10/08/24 22:30 Acetaminophen/ Hydrocodone Bitart 1 tab Q4HP PRN PO 10/08/24 22:30 10/11/24 17:06 1 TAB Ondansetron HCl 4 mg Q4HP PRN IV 10/08/24 22:30 Nitroglycerin 0.4 mg Q5MINP PRN SL 10/08/24 22:30 Morphine Sulfate 2 mg Q30M PRN IV 10/08/24 22:30 Haloperidol Lactate 5 mg [id number] PRN IM 10/09/24 04:15 10/09/24 12:20 5 MG Sacubitril/ Valsartan 1 tab BID PO 10/09/24 10:00 10/13/24 09:07 1 TAB Enoxaparin Sodium 120 mg DAILY SC 10/09/24 10:00 UNV Digoxin 0.125 mg DAILY@LUNCH PO 10/09/24 12:00 10/11/24 13:08 0.125 MG Levothyroxine Sodium 112 mcg QAM PO 10/10/24 07:00 10/13/24 05:51 112 MCG Azithromycin 250 ml @ 125 mls/hr DAILY IV 10/09/24 12:00 10/12/24 11:36 125 MLS/HR Ceftriaxone Sodium 50 ml @ 100 mls/hr DAILY@09 IV 10/09/24 11:00 10/13/24 09:07 100 MLS/HR Ipratropium [place] 0.5 mg Q6HWA NEB 10/09/24 12:00 10/12/24 19:26 0.5 MG Albuterol 2.5 mg Q6HPRN PRN NEB 10/09/24 11:00 10/11/24 18:27 2.5 MG Apixaban 5 mg BID PO 10/10/24 22:00 10/13/24 09:07 5 MG objective General: the patient is well developed and nourished. No acute distress. MENTAL STATUS: Subjective SPEECH, LANGUAGE, HIGHER CORTICAL FUNCTION: no aphasia or dysathria. CRANIAL NERVES: Pupils are equal, round and reactive. EOMs full and conjugate. No nystagmus. Facial sensation intact in all three divisions bilaterally. Mandibular strength intact. Facial muscles symmetrical and strength intact. SENSATION: Sensation to touch and pinprick is normal. MOTOR: Normal tone in the upper and lower extremity. Normal muscle bulk. No fasciculations. No abnormal movements or posturing. Muscle power in the upper extremity is about 4/5, She moves the feet REFLEXES: Deep tendon reflexes are symmetrical. No pathological reflexes. CEREBELLAR/COORDINATION: Deferred GAIT/STATION: deferred. laboratory and microbiology Laboratory Tests 10/12/24 18:23 Test 10/12/24 18:23 Range/Units Serum Glucose 85 74-106 mg/dL Problem List Altered mental status Metabolic encephalopathy secondary to chronic respiratory failure, UTI, pneumonia Partial complex seizure, less likely COPD/chronic respiratory failure ? Obesity hypoventilation syndrome Hypothyroidism AFib Assessment/Plan Monitoring Supportive treatment Telemetry EEG BiPAP, declined by the patient IV antibiotics Levothyroxine Eliquis Up to chair Physical therapy More recommendation per clinical course This medical document was created using an electronic medical record system with [employer] dictation system. Although this document has been carefully reviewed, there may still be some phonetic and typographical errors. These areas are purely typographical due to imperfections of the software programs, and do not reflect any compromise in the patient's medical care. Prognosis poor Dietary Evaluation Review Recommendations by RD: Protein Supplementation Comments: 1) Initiate Ensure Enlive qd. Encourage optimal intake 2) Initiate Pro-Stat @ 30 mL qd. 3) Refer to outpatient RD for weight management 4) Follow-up with cardiology and nephrology 5) Continue to monitor I&O, labs, and skin integrity Expected Outcomes/Goals: 1) appetite and labs to improve 2) wound to improve 3) f/u in 3-5 days Plan discussed with: Other Total Time (mins): 35 TREVOR LANDON MD October 13, 2024 10:21
--- NOTE | 2024-10-13 11:11 | DVHPN2 ---
Progress Note - Dictate Date Seen: October 13, 2024 Medical Necessity Reason Pt with a Central, PICC or Fol: Yes The following are medically ne: Esquivel Catheter Reason for esquivel catheter: Strict I&O vital signs Vital Sign Date Time Temp Pulse Resp B/P (MAP) Pulse Ox O2 Delivery O2 Flow Rate FiO2 10/13/24 09:59 97 Nasal Cannula 2.0 10/13/24 09:59 28 10/13/24 09:00 97.9 75 18 103/56 (72) 97.9 Total Intake and Output 10/12/24 10/12/24 10/13/24 15:00 23:00 07:00 Intake Total 300 ml 240 ml 900 ml Output Total 400 ml 350 ml Balance 300 ml -160 ml 550 ml medications Current Medications Medications Dose Ordered Sig/Rj Route Start Time Stop Time Status Last Admin Dose Admin Acetaminophen 325 mg Q4HP PRN PO 10/08/24 22:30 Acetaminophen/ Hydrocodone Bitart 1 tab Q4HP PRN PO 10/08/24 22:30 10/11/24 17:06 1 TAB Ondansetron HCl 4 mg Q4HP PRN IV 10/08/24 22:30 Nitroglycerin 0.4 mg Q5MINP PRN SL 10/08/24 22:30 Morphine Sulfate 2 mg Q30M PRN IV 10/08/24 22:30 Haloperidol Lactate 5 mg [id number] PRN IM 10/09/24 04:15 10/09/24 12:20 5 MG Sacubitril/ Valsartan 1 tab BID PO 10/09/24 10:00 10/13/24 09:07 1 TAB Enoxaparin Sodium 120 mg DAILY SC 10/09/24 10:00 UNV Digoxin 0.125 mg DAILY@LUNCH PO 10/09/24 12:00 10/11/24 13:08 0.125 MG Levothyroxine Sodium 112 mcg QAM PO 10/10/24 07:00 10/13/24 05:51 112 MCG Azithromycin 250 ml @ 125 mls/hr DAILY IV 10/09/24 12:00 10/12/24 11:36 125 MLS/HR Ceftriaxone Sodium 50 ml @ 100 mls/hr DAILY@09 IV 10/09/24 11:00 10/13/24 09:07 100 MLS/HR Ipratropium [place] 0.5 mg Q6HWA [facility] 10/09/24 12:00 10/12/24 19:26 0.5 MG Albuterol 2.5 mg Q6HPRN PRN [facility] 10/09/24 11:00 10/11/24 18:27 2.5 MG Apixaban 5 mg BID PO 10/10/24 22:00 10/13/24 09:07 5 MG objective General Appearance: alert, no distress HEENT: EOMI, PERRLA, normal external inspect of ears, no icterus, no nasal drainage Neck: no carotid bruit, no jugular venous distention (JVD), no lymphadenopathy Chest: normal thorax Respiratory: clear to auscultation, normal air movement Cardiovascular: regular rate and rhythm, no diastolic murmur, no jugular venous distention (JVD), no rub, no systolic murmur Abdominal: soft, no hepatomegaly, no mass, no splenomegaly, no tenderness Genitourinary: grossly normal external Musculoskeletal: no joint tenderness, no swelling Extremities: normal pulses, no calf tenderness, no clubbing, no cyanosis, no edema Skin: no bruising, no jaundice, no rash Neurological: alert, No focal deficit laboratory and microbiology Laboratory Tests 10/12/24 18:23 Test 10/12/24 18:23 Range/Units Serum Glucose 85 74-106 mg/dL Problem List 1. Acute hypoxic respiratory failure Supplemental O2 2. Acute blood loss from epistaxis Medication, monitoring 3. Hypernatremia Medication, monitoring 4. PNA Medication, monitoring 5. Persistent atrial fibrillation Monitor EKG 6. Chronic anticoagulation on Xarelto Monitoring 7. Recent history of sepsis due to UTI with MDRO Repeat urinalysis 8. hyperbilirubinemia CMP Assessment/Plan Subjective: Patient is A and O x 1. Objective: Patient was admitted for pneumonia. Patient had a recent history of sepsis at this facility. Chest X-Ray shows bilateral pneumonia. Patient was switched to Levaquin. Plan: Continue current treatment. Add diuretics. Patient has pleural effusions and monitor neuro status. Dietary Evaluation Review Recommendations by RD: Protein Supplementation Comments: 1) Initiate Ensure Enlive qd. Encourage optimal intake 2) Initiate Pro-Stat @ 30 mL qd. 3) Refer to outpatient RD for weight management 4) Follow-up with cardiology and nephrology 5) Continue to monitor I&O, labs, and skin integrity Expected Outcomes/Goals: 1) appetite and labs to improve 2) wound to improve 3) f/u in 3-5 days Plan discussed with: Patient, Other [employer] October 13, 2024 11:11
[2024-10-13 11:57] LABS: Basophils # (auto) 0 10 ^3/uL (0-0.2); Eosinophils # (auto) 0.1 10 ^3/uL (0-0.8); Hemoglobin 11.1 g/dL (12.2-16.2); Lymphocytes # (auto) 0.6 10 ^3/uL (0.4-5.4); Monocytes # (auto) 0.7 10 ^3/uL (0-1.3)
[2024-10-13 11:59] LABS: Basophils % (auto) 0.7 % (0.0-2.0); Hematocrit 35.2 % (36.0-46.0); Mean Corpuscular Hgb Conc. 31.5 g/dL (32.0-36.0); Mean Corpuscular Volume 79.5 fL (80.0-100.0); Monocytes % (auto) 12.4 % (0.0-12.0); Neutrophils % (auto) 74.9 % (37.0-80.0); Nucleated Red Blood Cells % 0.5 %; Platelet Count (auto) 179 10^3/uL (140-450); Red Blood Cells 4.43 10^6/uL (4.0-5.20); Red Cell Distribution Width 34.8 % (11.8-14.3); White Blood Cell 5.4 10^3/uL (4.4-10.8)
[2024-10-13 12:08] LABS: Chloride 101 mmol/L (98-107); Sodium 142 mmol/L (136-145)
[2024-10-13 12:09] LABS: Anion Gap 6 (5-15)
[2024-10-13 12:10] LABS: Calcium 8.8 mg/dL (8.7-10.4)
[2024-10-13 12:14] LABS: BUN/Creatinine Ratio 14.5 (10.0-20.0)
[2024-10-13 12:15] LABS: Magnesium 1.8 mg/dL (1.6-2.6)
[2024-10-13 12:18] LABS: Blood Urea Nitrogen 9 mg/dL (9-23); Carbon Dioxide 35 mmol/L (20-31); Glucose 109 mg/dL (74-106); Phosphorus 2.2 mg/dL (2.4-5.1); Potassium 3.4 mmol/L (3.5-5.1)
[2024-10-13 12:23] LABS: Anisocytosis Marked; Platelet Estimate Adequate
[2024-10-13 12:25] LABS: Ovalocytes FEW; Target Cell MODERATE
[2024-10-13] MEDS: FUROSEMIDE 40 MG/4 ML VIAL IV SCH (14:08)
[2024-10-13] MEDS: levoFLOXacin 500MG 100 ML IV SCH (14:08)
--- NOTE | 2024-10-13 23:18 | DVHPN2 ---
Progress Note - Dictate Date Seen: October 13, 2024 Medical Necessity Reason Pt with a Central, PICC or Fol: Yes The following are medically ne: Esquivel Catheter Reason for esquivel catheter: Strict I&O Subjective Patient seen and examined at bedside. Remains on supplemental oxygen Overnight events reviewed. vital signs Vital Sign Date Time Temp Pulse Resp B/P (MAP) Pulse Ox O2 Delivery O2 Flow Rate FiO2 10/13/24 21:00 97.8 77 17 99/53 (68) 96 97.8 10/13/24 20:00 Nasal Cannula* 2 28 Total Intake and Output 10/12/24 10/12/24 10/13/24 15:00 23:00 07:00 Intake Total 300 ml 240 ml 900 ml Output Total 400 ml 350 ml Balance 300 ml -160 ml 550 ml medications Current Medications Medications Dose Ordered Sig/Rj Route Start Time Stop Time Status Last Admin Dose Admin Acetaminophen 325 mg Q4HP PRN PO 10/08/24 22:30 Acetaminophen/ Hydrocodone Bitart 1 tab Q4HP PRN PO 10/08/24 22:30 10/11/24 17:06 1 TAB Ondansetron HCl 4 mg Q4HP PRN IV 10/08/24 22:30 Nitroglycerin 0.4 mg Q5MINP PRN SL 10/08/24 22:30 Morphine Sulfate 2 mg Q30M PRN IV 10/08/24 22:30 Haloperidol Lactate 5 mg [id number] PRN IM 10/09/24 04:15 10/09/24 12:20 5 MG Sacubitril/ Valsartan 1 tab BID PO 10/09/24 10:00 10/13/24 09:07 1 TAB Enoxaparin Sodium 120 mg DAILY SC 10/09/24 10:00 UNV Digoxin 0.125 mg DAILY@LUNCH PO 10/09/24 12:00 10/11/24 13:08 0.125 MG Levothyroxine Sodium 112 mcg QAM PO 10/10/24 07:00 10/13/24 05:51 112 MCG Ipratropium [place] 0.5 mg Q6HWA NEB 10/09/24 12:00 10/12/24 19:26 0.5 MG Albuterol 2.5 mg Q6HPRN PRN NEB 10/09/24 11:00 10/11/24 18:27 2.5 MG Apixaban 5 mg BID PO 10/10/24 22:00 10/13/24 09:07 5 MG Levofloxacin/ Dextrose 100 ml @ 100 mls/hr DAILY IV 10/13/24 11:15 10/13/24 14:08 100 MLS/HR Furosemide 40 mg DAILY IV 10/13/24 11:15 10/13/24 14:08 40 MG objective Gen.: Patient lying in bed in no apparent distress. On supplemental oxygen. Head: Normocephalic, atraumatic. Eyes: EOMI/PERRLA. Ears: Normal hearing. Normal anatomy. Neck/trachea: Trachea midline, supple. Nose: Normal external anatomy. Mouth: Moist mucous membranes. Chest: Decreased air entry bilaterally. No wheezing or rhonchi. Cardiovascular: Positive S1, positive S2. Regular rate and rhythm. Abdomen: Positive bowel sounds in all 4 quadrants. Soft, non-tender, non- distended. : Deferred. Rectal: Deferred. Skin: Warm, dry. Intact. Extremities: 2+ radial pulses bilaterally. No lower extremity edema. Neuro: Awake, alert, oriented x3. No gross motor or sensory deficits. Cranial nerves II through XII intact. Gait not assessed. laboratory and microbiology Laboratory Tests 10/13/24 11:38 10/13/24 11:35 Test 10/13/24 11:35 Range/Units Serum Glucose 109 H 74-106 mg/dL Assessment/Plan Impression: Acute hypoxemic respiratory failure Altered mental status Pneumonia, likely gram negative Epistaxis Atelectasis Events: Patient seen and examined Low oxygen requirements On 2 liters per minute nasal cannula No distress BiPAP at nighttime CXR reviewed, demonstrates bibasilar atelectasis or pneumonia. Bilateral pleural effusions. Head of bed elevation Aspiration precautions Continue antibiotics Incentive spirometry Eliquis BID EEG is being performed Follow up Neurology recommendations Labs and imaging reviewed Rest of plan as noted below Plan: Supplemental oxygen Titrate to keep O2 sats above 92%. Incentive spirometry Continue antibiotics Bronchodilators Eliquis BID Monitor renal function Monitor electrolytes Supplement as needed DVT prophylaxis Prognosis: Poor given patient's multiple co-morbidities. Rest of plan per hospitalist and other consultants. Thank you Dr. Nix for allowing me to participate in this patient's care. Further recommendations will depend on the patient's clinical course. Please do not hesitate to contact me if you have any questions or concerns. This medical document was created using an electronic medical record system with [employer] computerized dictation system. Although these documentations are being carefully reviewed, there may still be some phonetic and typographical changes. The errors are purely typographical, due to imperfection on the software program, and do not reflect any compromise in the patient's medical care. Dietary Evaluation Review Recommendations by RD: Protein Supplementation Comments: 1) Initiate Ensure Enlive qd. Encourage optimal intake 2) Initiate Pro-Stat @ 30 mL qd. 3) Refer to outpatient RD for weight management 4) Follow-up with cardiology and nephrology 5) Continue to monitor I&O, labs, and skin integrity Expected Outcomes/Goals: 1) appetite and labs to improve 2) wound to improve 3) f/u in 3-5 days Plan discussed with: Patient, Other (TOMASZ Villarreal) RYAN FLOOD MD October 13, 2024 23:18
[2024-10-14] VITALS (15 sets, daily range): BP systolic 83–113; BP diastolic 37–51; PULSE 47–84; RESP 16–20; TEMP 97.6–98.5; O2SAT 7–100
--- NOTE | 2024-10-14 00:47 | DVHEEG2 ---
Neurology EEG Procedural Note Procedural Note EXAM DATE: 10/13/2024 REFERRING DOCTOR: Dr. Landon TECHNIQUE: Eighteen channels of EEG, 2 channels of EOG, and 1 channel of EKG were recorded using the [employer] 10/20 system. CLINICAL DATA: The patient was referred for an EEG evaluation for the evidence of seizure disorder. MEDICATIONS: See the chart BACKGROUND ACTIVITY: There was significant amount of electrode artifacts in the recording. The EEG showed diffuse low-amplitude theta activity over both hemispheres, that was reactive to external stimuli ACTIVATION: Hyperventilation: Not done Photic Stimulation: Not done Sleep: Not seen IMPRESSION: This is a moderately abnormal EEG, this EEG seen in moderate ce rebral dysfunction due to metabolic/hypoxic encephalopathy or medication effects, please correlate clinically The EKG channel showed an irregular heart rate of 78/[place] [address] TREVOR LANDON MD October 14, 2024 00:47
--- NOTE | 2024-10-14 06:03 | DVHPN2 ---
Progress Note - Dictate Date Seen: October 14, 2024 Medical Necessity Reason Pt with a Central, PICC or Fol: Yes The following are medically ne: Esquivel Catheter Reason for esquivel catheter: Strict I&O vital signs Vital Sign Date Time Temp Pulse Resp B/P (MAP) Pulse Ox O2 Delivery O2 Flow Rate FiO2 10/14/24 05:00 97.8 78 18 97/50 (66) 95 97.8 10/13/24 20:00 Nasal Cannula* 2 28 Total Intake and Output 10/13/24 10/13/24 10/14/24 15:00 23:00 07:00 Intake Total 50 ml 580 ml 425 ml Output Total 975 ml 850 ml Balance 50 ml -395 ml -425 ml medications Current Medications Medications Dose Ordered Sig/Rj Route Start Time Stop Time Status Last Admin Dose Admin Acetaminophen 325 mg Q4HP PRN PO 10/08/24 22:30 Acetaminophen/ Hydrocodone Bitart 1 tab Q4HP PRN PO 10/08/24 22:30 10/14/24 00:16 1 TAB Ondansetron HCl 4 mg Q4HP PRN IV 10/08/24 22:30 Nitroglycerin 0.4 mg Q5MINP PRN SL 10/08/24 22:30 Morphine Sulfate 2 mg Q30M PRN IV 10/08/24 22:30 Haloperidol Lactate 5 mg [id number] PRN IM 10/09/24 04:15 10/09/24 12:20 5 MG Sacubitril/ Valsartan 1 tab BID PO 10/09/24 10:00 10/13/24 22:00 1 TAB Enoxaparin Sodium 120 mg DAILY SC 10/09/24 10:00 UNV Digoxin 0.125 mg DAILY@LUNCH PO 10/09/24 12:00 10/11/24 13:08 0.125 MG Levothyroxine Sodium 112 mcg QAM PO 10/10/24 07:00 10/13/24 05:51 112 MCG Ipratropium [place] 0.5 mg Q6HWA NEB 10/09/24 12:00 10/12/24 19:26 0.5 MG Albuterol 2.5 mg Q6HPRN PRN NEB 10/09/24 11:00 10/11/24 18:27 2.5 MG Apixaban 5 mg BID PO 10/10/24 22:00 10/13/24 22:00 5 MG Levofloxacin/ Dextrose 100 ml @ 100 mls/hr DAILY IV 10/13/24 11:15 10/13/24 14:08 100 MLS/HR Furosemide 40 mg DAILY IV 10/13/24 11:15 10/13/24 14:08 40 MG laboratory and microbiology Laboratory Tests 10/13/24 11:38 10/13/24 11:35 Test 10/13/24 11:35 Range/Units Serum Glucose 109 H 74-106 mg/dL Assessment/Plan Patient is a 79 year old female who was transferred from [facility]. She was transferred for nosebleed. Does have old history of atrial fibrillation and is on Xarelto as outpatient. She is confused and not source of history. Cardiology was involved for cardiac aspects of care and questioning if the anticoagulation needs to be continued. It seems that the patient was recently in the hospital with encephalopathy/sepsis. Information was obtained by reviewing the chart and communicating with staff. There is no report of chest pain. There is no report of hypotension. Obese lady. Lying flat in bed. Not in acute distress. No active nosebleed at the time of evaluation. Mucosa is pink and wet. Not using accessory muscles of breathing. Scattered rhonchi in the lungs is heard. No rales. Cardiac: Irregular, no thrill. Systolic murmur 2/6 in the apex is heard. Abdomen is soft. There is no gross mass/hepatomegaly. Extremities reveal 1+ edema bilaterally. Past medical history includes morbid obesity, atrial fibrillation, anemia, CKD, hypothyroidism, depression, GERD, hyperlipidemia, diverticulosis, moderate aortic stenosis and heart failure. She was recently in the hospital. Encephalopathy/sepsis. She was recently treated for urosepsis. Echocardiogram of September 24, 2024 had revealed ejection fraction of 40-45%, moderate aortic stenosis and mild tricuspid regurgitation. Troponin (high sensitive): Chest x-ray reported: IMPRESSION: 1. Bilateral perihilar infiltrates with involvement of the right upper lobe and left lower lobe. CT Brain revealed no acute intracranial abnormality. EEG revealed this is a moderately abnormal EEG, this EEG seen in moderate cerebral dysfunction due to metabolic/hypoxic encephalopathy or medication effects, please correlate clinically EKG revealed atrial fibrillation with moderate ventricular response Tele reveals atrial fibrillation with moderate ventricular response (now rate controlled) Patient is a 79-year-old female who presented with nosebleed. It seems that the nosebleed has been mostly secondary to patient's probing on it (as per nurse). Does have baseline history of atrial fibrillation and heart failure. Recognizing comorbidities, CHADS-VASc score is high and long-term full anticoagulation is advised to prevent CVA and embolic problems. At this point, as the patient was having nosebleed, you can hold anticoagulation. Patient is somewhat confused and encephalopathy can be considered. Nosebleed Atrial fibrillation, chronic Heart failure, diastolic Valvular heart disease Moderate aortic stenosis Encephalopathy Morbid obesity Hypothyroidism Hyperlipidemia Cardiac suggestion for management: Manage on telemetry Follow-up electrolytes and kidney function tests and correct abnormalities Presently, can hold anticoagulation until resolution of the nosebleed (resolved) Long-term continuation of anticoagulation is advised. Guideline directed medical therapy for systolic heart failure is advised On Entresto 24-26mg twice daily Neurology evaluation for encephalopathy ongoing Further evaluation and management depends on the above and clinical course Thank you for consultation A total of 75 minutes was spent reviewing the patient record, examining the patient, making a diagnostic and therapeutic plan, discussing this plan with medical personnel, following up on diagnostic studies and following the patient for clinical stability excluding any and all procedures. At least 50% of this time was spent in direct, [id number] contact. Thank you for allowing me to participate in this patient's care. Further recommendations will depend on patient's clinical course. Please do not hesitate to contact me if you have any questions or concerns. This medical document was created using electronic medical record system with [employer] computerized dictation system. Although this document has been carefully reviewed, there may still be some phonetic and typographical errors. These areas are purely typographical due to the imperfection of the software programs, and do not reflect any compromise in the patient's medical care. Dietary Evaluation Review Recommendations by RD: Protein Supplementation Comments: 1) Initiate Ensure Enlive qd. Encourage optimal intake 2) Initiate Pro-Stat @ 30 mL qd. 3) Refer to outpatient RD for weight management 4) Follow-up with cardiology and nephrology 5) Continue to monitor I&O, labs, and skin integrity Expected Outcomes/Goals: 1) appetite and labs to improve 2) wound to improve 3) f/u in 3-5 days Plan discussed with: Patient (Patient and Primary RN ) ZULMA GORDON October 14, 2024 06:03
[2024-10-14] MEDS: FUROSEMIDE 40 MG/4 ML VIAL IV ONE (09:30)
[2024-10-14] MEDS: SODIUM CHL 0.9% 100 ML IV ONE (10:38)
[2024-10-14] MEDS: POTASSIUM CHL 20MEQ/50ML 50 ML IV SCH (12:48)
[2024-10-14] MEDS: POTASSIUM PHOSPHATE 26.4 MEQ in SODIUM CHL 0.9% 100 ML IV ONE (15:42)
--- NOTE | 2024-10-14 20:43 | DVHPN2 ---
Progress Note - Dictate Date Seen: October 14, 2024 Medical Necessity Reason Pt with a Central, PICC or Fol: Yes The following are medically ne: Esquivel Catheter Reason for esquivel catheter: Strict I&O vital signs Vital Sign Date Time Temp Pulse Resp B/P (MAP) Pulse Ox O2 Delivery O2 Flow Rate FiO2 10/14/24 20:00 76 18 7 Nasal Cannula* 2 28 10/14/24 17:00 97.8 113/43 (66) 97.8 Total Intake and Output 10/13/24 10/13/24 10/14/24 15:00 23:00 07:00 Intake Total 50 ml 580 ml 425 ml Output Total 975 ml 850 ml Balance 50 ml -395 ml -425 ml medications Current Medications Medications Dose Ordered Sig/Rj Route Start Time Stop Time Status Last Admin Dose Admin Acetaminophen 325 mg Q4HP PRN PO 10/08/24 22:30 Acetaminophen/ Hydrocodone Bitart 1 tab Q4HP PRN PO 10/08/24 22:30 10/14/24 00:16 1 TAB Ondansetron HCl 4 mg Q4HP PRN IV 10/08/24 22:30 Nitroglycerin 0.4 mg Q5MINP PRN SL 10/08/24 22:30 Morphine Sulfate 2 mg Q30M PRN IV 10/08/24 22:30 Haloperidol Lactate 5 mg [id number] PRN IM 10/09/24 04:15 10/09/24 12:20 5 MG Sacubitril/ Valsartan 1 tab BID PO 10/09/24 10:00 10/13/24 22:00 1 TAB Enoxaparin Sodium 120 mg DAILY SC 10/09/24 10:00 UNV Digoxin 0.125 mg DAILY@LUNCH PO 10/09/24 12:00 10/11/24 13:08 0.125 MG Levothyroxine Sodium 112 mcg QAM PO 10/10/24 07:00 10/14/24 06:05 112 MCG Ipratropium [place] 0.5 mg Q6HWA NEB 10/09/24 12:00 10/14/24 18:32 0.5 MG Albuterol 2.5 mg Q6HPRN PRN NEB 10/09/24 11:00 10/14/24 18:32 2.5 MG Apixaban 5 mg BID PO 10/10/24 22:00 10/14/24 10:36 5 MG Levofloxacin/ Dextrose 100 ml @ 100 mls/hr DAILY IV 10/13/24 11:15 10/14/24 10:36 100 MLS/HR Furosemide 40 mg DAILY IV 10/13/24 11:15 10/13/24 14:08 40 MG objective General Appearance: alert, no distress HEENT: EOMI, PERRLA, normal external inspect of ears, no icterus, no nasal drainage Neck: no carotid bruit, no jugular venous distention (JVD), no lymphadenopathy Chest: normal thorax Respiratory: clear to auscultation, normal air movement Cardiovascular: regular rate and rhythm, no diastolic murmur, no jugular venous distention (JVD), no rub, no systolic murmur Abdominal: soft, no hepatomegaly, no mass, no splenomegaly, no tenderness Genitourinary: grossly normal external Musculoskeletal: no joint tenderness, no swelling Extremities: normal pulses, no calf tenderness, no clubbing, no cyanosis, no edema Skin: no bruising, no jaundice, no rash Neurological: alert, No focal deficit laboratory and microbiology Laboratory Tests 10/13/24 11:38 10/13/24 11:35 Test 10/13/24 11:35 Range/Units Serum Glucose 109 H 74-106 mg/dL Problem List 1. Acute hypoxic respiratory failure Supplemental O2 2. Acute blood loss from epistaxis Medication, monitoring 3. Hypernatremia Medication, monitoring 4. PNA Medication, monitoring 5. Persistent atrial fibrillation Monitor EKG 6. Chronic anticoagulation on Xarelto Monitoring 7. Recent history of sepsis due to UTI with MDRO Repeat urinalysis 8. hyperbilirubinemia CMP 9. Metabolic encephalopathy Monitor neuro status, neurology consult Assessment/Plan Subjective: Patient is more awake and alert. Objective: Patient's mentation appears to be more at her baseline. Patient was admitted for acute hypoxic respiratory failure related to pneumonia. Patient was recently seen at this facility for sepsis. Patient is doing much better. Plan: Continue Levaquin IV. Continue physical therapy. DC planning back to senior care facility in AM. Dietary Evaluation Review Recommendations by RD: Protein Supplementation Comments: 1) Initiate Ensure Enlive qd. Encourage optimal intake 2) Initiate Pro-Stat @ 30 mL qd. 3) Refer to outpatient RD for weight management 4) Follow-up with cardiology and nephrology 5) Continue to monitor I&O, labs, and skin integrity Expected Outcomes/Goals: 1) appetite and labs to improve 2) wound to improve 3) f/u in 3-5 days Plan discussed with: Patient, Other [employer] October 14, 2024 20:43
--- NOTE | 2024-10-14 21:28 | DVHPN2 ---
Progress Note - Dictate Date Seen: October 14, 2024 Medical Necessity Reason Pt with a Central, PICC or Fol: Yes The following are medically ne: Esquivel Catheter Reason for esquivel catheter: Strict I&O Subjective Ms. Ackerman is a 79 years old female with a history of hypertension, dyslipidemia, hypothyroidism, AFib, heart failure, diverticulosis, GERD, obesity, sleep apnea, hypothyroidism, COPD, chronic kidney failure, depression, anxiety, she was admitted to the [facility] her SNF on 10/08/2024 with a chief complaint of altered mental status. I have seen and examined the patient, I have talked to her nurse and sitter, she is doing fine, he was doing better earlier today when her family was here with her, she is oriented to person, place, she knows year, reasonable social skills, but she still confused, she does not answer my questions properly sometimes Urinalysis, 10/08/2024: WBC: 13, urine leukocyte esterase: 1+ WBC/HB/PLT/MCV, 10/08/2024: 3.7/10.2/162/82.6 PT/INR/PTT, 10/08/2024: 15.7/1.55/36.5 HCO3, 10/08/2024: > 40, 5: > 40, : 34 10/13/2019 5:33 a.m.. TBI/AST/ALT/AP, 10/11/2024: 1.2/85/22/59 Vitamin B12, 09/24/2024: 2466 TSH, 09/24/2024: 14.28, 10/09/2024: 26.49 EEG, 10/13/2024: a moderately abnormal EEG Chest x-ray, 10/08/2024: 1. Bilateral perihilar infiltrates with involvement of the right upper lobe and left lower lobe. vital signs Vital Sign Date Time Temp Pulse Resp B/P (MAP) Pulse Ox O2 Delivery O2 Flow Rate FiO2 10/14/24 20:00 76 18 7 Nasal Cannula* 2 28 10/14/24 17:00 97.8 113/43 (66) 97.8 Total Intake and Output 10/13/24 10/13/24 10/14/24 15:00 23:00 07:00 Intake Total 50 ml 580 ml 425 ml Output Total 975 ml 850 ml Balance 50 ml -395 ml -425 ml medications Current Medications Medications Dose Ordered Sig/Rj Route Start Time Stop Time Status Last Admin Dose Admin Acetaminophen 325 mg Q4HP PRN PO 10/08/24 22:30 Acetaminophen/ Hydrocodone Bitart 1 tab Q4HP PRN PO 10/08/24 22:30 10/14/24 00:16 1 TAB Ondansetron HCl 4 mg Q4HP PRN IV 10/08/24 22:30 Nitroglycerin 0.4 mg Q5MINP PRN SL 10/08/24 22:30 Morphine Sulfate 2 mg Q30M PRN IV 10/08/24 22:30 Haloperidol Lactate 5 mg [id number] PRN IM 10/09/24 04:15 10/09/24 12:20 5 MG Sacubitril/ Valsartan 1 tab BID PO 10/09/24 10:00 10/13/24 22:00 1 TAB Enoxaparin Sodium 120 mg DAILY SC 10/09/24 10:00 UNV Digoxin 0.125 mg DAILY@LUNCH PO 10/09/24 12:00 10/11/24 13:08 0.125 MG Levothyroxine Sodium 112 mcg QAM PO 10/10/24 07:00 10/14/24 06:05 112 MCG Ipratropium [place] 0.5 mg Q6HWA NEB 10/09/24 12:00 10/14/24 18:32 0.5 MG Albuterol 2.5 mg Q6HPRN PRN NEB 10/09/24 11:00 10/14/24 18:32 2.5 MG Apixaban 5 mg BID PO 10/10/24 22:00 10/14/24 10:36 5 MG Levofloxacin/ Dextrose 100 ml @ 100 mls/hr DAILY IV 10/13/24 11:15 10/14/24 10:36 100 MLS/HR Furosemide 40 mg DAILY IV 10/13/24 11:15 10/13/24 14:08 40 MG objective General: the patient is well developed and nourished. No acute distress. MENTAL STATUS: Subjective SPEECH, LANGUAGE, HIGHER CORTICAL FUNCTION: no aphasia or dysathria. CRANIAL NERVES: Pupils are equal, round and reactive. EOMs full and conjugate. No nystagmus. Facial sensation intact in all three divisions bilaterally. Mandibular strength intact. Facial muscles symmetrical and strength intact. SENSATION: Sensation to touch and pinprick is normal. MOTOR: Normal tone in the upper and lower extremity. Normal muscle bulk. No fasciculations. No abnormal movements or posturing. Muscle power in the upper extremity is about 4/5, She moves the legs, muscle strength is no less than 4/5 REFLEXES: Deep tendon reflexes are symmetrical. No pathological reflexes. CEREBELLAR/COORDINATION: Deferred GAIT/STATION: deferred. laboratory and microbiology Laboratory Tests 10/13/24 11:38 10/13/24 11:35 Test 10/13/24 11:35 Range/Units Serum Glucose 109 H 74-106 mg/dL Problem List Altered mental status Metabolic encephalopathy secondary to chronic respiratory failure, UTI, pneumonia Partial complex seizure, less likely COPD/chronic respiratory failure ? Obesity hypoventilation syndrome Hypothyroidism AFib Assessment/Plan Monitoring Supportive treatment Telemetry BiPAP, declined by the patient IV antibiotics Levothyroxine Eliquis Up to chair Physical therapy More recommendation per clinical course This medical document was created using an electronic medical record system with [employer] dictation system. Although this document has been carefully reviewed, there may still be some phonetic and typographical errors. These areas are purely typographical due to imperfections of the software programs, and do not reflect any compromise in the patient's medical care. Prognosis poor Dietary Evaluation Review Recommendations by RD: Protein Supplementation Comments: 1) Initiate Ensure Enlive qd. Encourage optimal intake 2) Initiate Pro-Stat @ 30 mL qd. 3) Refer to outpatient RD for weight management 4) Follow-up with cardiology and nephrology 5) Continue to monitor I&O, labs, and skin integrity Expected Outcomes/Goals: 1) appetite and labs to improve 2) wound to improve 3) f/u in 3-5 days Plan discussed with: Other TREVOR LANDON MD October 14, 2024 21:28
--- NOTE | 2024-10-14 23:01 | DVHPN2 ---
Progress Note - Dictate Date Seen: October 14, 2024 Medical Necessity Reason Pt with a Central, PICC or Fol: Yes The following are medically ne: Esquivel Catheter Reason for esquivel catheter: Strict I&O Subjective Patient seen and examined at bedside. Remains on supplemental oxygen Overnight events reviewed. vital signs Vital Sign Date Time Temp Pulse Resp B/P (MAP) Pulse Ox O2 Delivery O2 Flow Rate FiO2 10/14/24 20:00 76 18 7 Nasal Cannula* 2 28 10/14/24 17:00 97.8 113/43 (66) 97.8 Total Intake and Output 10/13/24 10/13/24 10/14/24 15:00 23:00 07:00 Intake Total 50 ml 580 ml 425 ml Output Total 975 ml 850 ml Balance 50 ml -395 ml -425 ml medications Current Medications Medications Dose Ordered Sig/Rj Route Start Time Stop Time Status Last Admin Dose Admin Acetaminophen 325 mg Q4HP PRN PO 10/08/24 22:30 Acetaminophen/ Hydrocodone Bitart 1 tab Q4HP PRN PO 10/08/24 22:30 10/14/24 00:16 1 TAB Ondansetron HCl 4 mg Q4HP PRN IV 10/08/24 22:30 Nitroglycerin 0.4 mg Q5MINP PRN SL 10/08/24 22:30 Morphine Sulfate 2 mg Q30M PRN IV 10/08/24 22:30 Haloperidol Lactate 5 mg [id number] PRN IM 10/09/24 04:15 10/09/24 12:20 5 MG Sacubitril/ Valsartan 1 tab BID PO 10/09/24 10:00 10/13/24 22:00 1 TAB Enoxaparin Sodium 120 mg DAILY SC 10/09/24 10:00 UNV Digoxin 0.125 mg DAILY@LUNCH PO 10/09/24 12:00 10/11/24 13:08 0.125 MG Levothyroxine Sodium 112 mcg QAM PO 10/10/24 07:00 10/14/24 06:05 112 MCG Ipratropium [place] 0.5 mg Q6HWA NEB 10/09/24 12:00 10/14/24 18:32 0.5 MG Albuterol 2.5 mg Q6HPRN PRN NEB 10/09/24 11:00 10/14/24 18:32 2.5 MG Apixaban 5 mg BID PO 10/10/24 22:00 10/14/24 10:36 5 MG Levofloxacin/ Dextrose 100 ml @ 100 mls/hr DAILY IV 10/13/24 11:15 10/14/24 10:36 100 MLS/HR Furosemide 40 mg DAILY IV 10/13/24 11:15 10/13/24 14:08 40 MG objective Gen.: Patient lying in bed in no apparent distress. On supplemental oxygen. Head: Normocephalic, atraumatic. Eyes: EOMI/PERRLA. Ears: Normal hearing. Normal anatomy. Neck/trachea: Trachea midline, supple. Nose: Normal external anatomy. Mouth: Moist mucous membranes. Chest: Decreased air entry bilaterally. No wheezing or rhonchi. Cardiovascular: Positive S1, positive S2. Regular rate and rhythm. Abdomen: Positive bowel sounds in all 4 quadrants. Soft, non-tender, non- distended. : Deferred. Rectal: Deferred. Skin: Warm, dry. Intact. Extremities: 2+ radial pulses bilaterally. No lower extremity edema. Neuro: Awake, alert, oriented x3. No gross motor or sensory deficits. Cranial nerves II through XII intact. Gait not assessed. laboratory and microbiology Laboratory Tests 10/13/24 11:38 10/13/24 11:35 Test 10/13/24 11:35 Range/Units Serum Glucose 109 H 74-106 mg/dL Assessment/Plan Impression: Acute hypoxemic respiratory failure Altered mental status Pneumonia, likely gram negative Epistaxis Atelectasis Events: Patient seen and examined Low oxygen requirements On 2 liters per minute nasal cannula Taper O2 as tolerated BiPAP PRN Head of bed elevation Aspiration precautions Continue bronchodilators Continue antibiotics Incentive spirometry Eliquis BID Diurese w/ Lasix as tolerated Monitor renal function Monitor electrolytes. Supplement as needed Potassium supplementation Poor prognosis EEG reviewed, moderately abnormal EEG. This EEG is seen in moderate cerebral dysfunction due to metabolic/hypoxic encephalopathy or medication effects, please correlate clinically Neurology recommendations appreciated CXR on 10/13/24 demonstrated bibasilar atelectasis or pneumonia. Bilateral pleural effusions. Labs and imaging reviewed Rest of plan as noted below Plan: Supplemental oxygen Titrate to keep O2 sats above 92%. Incentive spirometry Continue antibiotics Bronchodilators Eliquis BID Monitor renal function Monitor electrolytes Supplement as needed DVT prophylaxis Prognosis: Poor given patient's multiple co-morbidities. Rest of plan per hospitalist and other consultants. Thank you Dr. iNx for allowing me to participate in this patient's care. Further recommendations will depend on the patient's clinical course. Please do not hesitate to contact me if you have any questions or concerns. This medical document was created using an electronic medical record system with [employer] dictation system. Although these documentations are being carefully reviewed, there may still be some phonetic and typographical changes. The errors are purely typographical, due to imperfection on the software program, and do not reflect any compromise in the patient's medical care. Dietary Evaluation Review Recommendations by RD: Protein Supplementation Comments: 1) Initiate Ensure Enlive qd. Encourage optimal intake 2) Initiate Pro-Stat @ 30 mL qd. 3) Refer to outpatient RD for weight management 4) Follow-up with cardiology and nephrology 5) Continue to monitor I&O, labs, and skin integrity Expected Outcomes/Goals: 1) appetite and labs to improve 2) wound to improve 3) f/u in 3-5 days Plan discussed with: Patient, Other (RN) RYAN FLOOD MD October 14, 2024 23:01
[2024-10-15] VITALS (19 sets, daily range): BP systolic 81–127; BP diastolic 29–74; PULSE 64–89; RESP 12–84; TEMP 97.4–98.1; O2SAT 92–100
--- NOTE | 2024-10-15 09:53 | DVHPN2 ---
Progress Note - Dictate Date Seen: October 15, 2024 Medical Necessity Reason Pt with a Central, PICC or Fol: Yes The following are medically ne: Esquivel Catheter Reason for esquivel catheter: Strict I&O vital signs Vital Sign Date Time Temp Pulse Resp B/P (MAP) Pulse Ox O2 Delivery O2 Flow Rate FiO2 10/15/24 09:41 81/39 10/15/24 08:10 Nasal Cannula* 2 28 10/15/24 06:50 68 16 98 10/15/24 05:00 97.9 97.9 Total Intake and Output 10/14/24 10/14/24 10/15/24 15:00 23:00 07:00 Intake Total 200 ml 602.98 ml 200 ml Output Total 250 ml 150 ml Balance 200 ml 352.98 ml 50 ml medications Current Medications Medications Dose Ordered Sig/Rj Route Start Time Stop Time Status Last Admin Dose Admin Acetaminophen 325 mg Q4HP PRN PO 10/08/24 22:30 Acetaminophen/ Hydrocodone Bitart 1 tab Q4HP PRN PO 10/08/24 22:30 10/14/24 23:22 1 TAB Ondansetron HCl 4 mg Q4HP PRN IV 10/08/24 22:30 Nitroglycerin 0.4 mg Q5MINP PRN SL 10/08/24 22:30 Morphine Sulfate 2 mg Q30M PRN IV 10/08/24 22:30 Haloperidol Lactate 5 mg [id number] PRN IM 10/09/24 04:15 10/09/24 12:20 5 MG Sacubitril/ Valsartan 1 tab BID PO 10/09/24 10:00 10/14/24 23:16 1 TAB Enoxaparin Sodium 120 mg DAILY SC 10/09/24 10:00 UNV Digoxin 0.125 mg DAILY@LUNCH PO 10/09/24 12:00 10/11/24 13:08 0.125 MG Levothyroxine Sodium 112 mcg QAM PO 10/10/24 07:00 10/14/24 06:05 112 MCG Ipratropium [place] 0.5 mg Q6HWA NEB 10/09/24 12:00 10/15/24 06:49 0.5 MG Albuterol 2.5 mg Q6HPRN PRN NEB 10/09/24 11:00 10/15/24 06:49 2.5 MG Apixaban 5 mg BID PO 10/10/24 22:00 10/15/24 09:40 5 MG Levofloxacin/ Dextrose 100 ml @ 100 mls/hr DAILY IV 10/13/24 11:15 10/15/24 09:37 100 MLS/HR Furosemide 40 mg DAILY IV 10/13/24 11:15 10/13/24 14:08 40 MG laboratory and microbiology Laboratory Tests 10/13/24 11:38 10/13/24 11:35 Test 10/13/24 11:35 Range/Units Serum Glucose 109 H 74-106 mg/dL Assessment/Plan Patient is a 79 year old female who was transferred from [facility]. She was transferred for nosebleed. Does have old history of atrial fibrillation and is on Xarelto as outpatient. She is confused and not source of history. Cardiology was involved for cardiac aspects of care and questioning if the anticoagulation needs to be continued. It seems that the patient was recently in the hospital with encephalopathy/sepsis. Information was obtained by reviewing the chart and communicating with staff. There is no report of chest pain. There is no report of hypotension. Obese lady. Lying flat in bed. Not in acute distress. No active nosebleed at the time of evaluation. Mucosa is pink and wet. Not using accessory muscles of breathing. Scattered rhonchi in the lungs is heard. No rales. Cardiac: Irregular, no thrill. Systolic murmur 2/6 in the apex is heard. Abdomen is soft. There is no gross mass/hepatomegaly. Extremities reveal 1+ edema bilaterally. Past medical history includes morbid obesity, atrial fibrillation, anemia, CKD, hypothyroidism, depression, GERD, hyperlipidemia, diverticulosis, moderate aortic stenosis and heart failure. She was recently in the hospital. Encephalopathy/sepsis. She was recently treated for urosepsis. Echocardiogram of September 24, 2024 had revealed ejection fraction of 40-45%, moderate aortic stenosis and mild tricuspid regurgitation. Troponin (high sensitive): Chest x-ray reported: IMPRESSION: 1. Bilateral perihilar infiltrates with involvement of the right upper lobe and left lower lobe. Repeat x-ray revealed IMPRESSION: 1. Cardiomegaly with CHF. Small left pleural effusion CT Brain revealed no acute intracranial abnormality. EEG revealed this is a moderately abnormal EEG, this EEG seen in moderate cerebral dysfunction due to metabolic/hypoxic encephalopathy or medication effects, please correlate clinically EKG revealed atrial fibrillation with moderate ventricular response Tele reveals atrial fibrillation with moderate ventricular response (now rate controlled) Patient is a 79-year-old female who presented with nosebleed. It seems that the nosebleed has been mostly secondary to patient's probing on it (as per nurse). Does have baseline history of atrial fibrillation and heart failure. Recognizing comorbidities, CHADS-VASc score is high and long-term full anticoagulation is advised to prevent CVA and embolic problems. At this point, as the patient was having nosebleed, you can hold anticoagulation. Patient is somewhat confused and encephalopathy can be considered. Nosebleed Atrial fibrillation, chronic Heart failure, diastolic Valvular heart disease Moderate aortic stenosis Encephalopathy Morbid obesity Hypothyroidism Hyperlipidemia Cardiac suggestion for management: Manage on telemetry Follow-up electrolytes and kidney function tests and correct abnormalities Presently, can hold anticoagulation until resolution of the nosebleed (resolved) Long-term continuation of anticoagulation is advised. Guideline directed medical therapy for systolic heart failure is advised On Entresto 24-26mg twice daily Neurology evaluation for encephalopathy ongoing Further evaluation and management depends on the above and clinical course Thank you for consultation A total of 75 minutes was spent reviewing the patient record, examining the patient, making a diagnostic and therapeutic plan, discussing this plan with medical personnel, following up on diagnostic studies and following the patient for clinical stability excluding any and all procedures. At least 50% of this time was spent in direct, [id number] contact. Thank you for allowing me to participate in this patient's care. Further recommendations will depend on patient's clinical course. Please do not hesitate to contact me if you have any questions or concerns. This medical document was created using electronic medical record system with [employer] computerized dictation system. Although this document has been carefully reviewed, there may still be some phonetic and typographical errors. These areas are purely typographical due to the imperfection of the software programs, and do not reflect any compromise in the patient's medical care. Dietary Evaluation Review Recommendations by RD: Protein Supplementation Comments: 1) Initiate Ensure Enlive qd. Encourage optimal intake 2) Initiate Pro-Stat @ 30 mL qd. 3) Refer to outpatient RD for weight management 4) Follow-up with cardiology and nephrology 5) Continue to monitor I&O, labs, and skin integrity Expected Outcomes/Goals: 1) appetite and labs to improve 2) wound to improve 3) f/u in 3-5 days Plan discussed with: Patient (Patient and Primary RN ) ZULMA GORDON October 15, 2024 09:53
[2024-10-15] MEDS ORDERED: ALBUMIN 25% 100 ML IV ONE (10:00)
--- NOTE | 2024-10-15 10:47 | DVHPN2 ---
Progress Note - Dictate Date Seen: October 15, 2024 Medical Necessity Reason Pt with a Central, PICC or Fol: Yes The following are medically ne: Esquivel Catheter Reason for sequivel catheter: Strict I&O vital signs Vital Sign Date Time Temp Pulse Resp B/P (MAP) Pulse Ox O2 Delivery O2 Flow Rate FiO2 10/15/24 09:41 81/39 10/15/24 08:10 Nasal Cannula* 2 28 10/15/24 06:50 68 16 98 10/15/24 05:00 97.9 97.9 Total Intake and Output 10/14/24 10/14/24 10/15/24 15:00 23:00 07:00 Intake Total 200 ml 602.98 ml 200 ml Output Total 250 ml 150 ml Balance 200 ml 352.98 ml 50 ml medications Current Medications Medications Dose Ordered Sig/Rj Route Start Time Stop Time Status Last Admin Dose Admin Acetaminophen 325 mg Q4HP PRN PO 10/08/24 22:30 Acetaminophen/ Hydrocodone Bitart 1 tab Q4HP PRN PO 10/08/24 22:30 10/14/24 23:22 1 TAB Ondansetron HCl 4 mg Q4HP PRN IV 10/08/24 22:30 Nitroglycerin 0.4 mg Q5MINP PRN SL 10/08/24 22:30 Morphine Sulfate 2 mg Q30M PRN IV 10/08/24 22:30 Haloperidol Lactate 5 mg [id number] PRN IM 10/09/24 04:15 10/09/24 12:20 5 MG Sacubitril/ Valsartan 1 tab BID PO 10/09/24 10:00 10/14/24 23:16 1 TAB Enoxaparin Sodium 120 mg DAILY SC 10/09/24 10:00 UNV Digoxin 0.125 mg DAILY@LUNCH PO 10/09/24 12:00 10/11/24 13:08 0.125 MG Levothyroxine Sodium 112 mcg QAM PO 10/10/24 07:00 10/14/24 06:05 112 MCG Ipratropium [place] 0.5 mg Q6HWA NEB 10/09/24 12:00 10/15/24 06:49 0.5 MG Albuterol 2.5 mg Q6HPRN PRN NEB 10/09/24 11:00 10/15/24 06:49 2.5 MG Apixaban 5 mg BID PO 10/10/24 22:00 10/15/24 09:40 5 MG Levofloxacin/ Dextrose 100 ml @ 100 mls/hr DAILY IV 10/13/24 11:15 10/15/24 09:37 100 MLS/HR objective General Appearance: alert, no distress HEENT: EOMI, PERRLA, normal external inspect of ears, no icterus, no nasal drainage Neck: no carotid bruit, no jugular venous distention (JVD), no lymphadenopathy Chest: normal thorax Respiratory: clear to auscultation, normal air movement Cardiovascular: regular rate and rhythm, no diastolic murmur, no jugular venous distention (JVD), no rub, no systolic murmur Abdominal: soft, no hepatomegaly, no mass, no splenomegaly, no tenderness Genitourinary: grossly normal external Musculoskeletal: no joint tenderness, no swelling Extremities: normal pulses, no calf tenderness, no clubbing, no cyanosis, no edema Skin: no bruising, no jaundice, no rash Neurological: alert, No focal deficit laboratory and microbiology Laboratory Tests 10/13/24 11:38 10/13/24 11:35 Test 10/13/24 11:35 Range/Units Serum Glucose 109 H 74-106 mg/dL Problem List 1. Acute hypoxic respiratory failure Supplemental O2 2. Acute blood loss from epistaxis Medication, monitoring 3. Hypernatremia Medication, monitoring 4. PNA Medication, monitoring 5. Persistent atrial fibrillation Monitor EKG 6. Chronic anticoagulation on Xarelto Monitoring 7. Recent history of sepsis due to UTI with MDRO Repeat urinalysis 8. hyperbilirubinemia CMP 9. Metabolic encephalopathy Monitor neuro status, neurology consult Assessment/Plan Subjective: Patient is awake and alert. Objective: Mentation is now at baseline. Admitted for acute hypoxic respiratory failure and sepsis due to community-acquired pneumonia. Antibiotics were changed to Levaquin. Patient remains weak. Lasix was discontinued today. Albumin was given for hypotension. Plan: Continue current treatment, plan for discharge to residential facility possibly tomorrow if vitals remain stable. Dietary Evaluation Review Recommendations by RD: Protein Supplementation Comments: 1) Initiate Ensure Enlive qd. Encourage optimal intake 2) Initiate Pro-Stat @ 30 mL qd. 3) Refer to outpatient RD for weight management 4) Follow-up with cardiology and nephrology 5) Continue to monitor I&O, labs, and skin integrity Expected Outcomes/Goals: 1) appetite and labs to improve 2) wound to improve 3) f/u in 3-5 days Plan discussed with: Patient, Other P[employer] RECEIVER October 15, 2024 10:47
[2024-10-15] MEDS: ALBUMIN 25% 100 ML IV ONE (11:25)
--- NOTE | 2024-10-15 11:40 | DVH ---
INDICATION: heart failure TECHNIQUE: Frontal view of the chest. COMPARISON: XY CHEST XRAY 1 VIEW on DOS: 10/13/24, XY CHEST PORTABLE on DOS: 10/08/24, XY CHEST PORTABLE on DOS: 09/24/24, XY CHEST PORTABLE on DOS: 09/23/24 FINDINGS: Right right PICC with tip in the SVC.. Cardiomegaly. Small left pleural effusion. The lungs are beatris r. The bony structures of the chest are intact without fracture. IMPRESSION: 1. Cardiomegaly with CHF. Small left pleural effusion
--- NOTE | 2024-10-15 23:41 | DVHPN2 ---
Progress Note - Dictate Date Seen: October 15, 2024 Medical Necessity Reason Pt with a Central, PICC or Fol: Yes The following are medically ne: Esquivel Catheter Reason for esquivel catheter: Strict I&O Subjective Ms. Ackerman is a 79 years old female with a history of hypertension, dyslipidemia, hypothyroidism, AFib, heart failure, diverticulosis, GERD, obesity, sleep apnea, hypothyroidism, COPD, chronic kidney failure, depression, anxiety, she was admitted to the [facility] her SNF on 10[facility]24 with a chief complaint of altered mental status. I have seen and examined the patient, I have talked to her nurse and sitter, she is doing , she was oriented to person, place, she knows year and the month, she was able to maintain a better conversation, but he also talked about something not relevant to my questions Urinalysis, 10/08/2024: WBC: 13, urine leukocyte esterase: 1+ WBC/HB/PLT/MCV, 10/08/2024: 3.7/10.2/162/82.6 PT/INR/PTT, 10/08/2024: 15.7/1.55/36.5 HCO3, 10/08/2024: > 40, 5: > 40, : 34 10/13/2019 5:33 a.m.. TBI/AST/ALT/AP, 10/11/2024: 1.2/85/22/59 Vitamin B12, 09/24/2024: 2466 TSH, 09/24/2024: 14.28, 10/09/2024: 26.49 EEG, 10/13/2024: a moderately abnormal EEG Chest x-ray, 10/08/2024: 1. Bilateral perihilar infiltrates with involvement of the right upper lobe and left lower lobe. vital signs Vital Sign Date Time Temp Pulse Resp B/P (MAP) Pulse Ox O2 Delivery O2 Flow Rate FiO2 10/15/24 21:00 98.1 71 20 127/34 (65) 98 98.1 10/15/24 19:42 Nasal Cannula* 2 28 Total Intake and Output 10/14/24 10/14/24 10/15/24 15:00 23:00 07:00 Intake Total 200 ml 602.98 ml 200 ml Output Total 250 ml 150 ml Balance 200 ml 352.98 ml 50 ml medications Current Medications Medications Dose Ordered Sig/Rj Route Start Time Stop Time Status Last Admin Dose Admin Acetaminophen 325 mg Q4HP PRN PO 10/08/24 22:30 Acetaminophen/ Hydrocodone Bitart 1 tab Q4HP PRN PO 10/08/24 22:30 10/14/24 23:22 1 TAB Ondansetron HCl 4 mg Q4HP PRN IV 10/08/24 22:30 Nitroglycerin 0.4 mg Q5MINP PRN SL 10/08/24 22:30 Morphine Sulfate 2 mg Q30M PRN IV 10/08/24 22:30 Haloperidol Lactate 5 mg [id number] PRN IM 10/09/24 04:15 10/09/24 12:20 5 MG Sacubitril/ Valsartan 1 tab BID PO 10/09/24 10:00 10/15/24 21:21 1 TAB Enoxaparin Sodium 120 mg DAILY SC 10/09/24 10:00 UNV Digoxin 0.125 mg DAILY@LUNCH PO 10/09/24 12:00 10/11/24 13:08 0.125 MG Levothyroxine Sodium 112 mcg QAM PO 10/10/24 07:00 10/14/24 06:05 112 MCG Ipratropium [place] 0.5 mg Q6HWA NEB 10/09/24 12:00 10/15/24 18:54 0.5 MG Albuterol 2.5 mg Q6HPRN PRN NEB 10/09/24 11:00 10/15/24 13:02 2.5 MG Apixaban 5 mg BID PO 10/10/24 22:00 10/15/24 21:21 5 MG Levofloxacin/ Dextrose 100 ml @ 100 mls/hr DAILY IV 10/13/24 11:15 10/15/24 09:37 100 MLS/HR objective General: the patient is well developed and nourished. No acute distress. MENTAL STATUS: Subjective SPEECH, LANGUAGE, HIGHER CORTICAL FUNCTION: no aphasia or dysathria. CRANIAL NERVES: Pupils are equal, round and reactive. EOMs full and conjugate. No nystagmus. Facial sensation intact in all three divisions bilaterally. Mandibular strength intact. Facial muscles symmetrical and strength intact. SENSATION: Sensation to touch and pinprick is normal. MOTOR: Normal tone in the upper and lower extremity. Normal muscle bulk. No fasciculations. No abnormal movements or posturing. Muscle power in the upper extremity is about 4/5, She moves the legs, muscle strength is no less than 4/5 REFLEXES: Deep tendon reflexes are symmetrical. No pathological reflexes. CEREBELLAR/COORDINATION: Deferred GAIT/STATION: deferred. laboratory and microbiology Laboratory Tests 10/13/24 11:38 10/13/24 11:35 Test 10/13/24 11:35 Range/Units Serum Glucose 109 H 74-106 mg/dL Problem List Altered mental status Metabolic encephalopathy secondary to chronic respiratory failure, UTI, pneumonia Partial complex seizure, less likely COPD/chronic respiratory failure ? Obesity hypoventilation syndrome Hypothyroidism AFib Assessment/Plan Monitoring Supportive treatment Telemetry BiPAP, declined by the patient IV antibiotics Levothyroxine Eliquis Up to chair Physical therapy More recommendation per clinical course This medical document was created using an electronic medical record system with [employer] dictation system. Although this document has been carefully reviewed, there may still be some phonetic and typographical errors. These areas are purely typographical due to imperfections of the software programs, and do not reflect any compromise in the patient's medical care. Prognosis poor Dietary Evaluation Review Recommendations by RD: Protein Supplementation Comments: 1) Initiate Ensure Enlive qd. Encourage optimal intake 2) Initiate Pro-Stat @ 30 mL qd. 3) Refer to outpatient RD for weight management 4) Follow-up with cardiology and nephrology 5) Continue to monitor I&O, labs, and skin integrity Expected Outcomes/Goals: 1) appetite and labs to improve 2) wound to improve 3) f/u in 3-5 days Plan discussed with: Other TREVOR LANDON MD October 15, 2024 23:41
--- NOTE | 2024-10-15 23:50 | DVHPN2 ---
Progress Note - Dictate Date Seen: October 15, 2024 Medical Necessity Reason Pt with a Central, PICC or Fol: Yes The following are medically ne: Esquivel Catheter Reason for esquivel catheter: Strict I&O Subjective Patient seen and examined at bedside. Remains on supplemental oxygen Overnight events reviewed. vital signs Vital Sign Date Time Temp Pulse Resp B/P (MAP) Pulse Ox O2 Delivery O2 Flow Rate FiO2 10/15/24 21:00 98.1 71 20 127/34 (65) 98 98.1 10/15/24 19:42 Nasal Cannula* 2 28 Total Intake and Output 10/14/24 10/14/24 10/15/24 14:59 22:59 06:59 Intake Total 200 ml 602.98 ml 200 ml Output Total 250 ml 150 ml Balance 200 ml 352.98 ml 50 ml medications Current Medications Medications Dose Ordered Sig/Rj Route Start Time Stop Time Status Last Admin Dose Admin Acetaminophen 325 mg Q4HP PRN PO 10/08/24 22:30 Acetaminophen/ Hydrocodone Bitart 1 tab Q4HP PRN PO 10/08/24 22:30 10/14/24 23:22 1 TAB Ondansetron HCl 4 mg Q4HP PRN IV 10/08/24 22:30 Nitroglycerin 0.4 mg Q5MINP PRN SL 10/08/24 22:30 Morphine Sulfate 2 mg Q30M PRN IV 10/08/24 22:30 Haloperidol Lactate 5 mg [id number] PRN IM 10/09/24 04:15 10/09/24 12:20 5 MG Sacubitril/ Valsartan 1 tab BID PO 10/09/24 10:00 10/15/24 21:21 1 TAB Enoxaparin Sodium 120 mg DAILY SC 10/09/24 10:00 UNV Digoxin 0.125 mg DAILY@LUNCH PO 10/09/24 12:00 10/11/24 13:08 0.125 MG Levothyroxine Sodium 112 mcg QAM PO 10/10/24 07:00 10/14/24 06:05 112 MCG Ipratropium [place] 0.5 mg Q6HWA NEB 10/09/24 12:00 10/15/24 18:54 0.5 MG Albuterol 2.5 mg Q6HPRN PRN NEB 10/09/24 11:00 10/15/24 13:02 2.5 MG Apixaban 5 mg BID PO 10/10/24 22:00 10/15/24 21:21 5 MG Levofloxacin/ Dextrose 100 ml @ 100 mls/hr DAILY IV 10/13/24 11:15 10/15/24 09:37 100 MLS/HR objective Gen.: Patient lying in bed in no apparent distress. On supplemental oxygen. Head: Normocephalic, atraumatic. Eyes: EOMI/PERRLA. Ears: Normal hearing. Normal anatomy. Neck/trachea: Trachea midline, supple. Nose: Normal external anatomy. Mouth: Moist mucous membranes. Chest: Decreased air entry bilaterally. No wheezing or rhonchi. Cardiovascular: Positive S1, positive S2. Regular rate and rhythm. Abdomen: Positive bowel sounds in all 4 quadrants. Soft, non-tender, non- distended. : Deferred. Rectal: Deferred. Skin: Warm, dry. Intact. Extremities: 2+ radial pulses bilaterally. No lower extremity edema. Neuro: Awake, alert, oriented x3. No gross motor or sensory deficits. Cranial nerves II through XII intact. Gait not assessed. laboratory and microbiology Laboratory Tests 10/13/24 11:38 10/13/24 11:35 Test 10/13/24 11:35 Range/Units Serum Glucose 109 H 74-106 mg/dL Assessment/Plan Impression: Acute hypoxemic respiratory failure Altered mental status Pneumonia, likely gram negative Epistaxis Atelectasis Events: Patient seen and examined Low oxygen requirements On 2 liters per minute nasal cannula Taper O2 as tolerated BiPAP PRN. CXR reviewed, demonstrates cardiomegaly with CHF. Small left pleural effusion. Head of bed elevation Aspiration precautions Continue bronchodilators Continue abx Incentive spirometry Eliquis BID Follow up Neuro recommendations Monitor renal function Monitor electrolytes. Supplement as needed Potassium supplementation Poor prognosis EEG reviewed, moderately abnormal EEG. This EEG is seen in moderate cerebral dysfunction due to metabolic/hypoxic encephalopathy or medication effects, please correlate clinically Neurology recommendations appreciated Labs and imaging reviewed Rest of plan as noted below Plan: Supplemental oxygen Titrate to keep O2 sats above 92%. BiPAP PRN. Incentive spirometry Bronchodilators Continue abx Eliquis BID Monitor renal function Monitor electrolytes Supplement as needed DVT prophylaxis Prognosis: Poor given patient's multiple co-morbidities. Rest of plan per hospitalist and other consultants. Thank you Dr. Nix for allowing me to participate in this patient's care. Further recommendations will depend on the patient's clinical course. Please do not hesitate to contact me if you have any questions or concerns. This medical document was created using an electronic medical record system with [employer] dictation system. Although these documentations are being carefully reviewed, there may still be some phonetic and typographical changes. The errors are purely typographical, due to imperfection on the software program, and do not reflect any compromise in the patient's medical care. Dietary Evaluation Review Recommendations by RD: Protein Supplementation Comments: 1) Initiate Ensure Enlive qd. Encourage optimal intake 2) Initiate Pro-Stat @ 30 mL qd. 3) Refer to outpatient RD for weight management 4) Follow-up with cardiology and nephrology 5) Continue to monitor I&O, labs, and skin integrity Expected Outcomes/Goals: 1) appetite and labs to improve 2) wound to improve 3) f/u in 3-5 days Plan discussed with: Patient, Other (RN) RYAN FLOOD MD October 15, 2024 23:50
[2024-10-16] VITALS (11 sets, daily range): BP systolic 81–117; BP diastolic 39–59; PULSE 80–100; RESP 16–20; TEMP 98.2–98.8; O2SAT 92–100
--- NOTE | 2024-10-16 08:32 | DVHPN2 ---
Progress Note - Dictate Date Seen: October 16, 2024 Medical Necessity Reason Pt with a Central, PICC or Fol: Yes The following are medically ne: Esquivel Catheter Reason for esquivel catheter: Strict I&O vital signs Vital Sign Date Time Temp Pulse Resp B/P (MAP) Pulse Ox O2 Delivery O2 Flow Rate FiO2 10/16/24 07:04 87 19 100 10/16/24 06:58 Nasal Cannula* 3 32 10/16/24 05:00 98.8 99/58 (72) 98.8 Total Intake and Output 10/15/24 10/15/24 10/16/24 15:00 23:00 07:00 Intake Total 744 ml 400 ml 200 ml Output Total 350 ml 300 ml Balance 744 ml 50 ml -100 ml medications Current Medications Medications Dose Ordered Sig/Rj Route Start Time Stop Time Status Last Admin Dose Admin Acetaminophen 325 mg Q4HP PRN PO 10/08/24 22:30 Acetaminophen/ Hydrocodone Bitart 1 tab Q4HP PRN PO 10/08/24 22:30 10/14/24 23:22 1 TAB Ondansetron HCl 4 mg Q4HP PRN IV 10/08/24 22:30 Nitroglycerin 0.4 mg Q5MINP PRN SL 10/08/24 22:30 Morphine Sulfate 2 mg Q30M PRN IV 10/08/24 22:30 Haloperidol Lactate 5 mg [id number] PRN IM 10/09/24 04:15 10/09/24 12:20 5 MG Sacubitril/ Valsartan 1 tab BID PO 10/09/24 10:00 10/15/24 21:21 1 TAB Enoxaparin Sodium 120 mg DAILY SC 10/09/24 10:00 UNV Digoxin 0.125 mg DAILY@LUNCH PO 10/09/24 12:00 10/11/24 13:08 0.125 MG Levothyroxine Sodium 112 mcg QAM PO 10/10/24 07:00 10/16/24 06:56 112 MCG Ipratropium Caroline 0.5 mg Q6HWA NEB 10/09/24 12:00 10/16/24 06:58 0.5 MG Albuterol 2.5 mg Q6HPRN PRN NEB 10/09/24 11:00 10/16/24 06:58 2.5 MG Apixaban 5 mg BID PO 10/10/24 22:00 10/15/24 21:21 5 MG Levofloxacin/ Dextrose 100 ml @ 100 mls/hr DAILY IV 10/13/24 11:15 10/15/24 09:37 100 MLS/HR laboratory and microbiology Laboratory Tests 10/13/24 11:38 10/13/24 11:35 Test 10/13/24 11:35 Range/Units Serum Glucose 109 H 74-106 mg/dL Assessment/Plan Patient is a 79 year old female who was transferred from [facility]. She was transferred for nosebleed. Does have old history of atrial fibrillation and is on Xarelto as outpatient. She is confused and not source of history. Cardiology was involved for cardiac aspects of care and questioning if the anticoagulation needs to be continued. It seems that the patient was recently in the hospital with encephalopathy/sepsis. Information was obtained by reviewing the chart and communicating with staff. There is no report of chest pain. There is no report of hypotension. Obese lady. Lying flat in bed. Not in acute distress. No active nosebleed at the time of evaluation. Mucosa is pink and wet. Not using accessory muscles of breathing. Scattered rhonchi in the lungs is heard. No rales. Cardiac: Irregular, no thrill. Systolic murmur 2/6 in the apex is heard. Abdomen is soft. There is no gross mass/hepatomegaly. Extremities reveal 1+ edema bilaterally. Past medical history includes morbid obesity, atrial fibrillation, anemia, CKD, hypothyroidism, depression, GERD, hyperlipidemia, diverticulosis, moderate aortic stenosis and heart failure. She was recently in the hospital. Encephalopathy/sepsis. She was recently treated for urosepsis. Echocardiogram of September 24, 2024 had revealed ejection fraction of 40-45%, moderate aortic stenosis and mild tricuspid regurgitation. Troponin (high sensitive): Chest x-ray reported: IMPRESSION: 1. Bilateral perihilar infiltrates with involvement of the right upper lobe and left lower lobe. Repeat x-ray revealed IMPRESSION: 1. Cardiomegaly with CHF. Small left pleural effusion CT Brain revealed no acute intracranial abnormality. EEG revealed this is a moderately abnormal EEG, this EEG seen in moderate cerebral dysfunction due to metabolic/hypoxic encephalopathy or medication effects, please correlate clinically EKG revealed atrial fibrillation with moderate ventricular response Tele reveals atrial fibrillation with moderate ventricular response (now rate controlled) Patient is a 79-year-old female who presented with nosebleed. It seems that the nosebleed has been mostly secondary to patient's probing on it (as per nurse). Does have baseline history of atrial fibrillation and heart failure. Recognizing comorbidities, CHADS-VASc score is high and long-term full anticoagulation is advised to prevent CVA and embolic problems. At this point, as the patient was having nosebleed, you can hold anticoagulation. Patient is somewhat confused and encephalopathy can be considered. Nosebleed Atrial fibrillation, chronic Heart failure, diastolic Valvular heart disease Moderate aortic stenosis Encephalopathy Morbid obesity Hypothyroidism Hyperlipidemia Cardiac suggestion for management: Manage on telemetry Follow-up electrolytes and kidney function tests and correct abnormalities Presently, can hold anticoagulation until resolution of the nosebleed (resolved) Long-term continuation of anticoagulation is advised. Guideline directed medical therapy for systolic heart failure is advised On Entresto 24-26mg twice daily Neurology evaluation for encephalopathy ongoing Further evaluation and management depends on the above and clinical course Thank you for consultation A total of 75 minutes was spent reviewing the patient record, examining the patient, making a diagnostic and therapeutic plan, discussing this plan with medical personnel, following up on diagnostic studies and following the patient for clinical stability excluding any and all procedures. At least 50% of this time was spent in direct, [id number] contact. Thank you for allowing me to participate in this patient's care. Further recommendations will depend on patient's clinical course. Please do not hesitate to contact me if you have any questions or concerns. This medical document was created using electronic medical record system with [employer] computerized dictation system. Although this document has been carefully reviewed, there may still be some phonetic and typographical errors. These areas are purely typographical due to the imperfection of the software programs, and do not reflect any compromise in the patient's medical care. Dietary Evaluation Review Recommendations by RD: Protein Supplementation Comments: 1) Initiate Ensure Enlive qd. Encourage optimal intake 2) Initiate Pro-Stat @ 30 mL qd. 3) Refer to outpatient RD for weight management 4) Follow-up with cardiology and nephrology 5) Continue to monitor I&O, labs, and skin integrity Expected Outcomes/Goals: 1) appetite and labs to improve 2) wound to improve 3) f/u in 3-5 days Plan discussed with: Patient (Patient and Primary RN ) ZULMA GORDONP October 16, 2024 08:32
[2024-10-16 12:25] LABS: Basophils # (auto) 0.1 10 ^3/uL (0-0.2); Eosinophils # (auto) 0.1 10 ^3/uL (0-0.8); Eosinophils % (auto) 1.5 % (0.0-7.0); Hematocrit 30.4 % (36.0-46.0); Hemoglobin 9.6 g/dL (12.2-16.2); Lymphocytes # (auto) 0.7 10 ^3/uL (0.4-5.4); Lymphocytes % (auto) 12.4 % (10.0-50.0); Mean Corpuscular Hemoglobin 25.5 pg (28.0-32.0); Mean Corpuscular Hgb Conc. 31.7 g/dL (32.0-36.0); Mean Corpuscular Volume 80.6 fL (80.0-100.0); Monocytes # (auto) 0.8 10 ^3/uL (0-1.3); Monocytes % (auto) 13.4 % (0.0-12.0); Neutrophils # (auto) 4.3 10 ^3/uL (1.6-8.6); Neutrophils % (auto) 71.7 % (37.0-80.0); Nucleated Red Blood Cells % 0.1 %; Platelet Count (auto) 193 10^3/uL (140-450); Red Blood Cells 3.77 10^6/uL (4.0-5.20); White Blood Cell 5.9 10^3/uL (4.4-10.8)
[2024-10-16 12:27] LABS: Red Cell Distribution Width 33.4 % (11.8-14.3)
[2024-10-16 12:32] LABS: Chloride 102 mmol/L (98-107); Potassium 3.8 mmol/L (3.5-5.1); Sodium 142 mmol/L (136-145)
[2024-10-16 12:33] LABS: Anion Gap 4 (5-15); Calcium 9.2 mg/dL (8.7-10.4)
[2024-10-16 12:38] LABS: BUN/Creatinine Ratio 14.7 (10.0-20.0); Blood Urea Nitrogen 11 mg/dL (9-23); Glucose 91 mg/dL (74-106)
[2024-10-16 12:42] LABS: Carbon Dioxide 36 mmol/L (20-31)
[2024-10-16 13:00] LABS: Anisocytosis Marked; Ovalocytes FEW; Platelet Estimate Adequate; Target Cell MODERATE
--- NOTE | 2024-10-16 17:31 | DVHDS2 ---
Discharge Summary Date of Admission October 08, 2024 at 22:30 Date of Discharge: October 16, 2024 Admitting Diagnosis Acute hypoxic respiratory failure likely from pneumonia Labs/Diagnostic Data: Laboratory Results Test 10/16/24 12:10 10/14/24 09:21 10/13/24 11:38 10/13/24 11:35 White Blood Count 5.9 10^3/uL (4.4-10.8) Red Blood Count 3.77 10^6/uL (4.0-5.20) Hemoglobin 9.6 g/dL (12.2-16.2) Hematocrit 30.4 % (36.0-46.0) Mean Corpuscular Volume 80.6 fL (80.0-100.0) Mean Corpuscular Hemoglobin 25.5 pg (28.0-32.0) Mean Corpuscular Hemoglobin Concent 31.7 g/dL (32.0-36.0) Red Cell Distribution Width 33.4 % (11.8-14.3) Platelet Count 193 10^3/uL (140-450) Mean Platelet Volume 8.1 fL (6.9-10.8) Neutrophils (%) (Auto) 71.7 % (37.0-80.0) Lymphocytes (%) (Auto) 12.4 % (10.0-50.0) Monocytes (%) (Auto) 13.4 % (0.0-12.0) Eosinophils (%) (Auto) 1.5 % (0.0-7.0) Basophils (%) (Auto) 1.0 % (0.0-2.0) Neutrophils # (Auto) 4.3 10 ^3/uL (1.6-8.6) Lymphocytes # (Auto) 0.7 10 ^3/uL (0.4-5.4) Monocytes # (Auto) 0.8 10 ^3/uL (0-1.3) Eosinophils # (Auto) 0.1 10 ^3/uL (0-0.8) Basophils # (Auto) 0.1 10 ^3/uL (0-0.2) Nucleated Red Blood Cells 0.1 % Platelet Estimate Adequate Anisocytosis (manual) Marked Target Cells Moderate Ovalocytes Few Schistocytes Few Sodium Level 142 mmol/L (136-145) Potassium Level 3.8 mmol/L (3.5-5.1) Chloride Level 102 mmol/L (98-107) Carbon Dioxide Level 36 mmol/L (20-31) Anion Gap 4 (5-15) Blood Urea Nitrogen 11 mg/dL (9-23) Creatinine 0.75 mg/dL (0.550-1.02) Glomerular Filtration Rate Calc 82 mL/min (>90) BUN/Creatinine Ratio 14.7 (10.0-20.0) Serum Glucose 91 mg/dL (74-106) Calcium Level 9.2 mg/dL (8.7-10.4) Digoxin Level 0.23 ng/mL (0.8-2) Microcytosis Slight Phosphorus Level 2.2 mg/dL (2.4-5.1) Magnesium Level 1.8 mg/dL (1.6-2.6) Test 10/12/24 18:23 10/11/24 05:31 10/10/24 12:00 10/09/24 06:58 Hypochromasia (manual) Slight Total Bilirubin 1.2 mg/dL (0.2-1.0) Aspartate Amino Transferase (AST) 85 U/L (13-40) Alanine Aminotransferase (ALT) 22 U/L (7-40) Alkaline Phosphatase 59 U/L (46-116) Total Protein 4.1 g/dL (5.7-8.2) Albumin 2.1 g/dL (3.2-4.8) B-Type Natriuretic Peptide 449.34 pg/mL (0-100) Poikilocytosis (manual) Moderate Stomatocytes Moderate Thyroid Stimulating Hormone (TSH) 26.49 uIU/mL (0.55-4.78) Test 10/08/24 22:49 10/08/24 22:00 10/08/24 19:50 Troponin I High Sensitivity 12 ng/L (</=34) Urine Color Yellow (Yellow) Urine Clarity Turbid (Clear) Urine pH 5.5 (5.0-9.0) Urine Specific [place] 1.023 (1.001-1.035) Urine Protein Trace (Negative) Urine Ketones Trace (Negative) Urine Blood Negative /uL (Negative) Urine Nitrite Negative (Negative) Urine Bilirubin Negative (Negative) Urine Urobilinogen Normal mg/dL (Negative) Urine Leukocyte Esterase 1+ /uL (Negative) Urine RBC <1 /hpf (0 - 4) Urine Microscopic WBC 13 /HPF (0-5) Urine Squamous Epithelial Cells Few /hpf (<5) Urine Calcium Oxalate Crystals Few (None Seen) Urine Bacteria Few /hpf (None Seen) Urine Hyaline Casts Mod /lpf (0 - 2) Urine Mucus Few (None Seen) Urine Glucose Normal mg/dL (Normal) Differential Total Cells Counted 100.0 (100) Neutrophils % (Manual) 64 (37.0-80.0) Band Neutrophils % (Manual) 0 Lymphocytes % (Manual) 17 (10.0-50.0) Monocytes % (Manual) 18 (0-12) Eosinophils % (Manual) 1 (0-7) Basophils % (Manual) 0 (0.0-2.0) Metamyelocytes % (manual) 0 Myelocytes % (Manual) 0 Promyelocytes % (Manual) 0 Blast Cells % (Manual) 0 Reactive Lymphocytes 0 Prothrombin Time 15.7 sec (9.3-11.8) Prothrombin Time INR 1.55 (0.9-1.15) Activated Partial Thromboplast Time 36.2 SEC (24.5-34.5) Lactic Acid Level 2.0 mmol/L (0.4-2.0) Other Laboratory Tests 10/16/24 12:10 Brief Hx & Hospital Course: Patient was admitted for acute hypoxic respiratory failure likely related to pneumonia. Patient was given IV Levaquin and had improvement in mental status. Patient was also admitted for metabolic encephalopathy likely related to acute cystitis. Patient is mental status did return back to baseline. Patient will be discharged to halfway facility for continued physical therapy. Condition at Discharge: Fair Final Diagnosis/Problems List 1. Acute hypoxic respiratory failure 2. Acute blood loss from epistaxis 3. Hypernatremia 4. PNA likley gram negative or gram positive 5. Persistent atrial fibrillation 6. Chronic anticoagulation on Xarelto 7. Recent history of sepsis due to UTI with MDRO 8. hyperbilirubinemia 9. Metabolic encephalopathy likley from acute cystitis Discharge Disposition: Assisted Facility Discharge Instruct/Medications Diet: Cardiac 2g Na,low cholest Activity: No Restrictions, As Tolerated Discharge Statement: "Patient was advised to return to the ER or call 911 if any headaches, dizziness, shortness of breath, chest pain, abdominal pain, bleeding, fevers, or worsening of medical condition. Patient was counseled about treatment plan, medications, possible side effects, patient�verbalized understanding. All questions were answered to the best of my ability. This discharge took greater then 30 minutes in planning, reviewing documentation, counseling the patient, and discussing with other team members." ASSESSMENT ASSESSMENT Assessment 1. Acute hypoxic respiratory failure 2. Acute blood loss from epistaxis 3. Hypernatremia 4. PNA likley gram negative or gram positive 5. Persistent atrial fibrillation 6. Chronic anticoagulation on Xarelto 7. Recent history of sepsis due to UTI with MDRO 8. hyperbilirubinemia 9. Metabolic encephalopathy sharon from acute cystitis [facility] October 16, 2024 17:31
--- NOTE | 2024-10-16 21:35 | DVHPN2 ---
Progress Note - Dictate Date Seen: October 16, 2024 Medical Necessity Reason Pt with a Central, PICC or Fol: Yes The following are medically ne: Esquivel Catheter Reason for esquivel catheter: Strict I&O Subjective Patient seen and examined at bedside. Remains on supplemental oxygen Overnight events reviewed. vital signs Vital Sign Date Time Temp Pulse Resp B/P (MAP) Pulse Ox O2 Delivery O2 Flow Rate FiO2 10/16/24 14:37 98.8 100 18 93 10/16/24 13:00 96/57 (70) 10/16/24 10:15 Nasal Cannula* 2 28 Total Intake and Output 10/15/24 10/15/24 10/16/24 15:00 23:00 07:00 Intake Total 744 ml 400 ml 200 ml Output Total 350 ml 300 ml Balance 744 ml 50 ml -100 ml medications Current Medications Medications Dose Ordered Sig/Rj Route Start Time Stop Time Status Last Admin Dose Admin Enoxaparin Sodium 120 mg DAILY SC 10/09/24 10:00 UNV objective Gen.: Patient lying in bed in no apparent distress. On supplemental oxygen. Head: Normocephalic, atraumatic. Eyes: EOMI/PERRLA. Ears: Normal hearing. Normal anatomy. Neck/trachea: Trachea midline, supple. Nose: Normal external anatomy. Mouth: Moist mucous membranes. Chest: Decreased air entry bilaterally. No wheezing or rhonchi. Cardiovascular: Positive S1, positive S2. Regular rate and rhythm. Abdomen: Positive bowel sounds in all 4 quadrants. Soft, non-tender, non- distended. : Deferred. Rectal: Deferred. Skin: Warm, dry. Intact. Extremities: 2+ radial pulses bilaterally. No lower extremity edema. Neuro: Awake, alert, oriented x3. No gross motor or sensory deficits. Cranial nerves II through XII intact. Gait not assessed. laboratory and microbiology Laboratory Tests 10/16/24 12:10 Test 10/16/24 12:10 Range/Units Serum Glucose 91 74-106 mg/dL Assessment/Plan Impression: Acute hypoxemic respiratory failure Altered mental status Pneumonia, likely gram negative Epistaxis Atelectasis Events: Patient seen and examined Low oxygen requirements On 2 liters per minute nasal cannula Taper O2 as tolerated Head of bed elevation Aspiration precautions Continue bronchodilators Continue abx Incentive spirometry Monitor hemoglobin Eliquis BID DVT prophylaxis Disposition per hospitalist Labs and imaging reviewed Rest of plan as noted below Plan: Supplemental oxygen Titrate to keep O2 sats above 92%. BiPAP PRN. Incentive spirometry Bronchodilators Continue abx Eliquis BID Monitor renal function Monitor electrolytes Supplement as needed DVT prophylaxis Prognosis: Poor given patient's multiple co-morbidities. Rest of plan per hospitalist and other consultants. Thank you Dr. Nix for allowing me to participate in this patient's care. Further recommendations will depend on the patient's clinical course. Please do not hesitate to contact me if you have any questions or concerns. This medical document was created using an electronic medical record system with [employer] system. Although these documentations are being carefully reviewed, there may still be some phonetic and typographical changes. The errors are purely typographical, due to imperfection on the software program, and do not reflect any compromise in the patient's medical care. Dietary Evaluation Review Recommendations by RD: Protein Supplementation Comments: 1) Initiate Ensure Enlive qd. Encourage optimal intake 2) Initiate Pro-Stat @ 30 mL qd. 3) Refer to outpatient RD for weight management 4) Follow-up with cardiology and nephrology 5) Continue to monitor I&O, labs, and skin integrity Expected Outcomes/Goals: 1) appetite and labs to improve 2) wound to improve 3) f/u in 3-5 days Plan discussed with: Patient, Other (TOMASZ Bobby) RYAN FLOOD MD October 16, 2024 21:35
== END 2024-10-16 16:20 | disposition home or self-care (01) | DRG 177 ==
LOC: EDUNIT# 19:22 → EDBD 19:22 → ER 19:22 → OVERFLOW 22:30 → TELE-EAST 10-09 17:15
PROVIDERS: ADMIT Nurse Practitioner; ATTEND Nurse Practitioner
DX: J15.69 Pneumonia due to other Gram-negative bacteria (principal); G93.41 Metabolic encephalopathy; J96.01 Acute respiratory failure with hypoxia; N30.00 Acute cystitis without hematuria; D62 Acute posthemorrhagic anemia; E87.0 Hyperosmolality and hypernatremia; I48.19 Other persistent atrial fibrillation; I50.42 Chronic combined systolic (congestive) and diastolic (congestive) heart failure; I13.0 Hypertensive heart and chronic kidney disease with heart failure and stage 1 through stage 4 chronic kidney disease, or unspecified chronic kidney disease; J44.0 Chronic obstructive pulmonary disease with (acute) lower respiratory infection; G40.209 Localization-related (focal) (partial) symptomatic epilepsy and epileptic syndromes with complex partial seizures, not intractable, without status epilepticus; E87.29 Other acidosis; Z68.41 Body mass index [BMI] 40.0-44.9, adult; J15.9 Unspecified bacterial pneumonia; E80.6 Other disorders of bilirubin metabolism; N18.30 Chronic kidney disease, stage 3 unspecified; R04.0 Epistaxis; K21.9 Gastro-esophageal reflux disease without esophagitis; E78.5 Hyperlipidemia, unspecified; E03.9 Hypothyroidism, unspecified; F32.A Depression, unspecified; F41.9 Anxiety disorder, unspecified; Z88.5 Allergy status to narcotic agent; Z88.1 Allergy status to other antibiotic agents; Z88.8 Allergy status to other drugs, medicaments and biological substances; Z79.01 Long term (current) use of anticoagulants; Z79.899 Other long term (current) drug therapy
CPT/HCPCS: 36415; 36600; 70450; 71045; 80048; 80053; 80162; 81001; 82805; 83605; 83735; 83880; 84100; 84443; 84484; 85007; 85025; 85027; 85610; 85730; 87040; 87081; 93005; 94640; 95819; 96365; 96372; 97110; 97116; 97163; 97530; 99291; G0378; J1956; J7060